=== PATIENT | male | born 1950 | race Caucasian/White ===

== ENCOUNTER 2018-05-12 14:52 | Emergency (ER) | payer OTHER, MEDICARE ==
--- NOTE | 2018-05-12 15:33 | ERPHSYRPT ---
- History of Present Illness Time Seen by Provider: 05/12/18 15:22 Historian: patient Patient Subjective Stated Complaint: sent by Dr Burroughs for an event on his holter of 8 second pause. states has had pain in his left chest x 3 days. denies SOB. denies cough , fever. Triage Nursing Assessment: alert and oriented with c/o CP x 3 days and has had an episode of 8 seconds pwer his Holter.. was told by Dr Burroughs to come to ER. pain in the best chest non radiating. no swelling noted. denies cough Physician History: 67-year-old white male with history of atherosclerotic coronary artery disease, CABG, CVA, myocardial infarctions. Patient arrives on the advice of his physician Dr. Pereira. Patient apparently had an 8 second positive on a Holter monitor. He states that he has been having dull pain which can be located with 1 finger on his left lateral chest for 3 days not associated with breathing. He denies nausea vomiting he states he is not short of breath. Past medical history includes CVA 3 myocardial infarction 2, adult-onset diabetes mellitus which does not require treatment, high blood pressure, atherosclerotic coronary artery disease, coronary artery bypass, Past surgical history includes right carotid endarterectomy, CABG, and cholecystectomy Social history patient denies tobacco alcohol or illicit drug use Timing/Duration: other (left-sided chest pain for 3 days, positive on Holter monitor today 8 seconds in duration) Quality: dullness Location: other (left lateral chest) Chest Pain Radiation: no radiation Severity of Pain-Max: moderate Severity of Pain-Current: mild Modifying Factors: Improves With: nothing Associated Symptoms: No nausea, No vomiting, No palpitations, No heartburn, No abdominal pain, No shortness of breath, No cough, No hurts to breathe, No diaphoresis, No chills, No fever, No fatigue, No weakness, No swelling/lump in chest, No syncope, No rash, No headache, No dizziness, No edema, No back pain Prior Chest Pain/Cardiac Workup: cardiac cath, heart attack Nitro Today/Relief: no nitro taken today Aspirin Treatment Today: 81 mg x 1 (at home), 81 mg x 3 (in er) Allergies/Adverse Reactions: Penicillins Allergy (Intermediate, Verified 05/12/18 15:28) - Review of Systems Constitutional: No Fever, No Chills Eyes: No Symptoms Ears, Nose, & Throat: No Symptoms Respiratory: No Cough, No Dyspnea Cardiac: Chest Pain (localize pain left lateral chest, dull can be located with one fingertip) Abdominal/Gastrointestinal: No Abdominal Pain, No Nausea, No Vomiting, No Diarrhea Genitourinary Symptoms: No Dysuria Musculoskeletal: No Back Pain, No Neck Pain Skin: No Rash Neurological: No Dizziness, No Focal Weakness, No Sensory Changes Psychological: No Symptoms Endocrine: No Symptoms All Other Systems: Reviewed and Negative - Past Medical History Pertinent Past Medical History: Yes Cardiac History: Coronary Artery Disease GI Medical History: GERD - Past Surgical History Past Surgical History: Yes Cardiac: CABG - Social History Smoking Status: Former smoker Exposure to second hand smoke: No Drug Use: none Patient Lives Alone: No - Nursing Vital Signs Nursing Vital Signs: Initial Vital Signs Temperature 97.8 F 05/12/18 15:12 Pulse Rate 76 05/12/18 15:12 Respiratory Rate 18 05/12/18 15:12 Blood Pressure 183/76 05/12/18 15:12 O2 Sat by Pulse Oximetry 97 05/12/18 15:12 Pain Scale Pain Intensity 6 - Physical Exam General Appearance: no apparent distress, alert Eye Exam: PERRL/EOMI, eyes nml inspection Ears, Nose, Throat Exam: normal ENT inspection, moist mucous membranes Neck Exam: normal inspection, non-tender, supple, full range of motion Respiratory Exam: normal breath sounds, lungs clear, No respiratory distress Cardiovascular Exam: regular rate/rhythm, normal peripheral pulses, capillary refill <2 sec Gastrointestinal/Abdomen Exam: soft, No tenderness, No mass Back Exam: normal inspection, No CVA tenderness, No vertebral tenderness Extremity Exam: normal inspection, normal range of motion Neurologic Exam: alert, oriented x 3, cooperative, 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, normal mood/affect, sensation nml, No motor deficits Skin Exam: normal color, warm, dry SpO2 Interpretation: normal (96%), borderline oxygenation SpO2: 96 Oxygen Delivery: Room Air - Course Nursing assessment & vital signs reviewed: Yes EKG Interpreted by Me: RATE (74 bpm), Other (EKG: Sinus arrhythmia,with PVCs, 74 beats per minute, left axis deviation, right bundle branch block,no acute ST or T wave changes) Ordered Tests: Active Orders 24 hr Category Date Time Status French Binder STAT Care 05/12/18 15:17 Active EKG-ER Only STAT Care 05/12/18 15:17 Active IV Insertion STAT Care 05/12/18 15:17 Active Pulse Oximetry (ED) STAT Care 05/12/18 15:17 Active CHEST 1 VIEW (PORTABLE) Stat Exams 05/12/18 15:17 Completed CBC W DIFF Stat Lab 05/12/18 15:50 Completed CMP Stat Lab 05/12/18 15:50 Completed D-DIMER QUANTITATION Stat Lab 05/12/18 15:50 Completed NT PRO BNP Stat Lab 05/12/18 15:50 Completed PROTIME WITH INR Stat Lab 05/12/18 15:50 Completed PTT Stat Lab 05/12/18 15:50 Completed TROPONIN Q3H Lab 05/12/18 15:50 Completed TROPONIN Q3H Lab 05/12/18 18:30 Ordered TROPONIN Q3H Lab 05/12/18 21:30 Ordered TROPONIN Q3H Lab 05/13/18 00:30 Ordered TROPONIN Q3H Lab 05/13/18 03:30 Ordered Medication Summary Discontinued Medications Generic Name Dose Route Start Last Admin Trade Name Freq PRN Reason Stop Dose Admin Aspirin 243 mg 05/12/18 15:50 05/12/18 16:24 Baby Aspirin 81 Mg Chew PO 05/12/18 15:51 243 mg STAT ONE Administration Morphine Sulfate 2 mg 05/12/18 17:09 05/12/18 17:15 Morphine Sulfate 2 Mg Inj IV 05/12/18 17:10 2 mg STAT ONE Administration Morphine Sulfate Confirm 05/12/18 17:12 Morphine Sulfate 2 Mg Inj Administered 05/12/18 17:13 Dose 2 mg .ROUTE .STK-MED ONE Ondansetron HCl 4 mg 05/12/18 17:09 05/12/18 17:16 Zofran 4 Mg/2 Ml Vial IV 05/12/18 17:10 4 mg STAT ONE Administration Ondansetron HCl Confirm 05/12/18 17:12 Zofran 4 Mg/2 Ml Vial Administered 05/12/18 17:13 Dose 4 mg .ROUTE .STK-MED ONE Lab/Rad Data: Laboratory Result Diagrams 05/12/18 15:50 05/12/18 15:50 Laboratory Results 12/19/18 12/19/18 12/19/18 Range/Units 15:50 15:50 15:50 WBC (4.0-10.5) K/mm3 RBC (4.1-5.6) M/mm3 Hgb (12.5-18.0) gm/dl Hct (42-50) % MCV (78-100) fl MCH (26-32) pg MCHC (32-36) g/dl RDW (11.5-14.0) % Plt Count (150-450) K/mm3 MPV (6-9.5) fl Gran % (36.0-66.0) % Eos # (Auto) (0-0.5) Absolute Lymphs (auto) (1.0-4.6) Absolute Monos (auto) (0.0-1.3) Lymphocytes % (24.0-44.0) % Monocytes % (0.0-12.0) % Eosinophils % (0.00-5.0) % Basophils % (0.0-0.4) % Absolute Granulocytes (1.4-6.9) Basophils # (0-0.4) PT 11.9 (8.83-12.87) SECONDS INR 1.02 (0.8-3.0) APTT 31.4 (24.1-36.1) SECONDS D-Dimer 722 H* (215-500) ng/mL Sodium 139 (137-145) mmol/L Potassium 4.1 (3.5-5.1) mmol/L Chloride 102 (98-107) mmol/L Carbon Dioxide 27 (22-30) mmol/L Anion Gap 13.5 (5-15) MEQ/L BUN 9 (9-20) mg/dL Creatinine 1.06 (0.66-1.25) mg/dL Estimated GFR > 60.0 ML/MIN Glucose 166 H (74-106) mg/dL Calcium 8.3 L (8.4-10.2) mg/dL Total Bilirubin 0.40 (0.2-1.3) mg/dL AST 30 (17-59) U/L ALT 26 (0-50) U/L Alkaline Phosphatase 104 (38-126) U/L Troponin I < 0.012 (0.000-0.034) ng/mL NT-Pro-B Natriuret Pep 157 (0-900) pg/mL Serum Total Protein 8.1 (6.3-8.2) g/dL Albumin 3.7 (3.5-5.0) g/dL 05/12/18 Range/Units 15:50 WBC 2.9 L (4.0-10.5) K/mm3 RBC 4.70 (4.1-5.6) M/mm3 Hgb 14.1 (12.5-18.0) gm/dl Hct 43.2 (42-50) % MCV 91.9 (78-100) fl MCH 30.0 (26-32) pg MCHC 32.6 (32-36) g/dl RDW 14.8 H (11.5-14.0) % Plt Count 151 (150-450) K/mm3 MPV 11.7 H (6-9.5) fl Gran % 54.6 (36.0-66.0) % Eos # (Auto) 0.17 (0-0.5) Absolute Lymphs (auto) 0.96 L (1.0-4.6) Absolute Monos (auto) 0.19 (0.0-1.3) Lymphocytes % 32.8 (24.0-44.0) % Monocytes % 6.5 (0.0-12.0) % Eosinophils % 5.8 H (0.00-5.0) % Basophils % 0.3 (0.0-0.4) % Absolute Granulocytes 1.60 (1.4-6.9) Basophils # 0.01 (0-0.4) PT (8.83-12.87) SECONDS INR (0.8-3.0) APTT (24.1-36.1) SECONDS D-Dimer (215-500) ng/mL Sodium (137-145) mmol/L Potassium (3.5-5.1) mmol/L Chloride (98-107) mmol/L Carbon Dioxide (22-30) mmol/L Anion Gap (5-15) MEQ/L BUN (9-20) mg/dL Creatinine (0.66-1.25) mg/dL Estimated GFR ML/MIN Glucose (74-106) mg/dL Calcium (8.4-10.2) mg/dL Total Bilirubin (0.2-1.3) mg/dL AST (17-59) U/L ALT (0-50) U/L Alkaline Phosphatase (38-126) U/L Troponin I (0.000-0.034) ng/mL NT-Pro-B Natriuret Pep (0-900) pg/mL Serum Total Protein (6.3-8.2) g/dL Albumin (3.5-5.0) g/dL - Progress Progress: improved Air Movement: fair Progress Note: 05/12/18 17:19 67-year-old white male arrives with complaint of 3 days of dull chest pain left lateral chest which can be described with one finger symptoms going on for 3 days patient was noted to have a pause on a Holter monitor by his family doctor which lasted 8 seconds. Patient was in no acute distress on arrival however he had a period where he was showing frequent PVCs where he was starting to feel dizzy in the emergency room. . Patient was given aspirin in the emergency room also morphine for pain. Patient's EKG sinus arrhythmia 74 bpm left axis deviation and complete right bundle branch block no acute ST or T wave changes are noted PVCs were noted Patient with normal troponin, d-dimer was elevated at 722 chemistry essentially normal with the exception of a glucose of 166 patient's CBC white blood cell 2.9 hemoglobin 14.1 hematocrit 43.1 platelets 151 I had considered obtaining a CTA on the patient's chest however the family and the patient did not want to do this they felt that they would prefer to have procedures done at the receiving facility. Patient's chest x-ray nonacute chest Patient's vitals were stable I contacted [facility] one call. She also accepted the patient for transfer to [facility] receiving physician will be Dr. Wood. - Departure Time of Disposition: 17:23 Departure Disposition: Transfer ([facility]) Clinical Impression: Abnormal Holter monitor finding Chest pain Qualifiers: Chest pain type: unspecified Qualified Code(s): R07.9 - Chest pain, unspecified Dysrhythmia Qualifiers: Arrhythmia type: unspecified cardiac arrhythmia Qualified Code(s): I49.9 - Cardiac arrhythmia, unspecified Condition: Fair Critical Care Time: No Referrals: LIZET PEREIRA [Primary Care Provider] -
--- NOTE | 2018-05-12 16:16 | XRAY ---
Indication: Left sided chest pain. Comparison: None Portable chest clear. Heart is not enlarged with incidental CABG surgery. Bony thorax intact. Impression: Nonacute chest.
[2018-05-12 16:17] LABS: BASOPHIL % 0.3 % (0.0-0.4); Basophil (Absolute #) 0.01 (0-0.4); Eosinophil % 5.8 % (0.00-5.0); Eosinophil (Absolute #) 0.17 (0-0.5); Granulocytes % 54.6 % (36.0-66.0); Hematocrit 43.2 % (42-50); Hemoglobin 14.1 gm/dl (12.5-18.0); Lymphocyte (Absolute #) 0.96 (1.0-4.6); Lymphocytes % 32.8 % (24.0-44.0); Mean Cell Volume 91.9 fl (78-100); Mean Corpuscular Hgb Concent. 32.6 g/dl (32-36); Mean Platelet Volume 11.7 fl (6-9.5); Monocyte (Absolute #) 0.19 (0.0-1.3); Monocytes % 6.5 % (0.0-12.0); Platelet Count 151 K/mm3 (150-450); Red Cell Distribution Width 14.8 % (11.5-14.0); White Blood Count 2.9 K/mm3 (4.0-10.5)
[2018-05-12 16:19] LABS: INR 1.02 (0.8-3.0)
[2018-05-12 16:22] LABS: PTT 31.4 SECONDS (24.1-36.1)
[2018-05-12] MEDS: BABY ASPIRIN 81 MG CHEW PO ONE (16:24)
[2018-05-12 16:32] LABS: ALBUMIN 3.7 g/dL (3.5-5.0); ALKALINE PHOSPHATASE 104 U/L (38-126); ANION GAP 13.5 MEQ/L (5-15); BLOOD UREA NITROGEN 9 mg/dL (9-20); CHLORIDE 102 mmol/L (98-107); Calcium 8.3 mg/dL (8.4-10.2); Carbon Dioxide 27 mmol/L (22-30); Creatinine 1 1.06 mg/dL (0.66-1.25); Glucose 166 mg/dL (74-106); NT PRO BNP 157 pg/mL (0-900); Potassium 4.1 mmol/L (3.5-5.1); SGOT/AST 30 U/L (17-59); SGPT/ALT 26 U/L (0-50); SODIUM 139 mmol/L (137-145); Total Protein 8.1 g/dL (6.3-8.2)
[2018-05-12] MEDS ORDERED: Zofran 4 MG/2 ML VIAL ONE (17:12)
[2018-05-12] MEDS ORDERED: MORPHINE SULFATE 2 MG INJ ONE (17:12)
[2018-05-12] MEDS: MORPHINE SULFATE 2 MG INJ IV ONE (17:15)
[2018-05-12] MEDS: Zofran 4 MG/2 ML VIAL IV ONE (17:16)
[2018-05-12 17:25] VITALS: BP 150/87; PULSE 50; O2SAT 97
[2018-05-13] MEDS ORDERED: BABY ASPIRIN 81 MG CHEW ONE (00:12)
== END 2018-05-12 18:13 | disposition short-term general hospital (02) ==
LOC: ED 14:52
DX: R94.39 Abnormal result of other cardiovascular function study (principal); I49.9 Cardiac arrhythmia, unspecified; R07.9 Chest pain, unspecified; R42 Dizziness and giddiness; I45.10 Unspecified right bundle-branch block; I49.3 Ventricular premature depolarization; Z95.1 Presence of aortocoronary bypass graft; Z86.73 Personal history of transient ischemic attack (TIA), and cerebral infarction without residual deficits
CPT/HCPCS: 36000; 36415; 71045; 80053; 83880; 84484; 85025; 85379; 85610; 85730; 93005; 93041; 96374; 96375; 99285; J2270; J2405; A9270-GY

== ENCOUNTER 2018-06-09 09:52 | Emergency (ER) | payer OTHER, MEDICARE ==
--- NOTE | 2018-06-09 10:08 | ERPHSYRPT ---
- History of Present Illness Time Seen by Provider: 06/09/18 10:06 Source: patient, family Exam Limitations: no limitations Physician History: 67-year-old white male with history of atherosclerotic coronary artery disease, CABG, CVA, IL, insulin-dependent diabetes mellitus who apparently had a pacer placed 2 weeks ago He is brought by medics patient apparently contacted his he stated that he had been having chest pain. Upon 's arrival patient stated that he was weak and his face was weak in his left arm and weak in his left leg. Patient is sent to off to. CT. patient currently with normal speech patient has trouble remembering how long his pain was he states it was intermittent. Currently with no visible focal deficits, states unknown when left-sided weakness was noted. Past medical history includes CABG, atherosclerotic coronary artery disease, CVA , myocardial infarction, insulin-dependent diabetes mellitus Past surgical history includes right carotid endarterectomy, CABG, cholecystectomy, cardiac pacemaker Timing/Duration: today Severity: moderate Modifying Factors: Improves With: nothing Allergies/Adverse Reactions: Penicillins Allergy (Intermediate, Verified 06/09/18 11:09) Rmfjlbh-Awx-Byp Reductase Inhibitor Allergy (Verified 06/09/18 11:10) Home Medications: Amlodipine Besylate [Norvasc] 10 mg PO DAILY 06/09/18 [History] Aspirin 81 gm Chew [Baby Aspirin 81 mg Chew] 81 mg PO DAILY 06/09/18 [ History] Carvedilol 6.25 mg [Coreg 6.25 MG] 6.25 mg PO BID 06/09/18 [History] Clopidogrel Bisulfate 75 mg [PLAVIX 75 MG Tablet] 75 mg PO DAILY 06/09/18 [History] Metoclopramide HCl 10 mg [Reglan 10 MG] 10 mg PO DAILY 06/09/18 [History] Omeprazole Magnesium [Prilosec Otc] 20 mg PO DAILY 06/09/18 [History] Oxycodone HCl [Oxycontin] 10 mg PO UD PRN 06/09/18 [History] Tamsulosin HCl 0.4 mg [Flomax 0.4 MG] 0.4 mg PO DAILY 06/09/18 [History] Trazodone HCl 50 mg [Desyrel 50 mg] 50 mg PO DAILY 06/09/18 [History] Valsartan [Diovan] 320 mg PO DAILY 06/09/18 [History] - Review of Systems Constitutional: Other (patient felt like he had a left facial weakness), No Fever, No Chills Eyes: No Symptoms Ears, Nose, & Throat: No Symptoms Respiratory: No Cough, No Dyspnea Cardiac: Chest Pain, No Edema, No Syncope Abdominal/Gastrointestinal: No Abdominal Pain, No Nausea, No Vomiting, No Diarrhea Genitourinary Symptoms: No Dysuria Musculoskeletal: Other (Patient states he felt like he had left sided weakness) , No Back Pain, No Neck Pain Skin: No Rash Neurological: Focal Weakness (Patient states he felt like he had left facial droop and left arm and leg weakness unknown period of time), Other, No Dizziness Psychological: No Symptoms Endocrine: No Symptoms All Other Systems: Reviewed and Negative - Past Medical History Pertinent Past Medical History: Yes Cardiac History: Coronary Artery Disease GI Medical History: GERD - Past Surgical History Past Surgical History: Yes Cardiac: CABG - Social History Smoking Status: Former smoker Exposure to second hand smoke: No Drug Use: none Patient Lives Alone: No - Nursing Vital Signs Nursing Vital Signs: Initial Vital Signs Temperature 98.2 F 06/09/18 10:24 Pulse Rate 64 06/09/18 10:24 Blood Pressure 187/93 06/09/18 10:24 O2 Sat by Pulse Oximetry 97 06/09/18 10:24 Pain Scale Pain Intensity 0 - Physical Exam General Appearance: no apparent distress, alert Eye Exam: PERRL/EOMI, eyes nml inspection Ears, Nose, Throat Exam: normal ENT inspection, TMs normal, pharynx normal, moist mucous membranes Neck Exam: normal inspection, non-tender, supple, full range of motion Respiratory Exam: normal breath sounds, lungs clear, No respiratory distress Cardiovascular Exam: regular rate/rhythm, normal heart sounds, normal peripheral pulses, capillary refill <2 sec Gastrointestinal/Abdomen Exam: soft, normal bowel sounds, No tenderness, No mass Back Exam: normal inspection, normal range of motion, No CVA tenderness, No vertebral tenderness Extremity Exam: normal inspection, normal range of motion, pelvis stable Neurologic Exam: alert, oriented x 3, cooperative, 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 Minimal motion artifact. 2. Stable old left temporal infarct. 3. Normal aging brain including atrophy and degenerative microvascular ischemia. 4. No acute intracranial abnormalities) Ordered Tests: Active Orders 24 hr Category Date Time Status Accucheck STAT Care 06/09/18 09:55 Active Flatbed Stitcher STAT Care 06/09/18 09:55 Active EKG-ER Only STAT Care 06/09/18 09:55 Active IV Insertion STAT Care 06/09/18 09:55 Active Pulse Oximetry (ED) STAT Care 06/09/18 09:55 Active CHEST 1 VIEW (PORTABLE) Stat Exams 06/09/18 11:08 Completed HEAD WITHOUT CONTRAST [CT] Stat Exams 06/09/18 09:55 Completed CBC W DIFF Stat Lab 06/09/18 10:15 Completed CMP Stat Lab 06/09/18 10:15 Completed D-DIMER QUANTITATION Stat Lab 06/09/18 10:15 Completed PROTIME WITH INR Stat Lab 06/09/18 10:15 Completed PTT Stat Lab 06/09/18 10:15 Completed TROPONIN Q3H Lab 06/09/18 10:15 Completed TROPONIN Q3H Lab 06/09/18 13:36 Completed TROPONIN Q3H Lab 06/09/18 16:15 Ordered TROPONIN Q3H Lab 06/09/18 19:15 Ordered TROPONIN Q3H Lab 06/09/18 22:15 Ordered Medication Summary Discontinued Medications Generic Name Dose Route Start Last Admin Trade Name Freq PRN Reason Stop Dose Admin Aspirin 243 mg 06/09/18 11:11 06/09/18 11:21 Baby Aspirin 81 Mg Chew PO 06/09/18 11:12 243 mg STAT ONE Administration Aspirin Confirm 06/09/18 11:18 Baby Aspirin 81 Mg Chew Administered 06/09/18 11:19 Dose 243 mg .ROUTE .STK-MED ONE Morphine Sulfate 2 mg 06/09/18 14:28 06/09/18 14:38 Morphine Sulfate 2 Mg Inj IV 06/09/18 14:29 2 mg STAT ONE Administration Morphine Sulfate Confirm 06/09/18 14:28 Morphine Sulfate 2 Mg Inj Administered 06/09/18 14:29 Dose 2 mg .ROUTE .STK-MED ONE Ondansetron HCl Confirm 06/09/18 15:00 Zofran 4 Mg/2 Ml Vial Administered 06/09/18 15:01 Dose 4 mg .ROUTE .STK-MED ONE Lab/Rad Data: Laboratory Result Diagrams 06/09/18 10:15 06/09/18 10:15 Laboratory Results 06/09/18 06/09/18 06/09/18 Range/Units 13:36 10:15 10:15 WBC (4.0-10.5) K/mm3 RBC (4.1-5.6) M/mm3 Hgb (12.5-18.0) gm/dl Hct (42-50) % MCV (78-100) fl MCH (26-32) pg MCHC (32-36) g/dl RDW (11.5-14.0) % Plt Count (150-450) K/mm3 MPV (6-9.5) fl Gran % (36.0-66.0) % Eos # (Auto) (0-0.5) Absolute Lymphs (auto) (1.0-4.6) Absolute Monos (auto) (0.0-1.3) Lymphocytes % (24.0-44.0) % Monocytes % (0.0-12.0) % Eosinophils % (0.00-5.0) % Basophils % (0.0-0.4) % Absolute Granulocytes (1.4-6.9) Basophils # (0-0.4) PT 11.7 (8.83-12.87) SECONDS INR 1.01 (0.8-3.0) APTT 30.8 (24.1-36.1) SECONDS D-Dimer 666 H* (215-500) ng/mL Sodium (137-145) mmol/L Potassium (3.5-5.1) mmol/L Chloride (98-107) mmol/L Carbon Dioxide (22-30) mmol/L Anion Gap (5-15) MEQ/L BUN (9-20) mg/dL Creatinine (0.66-1.25) mg/dL Estimated GFR ML/MIN Glucose (74-106) mg/dL Calcium (8.4-10.2) mg/dL Total Bilirubin (0.2-1.3) mg/dL AST (17-59) U/L ALT (0-50) U/L Alkaline Phosphatase (38-126) U/L Troponin I < 0.012 < 0.012 (0.000-0.034) ng/mL Serum Total Protein (6.3-8.2) g/dL Albumin (3.5-5.0) g/dL 06/09/18 06/09/18 Range/Units 10:15 10:15 WBC 3.5 L (4.0-10.5) K/mm3 RBC 5.23 (4.1-5.6) M/mm3 Hgb 15.4 (12.5-18.0) gm/dl Hct 47.0 (42-50) % MCV 89.9 (78-100) fl MCH 29.4 (26-32) pg MCHC 32.8 (32-36) g/dl RDW 14.1 H (11.5-14.0) % Plt Count 152 (150-450) K/mm3 MPV 11.6 H (6-9.5) fl Gran % 52.3 (36.0-66.0) % Eos # (Auto) 0.26 (0-0.5) Absolute Lymphs (auto) 1.19 (1.0-4.6) Absolute Monos (auto) 0.21 (0.0-1.3) Lymphocytes % 34.2 (24.0-44.0) % Monocytes % 6.0 (0.0-12.0) % Eosinophils % 7.5 H (0.00-5.0) % Basophils % 0.0 (0.0-0.4) % Absolute Granulocytes 1.82 (1.4-6.9) Basophils # 0 (0-0.4) PT (8.83-12.87) SECONDS INR (0.8-3.0) APTT (24.1-36.1) SECONDS D-Dimer (215-500) ng/mL Sodium 137 (137-145) mmol/L Potassium 4.4 (3.5-5.1) mmol/L Chloride 100 (98-107) mmol/L Carbon Dioxide 27 (22-30) mmol/L Anion Gap 14.3 (5-15) MEQ/L BUN 9 (9-20) mg/dL Creatinine 1.00 (0.66-1.25) mg/dL Estimated GFR > 60.0 ML/MIN Glucose 224 H (74-106) mg/dL Calcium 9.0 (8.4-10.2) mg/dL Total Bilirubin 0.70 (0.2-1.3) mg/dL AST 40 (17-59) U/L ALT 33 (0-50) U/L Alkaline Phosphatase 130 H (38-126) U/L Troponin I (0.000-0.034) ng/mL Serum Total Protein 8.9 H (6.3-8.2) g/dL Albumin 4.2 (3.5-5.0) g/dL - Progress Progress: improved Progress Note: 06/09/18 11:37 67-year-old white male with history of CABG, atherosclerotic coronary artery disease CVA, IL, insulin-dependent diabetes mellitus, right carotid endarterectomy, CABG and cholecystectomy Arrives with complaint of a anterior chest pain which occurred at unknown period of time also complaining of some left-sided feeling of weakness of his face and arm and leg. On arrival patient with a normal physical examination normal neurologic examination head CT no acute intracranial abnormalities. Patient with a paced rhythm patient with normal EKG. call was put out to [facility] ER one call patient requesting transfer to [facility]. Patient was given aspirin 324 mg orally I've discussed the case with Dr Worthington at [facility] ER she requests that the patient has telemetry neuro examination prior to disposition. Patient did have some chest pain which again was unknown period of time. Will go ahead and ordered obtained [facility] neurology consult. 06/09/18 14:49 Patient is cleared by Teleneurology Dr. Umanzor, she felt that the patient had unmasking of a previous CVA which was caused by his chest pain. Patient is already on Plavix and aspirin she did not recommend further medications. Patient apparently is scheduled cerebral angiograph E and cardiac catheter next week. Patient is continuing to complain of pain in her his anterior chest he is given 2 mg of morphine with improvement. He had already received 243 mg of aspirin. Patient's troponin remains normal. Will discharge patient. , - Departure Time of Disposition: 14:51 Departure Disposition: Transfer ([facility]) Clinical Impression: Left-sided weakness Chest pain Qualifiers: Chest pain type: unspecified Qualified Code(s): R07.9 - Chest pain, unspecified Condition: Fair Critical Care Time: No Referrals: LIZET SOLIS [Primary Care Provider] -
[2018-06-09 10:25] LABS: Basophil (Absolute #) 0 (0-0.4); Eosinophil % 7.5 % (0.00-5.0); Eosinophil (Absolute #) 0.26 (0-0.5); Granulocytes % 52.3 % (36.0-66.0); Hemoglobin 15.4 gm/dl (12.5-18.0); Lymphocyte (Absolute #) 1.19 (1.0-4.6); Lymphocytes % 34.2 % (24.0-44.0); Mean Cell Volume 89.9 fl (78-100); Mean Corpuscular Hemoglobin 29.4 pg (26-32); Mean Corpuscular Hgb Concent. 32.8 g/dl (32-36); Mean Platelet Volume 11.6 fl (6-9.5); Monocyte (Absolute #) 0.21 (0.0-1.3); Platelet Count 152 K/mm3 (150-450); Red Blood Count 5.23 M/mm3 (4.1-5.6); Red Cell Distribution Width 14.1 % (11.5-14.0); White Blood Count 3.5 K/mm3 (4.0-10.5)
--- NOTE | 2018-06-09 10:28 | XRAY ---
Indication: Left facial weakness. History strokes. Multiple contiguous axial images obtained through the head without contrast. Comparison: November 17, 2010. Images through base of the brain slightly degraded by motion artifact. Again age-appropriate global atrophy and small old left anterior temporal lobe infarct with progressive worsening mild periventricular degenerative micro-ischemia bilaterally. No acute intracranial hemorrhage, abnormal extra-axial fluid collection, or mass effect. Fourth ventricle is midline without hydrocephalus. Bony calvarium intact. Visualized paranasal sinuses and mastoid air cells are clear. Impression: 1. Minimal motion artifact. 2. Stable old left temporal lobe infarct. 3. Normal aging brain including atrophy and degenerative micro-ischemia. 4. No acute intracranial abnormalities. Comment: MRI may yield further information if there remains further clinical concern. CTDI 68.65
[2018-06-09 10:37] LABS: ALBUMIN 4.2 g/dL (3.5-5.0); ALKALINE PHOSPHATASE 130 U/L (38-126); ANION GAP 14.3 MEQ/L (5-15); BLOOD UREA NITROGEN 9 mg/dL (9-20); CHLORIDE 100 mmol/L (98-107); Carbon Dioxide 27 mmol/L (22-30); Glucose 224 mg/dL (74-106); Potassium 4.4 mmol/L (3.5-5.1); SGOT/AST 40 U/L (17-59); SGPT/ALT 33 U/L (0-50); SODIUM 137 mmol/L (137-145); Total Protein 8.9 g/dL (6.3-8.2)
[2018-06-09 10:42] LABS: INR 1.01 (0.8-3.0); PROTIME 11.7 SECONDS (8.83-12.87)
[2018-06-09 10:44] LABS: PTT 30.8 SECONDS (24.1-36.1)
[2018-06-09] MEDS ORDERED: BABY ASPIRIN 81 MG CHEW PO ONE (11:11)
[2018-06-09] MEDS ORDERED: BABY ASPIRIN 81 MG CHEW ONE (11:18)
--- NOTE | 2018-06-09 11:29 | XRAY ---
Indication: Chest pain. Comparison: May 12, 2018. Portable chest remains clear. Heart is not enlarged again with CABG surgery. New left-sided dual-lead pacemaker without complications. Bony thorax intact. Impression: Nonacute chest with chronic features.
[2018-06-09] MEDS ORDERED: MORPHINE SULFATE 2 MG INJ ONE (14:28)
[2018-06-09] MEDS ORDERED: MORPHINE SULFATE 2 MG INJ IV ONE (14:28)
[2018-06-09 14:29] VITALS: BP 187/79
[2018-06-09 14:53] VITALS: PULSE 67; O2SAT 94
[2018-06-09] MEDS ORDERED: Zofran 4 MG/2 ML VIAL ONE (15:00)
== END 2018-06-09 15:24 | disposition short-term general hospital (02) ==
LOC: ED 09:52
DX: R07.9 Chest pain, unspecified (principal); I25.810 Atherosclerosis of coronary artery bypass graft(s) without angina pectoris; R29.810 Facial weakness; E11.9 Type 2 diabetes mellitus without complications; Z86.73 Personal history of transient ischemic attack (TIA), and cerebral infarction without residual deficits; I25.2 Old myocardial infarction; Z79.899 Other long term (current) drug therapy; K21.9 Gastro-esophageal reflux disease without esophagitis
CPT/HCPCS: 36000; 36415; 70450; 71045; 80053; 82962; 84484; 85025; 85379; 85610; 85730; 93005; 93041; 96374; 99285; Q3014; J2270; J2405; A9270-GY

== ENCOUNTER 2018-12-13 15:34 | Inpatient (IN) | payer MEDICARE ==
[2018-12-13] MEDS: Sodium Chloride 0.9% 1000 ML 1,000 ML IV SCH ×2 (16:16→21:45)
[2018-12-13 16:19] LABS: BASOPHIL % 0.1 % (0.0-0.4); Basophil (Absolute #) 0.01 (0-0.4); Eosinophil % 0.1 % (0.00-5.0); Eosinophil (Absolute #) 0.01 (0-0.5); Granulocyte Absolute (ANC) 6.35 (1.4-6.9); Granulocytes % 82.2 % (36.0-66.0); Hematocrit 40.5 % (42-50); Hemoglobin 13.1 gm/dl (12.5-18.0); Lymphocyte (Absolute #) 0.85 (1.0-4.6); Mean Cell Volume 88.8 fl (78-100); Mean Corpuscular Hemoglobin 28.7 pg (26-32); Mean Corpuscular Hgb Concent. 32.3 g/dl (32-36); Mean Platelet Volume 11.7 fl (6-9.5); Monocyte (Absolute #) 0.51 (0.0-1.3); Monocytes % 6.6 % (0.0-12.0); Platelet Count 229 K/mm3 (150-450); Red Blood Count 4.56 M/mm3 (4.1-5.6); White Blood Count 7.7 K/mm3 (4.0-10.5)
--- NOTE | 2018-12-13 16:21 | ERPHSYRPT ---
- History of Present Illness Time Seen by Provider: 12/13/18 16:03 Historian: patient, other (spouse) Exam Limitations: no limitations Patient Subjective Stated Complaint: PT HERE FOR INCREASING WEAKNESS SINCE THURSDAY, WITH INCREASE LOOSE STOOLS, STATES SHE IS UNABLE TO CARE FOR HIM AT HOME, SHE STATES HE FELL THIS WEEKEND AT HOME. PT DENIES ANY INJURY Triage Nursing Assessment: PT ARRIVED PER WC AND IN BED WITH ASSIST OF ONE,PT ALERT, RESP EASY, SKIN W/D/P, SLIGHT EDEMA TO LOWER LEGS Physician History: Pt has been suffering of chronic gastrointestinal problems, underwent different work ups, evaluations. He has been unable to control his diarrhea for 3-4 days, and becoming increasingly weak according to his . He was unable to get up today, due to generalized weakness. They denies nausea, vomiting, no fever at home, no recent antibiotics, had chest pain yesterday, resolved, and c/o diffuse abdominal pain. They called his physician and was directed here for workup and admission. Timing/Duration: day(s) (3) Activities at Onset: none Quality: cramping Abdominal Pain Onset Location: generalized abdomen Pain Radiation: no radiation Severity of Pain-Max: mild Severity of Pain-Current: mild Modifying Factors: Improves With: nothing Associated Symptoms: chest pain, diarrhea, loss of appetite Previous symptoms: same symptoms as today Allergies/Adverse Reactions: Penicillins Allergy (Intermediate, Verified 12/13/18 16:00) Arcpgki-Gap-Zlh Reductase Inhibitor Allergy (Verified 12/13/18 16:00) Home Medications: Amlodipine Besylate [Norvasc] 10 mg PO DAILY 06/09/18 [History] Aspirin 81 gm Chew [Baby Aspirin 81 mg Chew] 81 mg PO DAILY 06/09/18 [ History] Carvedilol 6.25 mg [Coreg 6.25 MG] 6.25 mg PO BID 06/09/18 [History] Clopidogrel Bisulfate 75 mg [PLAVIX 75 MG Tablet] 75 mg PO DAILY 06/09/18 [History] Metoclopramide HCl 10 mg [Reglan 10 MG] 10 mg PO DAILY 06/09/18 [History] Omeprazole Magnesium [Prilosec Otc] 20 mg PO DAILY 06/09/18 [History] Oxycodone HCl [Oxycontin] 10 mg PO UD PRN 06/09/18 [History] Tamsulosin HCl 0.4 mg [Flomax 0.4 MG] 0.4 mg PO DAILY 06/09/18 [History] Trazodone HCl 50 mg [Desyrel 50 mg] 50 mg PO DAILY 06/09/18 [History] Valsartan [Diovan] 320 mg PO DAILY 06/09/18 [History] Hx Influenza Vaccination/Date Given: No Hx Pneumococcal Vaccination/Date Given: No Immunizations Up to Date: Yes - Review of Systems Constitutional: Weakness Ears, Nose, & Throat: No Symptoms Respiratory: No Symptoms Cardiac: Chest Pain (yesterday, resolved.) Abdominal/Gastrointestinal: Abdominal Pain, Diarrhea, No Hematemesis, No Hematochezia, No Melena Genitourinary Symptoms: No Symptoms Musculoskeletal: No Symptoms Skin: No Symptoms Neurological: No Symptoms All Other Systems: Reviewed and Negative - Past Medical History Pertinent Past Medical History: Yes Neurological History: Stroke Cardiac History: Coronary Artery Disease, Hypertension, Myocardial Infarction ( [place]) GI Medical History: GERD - Past Surgical History Past Surgical History: Yes Cardiac: CABG, Pacemaker Gastrointestinal: Cholecystectomy - Social History Smoking Status: Former smoker Exposure to second hand smoke: No Drug Use: none Patient Lives Alone: No - Nursing Vital Signs Nursing Vital Signs: Initial Vital Signs Temperature 101.8 F 12/13/18 16:04 Pulse Rate 83 12/13/18 16:04 Respiratory Rate 18 12/13/18 16:04 Blood Pressure 117/82 12/13/18 16:04 O2 Sat by Pulse Oximetry 92 L 12/13/18 16:04 Pain Scale Pain Intensity 0 - Physical Exam General Appearance: no apparent distress Eye Exam: eyes nml inspection Ears, Nose, Throat Exam: normal ENT inspection, moist mucous membranes Neck Exam: normal inspection, non-tender, supple, No JVD Respiratory Exam: normal breath sounds, lungs clear, airway intact, No chest tenderness, No respiratory distress Cardiovascular Exam: regular rate/rhythm, normal heart sounds, normal peripheral pulses, No murmur Gastrointestinal/Abdomen Exam: soft, tenderness (generalized, mild), other ( diminished bowel sounds), No distention, No mass, No guarding, No ecchymosis, No pulsatile mass, No rebound, No organomegaly Back Exam: normal inspection, No CVA tenderness Extremity Exam: normal inspection, No calf tenderness Neurologic Exam: alert, oriented x 3, cooperative, normal mood/affect Skin Exam: normal color, warm, dry, No rash, No diaphoresis Lymphatic Exam: No adenopathy SpO2 Interpretation: borderline oxygenation SpO2: 92 O2 Delivery: Room Air - Course Nursing assessment & vital signs reviewed: Yes EKG Interpreted by Me: RATE, Left Constantine Deviation, Right Bundle Branch Block, Non -specific ST Changes - Radiology Exams Chest X-ray Interpretation: Interpreted by me, Reviewed by me, Other (LLL infiltrate) - CT Exams Abdomen/Pelvis CT Interpretation: Tele-radiologist Report, Other (LLL Pneumonia) Ordered Tests: Active Orders 24 hr Category Date Time Status Up With Assistance ROUTINE Activity 12/13/18 20:20 Active Accucheck Q6H Care 12/13/18 20:20 Active Admit as Inpatient ROUTINE Care 12/13/18 20:20 Active Code Status Order ROUTINE Care 12/13/18 20:20 Active EKG-ER Only STAT Care 12/13/18 16:10 Active IV Care Q6H Care 12/13/18 20:20 Active IV Insertion STAT Care 12/13/18 16:10 Active Oxygen-ED Only Nasal Cannula 2 lpm Care 12/13/18 16:12 Active Oxygen-ED Only Nasal Cannula 2 lpm Care 12/13/18 16:22 Active 1800 Calorie ADA Diet 12/13/18 Dinner Active ABDOMEN AND PELVIS W/0 CONTRAS [CT] Stat Exams 12/13/18 17:53 Taken CHEST 1 VIEW (PORTABLE) Stat Exams 12/13/18 16:11 Completed ABG [ARTERIAL BLOOD GASES] Stat Lab 12/13/18 19:27 Completed AMYLASE Stat Lab 12/13/18 16:10 Completed BLOOD CULTURE Stat Lab 12/13/18 20:17 Ordered BMP AM.LAB Lab 12/14/18 04:00 Ordered CBC W DIFF AM.LAB Lab 12/14/18 04:00 Ordered CBC W DIFF Stat Lab 12/13/18 16:10 Completed CK-Creatinine Phosphokinase Stat Lab 12/13/18 16:10 Completed CMP Stat Lab 12/13/18 16:10 Completed LIPASE Stat Lab 12/13/18 16:10 Completed Lactic Acid AM.LAB Lab 12/14/18 04:00 Ordered Lactic Acid Stat Lab 12/13/18 16:18 Completed Lactic Acid Stat Lab 12/13/18 19:27 Completed NT PRO BNP Stat Lab 12/13/18 16:10 Completed Occult Blood, Other Screening Stat Lab 12/13/18 16:10 Uncollected PROTIME WITH INR Stat Lab 12/13/18 16:10 Completed PTT Stat Lab 12/13/18 16:10 Completed TROPONIN Q3H Lab 12/13/18 16:10 Completed TROPONIN Q3H Lab 12/13/18 19:10 Completed TROPONIN Q3H Lab 12/13/18 22:15 Ordered TROPONIN Q3H Lab 12/14/18 01:15 Ordered TROPONIN Q3H Lab 12/14/18 04:15 Ordered UA W/RFX UR CULTURE Stat Lab 12/13/18 17:30 Completed Oxygen Nasal Cannula 2 lpm RT 12/13/18 20:20 Active Medication Summary Generic Name Dose Route Start Last Admin Trade Name Freq PRN Reason Stop Dose Admin Acetaminophen 650 mg 12/13/18 20:20 Tylenol 325 Mg PO 01/12/19 20:19 Q4H PRN PRN PAIN AND/OR FEVER Albuterol/Ipratropium 3 ml 12/13/18 20:20 Duoneb 0.5-3 Mg/3 Ml Neb IH 01/12/19 20:19 Q4HPRN PRN SHORTNESS OF BREATH/WHEEZING Sodium Chloride 1,000 mls @ 100 mls/hr 12/13/18 16:15 12/13/18 16:16 Sodium Chloride 0.9% 1000 Ml IV 01/12/19 16:14 100 mls/hr .Q10H YOLANDE Administration Azithromycin 500 mg in 250 mls @ 250 mls/hr 12/14/18 10:00 Zithromax 500 Mg/ 250 Ml Nacl Premix IV 01/13/19 09:59 Q24H10 YOLANDE Ceftriaxone Sodium/Dextrose 1 g in 50 mls @ 100 mls/hr 12/14/18 10:00 Rocephin 1 Gm-D5w 50 Ml Bag IV 01/13/19 09:59 Q24H10 YOLANED Sodium Chloride 1,000 mls @ 100 mls/hr 12/13/18 20:30 Sodium Chloride 0.45% 1000 Ml IV 01/12/19 20:29 .Q10H YOLANDE Insulin Aspart 0 unit 12/13/18 20:20 Novolog Insulin SQ 01/12/19 20:19 UD PRN HYPERGLYCEMIA Ondansetron HCl 4 mg 12/13/18 20:20 Zofran 4 Mg/2 Ml Vial IV 01/12/19 20:19 Q6H PRN PRN NAUSEA/VOMITING Discontinued Medications Generic Name Dose Route Start Last Admin Trade Name Freq PRN Reason Stop Dose Admin Acetaminophen 1,000 mg 12/13/18 16:26 12/13/18 16:39 Tylenol Extra Strength 500 Mg PO 12/13/18 16:27 1,000 mg STAT STA Administration Acetaminophen Confirm 12/13/18 16:38 Tylenol Extra Strength 500 Mg Administered 12/13/18 16:39 Dose 500 mg .ROUTE .STK-MED ONE Acetaminophen Confirm 12/13/18 16:38 Tylenol Extra Strength 500 Mg Administered 12/13/18 16:39 Dose 500 mg .ROUTE .STK-MED ONE Sodium Chloride 1,000 mls @ 999 mls/hr 12/13/18 16:36 12/13/18 18:51 Sodium Chloride 0.9% 1000 Ml IV 12/13/18 17:36 Infused .Q1H1M STA Infusion Ceftriaxone Sodium/Dextrose 1 g in 50 mls @ 100 mls/hr 12/13/18 19:11 19:19 Rocephin 1 Gm-D5w 50 Ml Bag IV 12/13/18 19:40 50 mls/hr STAT STA 50 mls/hr Administration Azithromycin 500 mg in 250 mls @ 250 mls/hr 12/13/18 19:12 12/13/18 20:20 Zithromax 500 Mg/ 250 Ml Nacl Premix IV 12/13/18 20:11 250 mls/hr STAT STA 250 mls/hr Administration Azithromycin Confirm 12/13/18 19:17 Zithromax 500 Mg/ 250 Ml Nacl Premix Administered 12/13/18 19:18 Dose 500 mg in 250 mls @ ud IV .STK-MED ONE Ceftriaxone Sodium/Dextrose Confirm 12/13/18 19:17 Rocephin 1 Gm-D5w 50 Ml Bag Administered 12/13/18 19:18 Dose 1 g in 50 mls @ ud IV .STK-MED ONE Insulin Human Regular 10 unit 12/13/18 19:03 12/13/18 19:19 Novolin R IV 12/13/18 19:04 10 unit STAT ONE Administration Insulin Human Regular Confirm 12/13/18 19:16 Novolin R Administered 12/13/18 19:17 Dose 10 unit .ROUTE .STK-MED ONE Levetiracetam 1,000 mg 12/13/18 18:26 12/13/18 18:34 Keppra 500 Mg PO 12/13/18 18:27 Not Given NOW ONE Lab/Rad Data: Laboratory Result Diagrams 12/13/18 16:10 12/13/18 16:10 Laboratory Results 12/13/18 12/13/18 12/13/18 Range/Units 19:27 19:27 19:10 WBC (4.0-10.5) K/mm3 RBC (4.1-5.6) M/mm3 Hgb (12.5-18.0) gm/dl Hct (42-50) % MCV (78-100) fl MCH (26-32) pg MCHC (32-36) g/dl RDW (11.5-14.0) % Plt Count (150-450) K/mm3 MPV (6-9.5) fl Gran % (36.0-66.0) % Eos # (Auto) (0-0.5) Absolute Lymphs (auto) (1.0-4.6) Absolute Monos (auto) (0.0-1.3) Lymphocytes % (24.0-44.0) % Monocytes % (0.0-12.0) % Eosinophils % (0.00-5.0) % Basophils % (0.0-0.4) % Absolute Granulocytes (1.4-6.9) Basophils # (0-0.4) PT (8.83-12.87) SECONDS INR (0.8-3.0) APTT (24.1-36.1) SECONDS Puncture Site LEFT RADIAL pCO2 44 (35-45) mmHg pO2 92 (75-100) mmHg Base Excess 2.1 H (-2.0-2.0) O2 Saturation 95.2 (94-100) g/dF ABG pH 7.40 (7.35-7.45) ABG HCO3 27.3 (22-28) ABG O2 Sat (Measured) 98.8 (95-100) % Obdulio Test YES A-a Gradient 81 a/A Ratio 0.53 Hemoglobin 12.1 Carboxyhemoglobin 2.3 (0.0-6.9) % THgb Methemoglobin 1.3 L (1.4-1.5) % Temperature 37.0 C POC O2 Flow Rate 32 % Sodium (137-145) mmol/L Potassium 3.7 (3.5-5.1) mmol/L Chloride (98-107) mmol/L Carbon Dioxide (22-30) mmol/L Anion Gap (5-15) MEQ/L BUN (9-20) mg/dL Creatinine (0.66-1.25) mg/dL Estimated GFR ML/MIN Glucose (74-106) mg/dL Lactic Acid 1.4 (0.4-2.0) Calcium (8.4-10.2) mg/dL Total Bilirubin (0.2-1.3) mg/dL AST (17-59) U/L ALT (0-50) U/L Alkaline Phosphatase (38-126) U/L Creatine Kinase (55-170) U/L Troponin I 0.013 (0.000-0.034) ng/mL NT-Pro-B Natriuret Pep (0-900) pg/mL Serum Total Protein (6.3-8.2) g/dL Albumin (3.5-5.0) g/dL Amylase (30-110) U/L Lipase (23-300) U/L Urine Color (YELLOW) Urine Appearance (CLEAR) Urine pH (5-6) Ur Specific [place] (1.005-1.025) Urine Protein (Negative) Urine Ketones (NEGATIVE) Urine Blood (0-5) [place]/ul Urine Nitrite (NEGATIVE) Urine Bilirubin (NEGATIVE) Urine Urobilinogen (0-1) mg/dL Ur Leukocyte Esterase (NEGATIVE) Urine WBC (Auto) (0-5) /HPF Urine RBC (Auto) (0-2) /HPF U Epithel Cells (Auto) (FEW) /HPF Urine Bacteria (Auto) (NEGATIVE) /HPF Urine Mucus (Auto) (NEGATIVE) /HPF Urine Culture Reflexed (NO) Urine Glucose (NEGATIVE) mg/dL 07/22/19 07/22/19 07/22/19 Range/Units 17:30 16:18 16:10 WBC (4.0-10.5) K/mm3 RBC (4.1-5.6) M/mm3 Hgb (12.5-18.0) gm/dl Hct (42-50) % MCV (78-100) fl MCH (26-32) pg MCHC (32-36) g/dl RDW (11.5-14.0) % Plt Count (150-450) K/mm3 MPV (6-9.5) fl Gran % (36.0-66.0) % Eos # (Auto) (0-0.5) Absolute Lymphs (auto) (1.0-4.6) Absolute Monos (auto) (0.0-1.3) Lymphocytes % (24.0-44.0) % Monocytes % (0.0-12.0) % Eosinophils % (0.00-5.0) % Basophils % (0.0-0.4) % Absolute Granulocytes (1.4-6.9) Basophils # (0-0.4) PT (8.83-12.87) SECONDS INR (0.8-3.0) APTT (24.1-36.1) SECONDS Puncture Site pCO2 (35-45) mmHg pO2 (75-100) mmHg Base Excess (-2.0-2.0) O2 Saturation (94-100) g/dF ABG pH (7.35-7.45) ABG HCO3 (22-28) ABG O2 Sat (Measured) (95-100) % Obdulio Test A-a Gradient a/A Ratio Hemoglobin Carboxyhemoglobin (0.0-6.9) % THgb Methemoglobin (1.4-1.5) % Temperature C POC O2 Flow Rate % Sodium (137-145) mmol/L Potassium (3.5-5.1) mmol/L Chloride (98-107) mmol/L Carbon Dioxide (22-30) mmol/L Anion Gap (5-15) MEQ/L BUN (9-20) mg/dL Creatinine (0.66-1.25) mg/dL Estimated GFR ML/MIN Glucose (74-106) mg/dL Lactic Acid 4.1 H (0.4-2.0) Calcium (8.4-10.2) mg/dL Total Bilirubin (0.2-1.3) mg/dL AST (17-59) U/L ALT (0-50) U/L Alkaline Phosphatase (38-126) U/L Creatine Kinase (55-170) U/L Troponin I 0.015 (0.000-0.034) ng/mL NT-Pro-B Natriuret Pep (0-900) pg/mL Serum Total Protein (6.3-8.2) g/dL Albumin (3.5-5.0) g/dL Amylase (30-110) U/L Lipase (23-300) U/L Urine Color YELLOW (YELLOW) Urine Appearance SLIGHTLY CLOUDY (CLEAR) Urine pH 5.0 (5-6) Ur Specific [place] 1.033 (1.005-1.025) Urine Protein 30 (Negative) Urine Ketones TRACE (NEGATIVE) Urine Blood MODERATE (0-5) [place]/ul Urine Nitrite NEGATIVE (NEGATIVE) Urine Bilirubin NEGATIVE (NEGATIVE) Urine Urobilinogen NEGATIVE (0-1) mg/dL Ur Leukocyte Esterase NEGATIVE (NEGATIVE) Urine WBC (Auto) 0-2 (0-5) /HPF Urine RBC (Auto) 0-2 (0-2) /HPF U Epithel Cells (Auto) NONE (FEW) /HPF Urine Bacteria (Auto) NONE (NEGATIVE) /HPF Urine Mucus (Auto) SLIGHT (NEGATIVE) /HPF Urine Culture Reflexed NO (NO) Urine Glucose >=500 (NEGATIVE) mg/dL 12/13/18 12/13/18 12/13/18 Range/Units 16:10 16:10 16:10 WBC 7.7 (4.0-10.5) K/mm3 RBC 4.56 (4.1-5.6) M/mm3 Hgb 13.1 (12.5-18.0) gm/dl Hct 40.5 L (42-50) % MCV 88.8 (78-100) fl MCH 28.7 (26-32) pg MCHC 32.3 (32-36) g/dl RDW 14.0 (11.5-14.0) % Plt Count 229 (150-450) K/mm3 MPV 11.7 H (6-9.5) fl Gran % 82.2 H (36.0-66.0) % Eos # (Auto) 0.01 (0-0.5) Absolute Lymphs (auto) 0.85 L (1.0-4.6) Absolute Monos (auto) 0.51 (0.0-1.3) Lymphocytes % 11.0 L (24.0-44.0) % Monocytes % 6.6 (0.0-12.0) % Eosinophils % 0.1 (0.00-5.0) % Basophils % 0.1 (0.0-0.4) % Absolute Granulocytes 6.35 (1.4-6.9) Basophils # 0.01 (0-0.4) PT 14.2 H (8.83-12.87) SECONDS INR 1.25 (0.8-3.0) APTT 33.1 (24.1-36.1) SECONDS Puncture Site pCO2 (35-45) mmHg pO2 (75-100) mmHg Base Excess (-2.0-2.0) O2 Saturation (94-100) g/dF ABG pH (7.35-7.45) ABG HCO3 (22-28) ABG O2 Sat (Measured) (95-100) % Obdulio Test A-a Gradient a/A Ratio Hemoglobin Carboxyhemoglobin (0.0-6.9) % THgb Methemoglobin (1.4-1.5) % Temperature C POC O2 Flow Rate % Sodium 134 L (137-145) mmol/L Potassium 4.3 (3.5-5.1) mmol/L Chloride 97 L (98-107) mmol/L Carbon Dioxide 25 (22-30) mmol/L Anion Gap 15.8 H (5-15) MEQ/L BUN 19 (9-20) mg/dL Creatinine 1.44 H (0.66-1.25) mg/dL Estimated GFR 51.7 ML/MIN Glucose 477 H (74-106) mg/dL Lactic Acid (0.4-2.0) Calcium 9.0 (8.4-10.2) mg/dL Total Bilirubin 0.70 (0.2-1.3) mg/dL AST 20 (17-59) U/L ALT 17 (0-50) U/L Alkaline Phosphatase 109 (38-126) U/L Creatine Kinase 265 H (55-170) U/L Troponin I (0.000-0.034) ng/mL NT-Pro-B Natriuret Pep 574 (0-900) pg/mL Serum Total Protein 8.5 H (6.3-8.2) g/dL Albumin 3.6 (3.5-5.0) g/dL Amylase 48 (30-110) U/L Lipase 61 (23-300) U/L Urine Color (YELLOW) Urine Appearance (CLEAR) Urine pH (5-6) Ur Specific [place] (1.005-1.025) Urine Protein (Negative) Urine Ketones (NEGATIVE) Urine Blood (0-5) [place]/ul Urine Nitrite (NEGATIVE) Urine Bilirubin (NEGATIVE) Urine Urobilinogen (0-1) mg/dL Ur Leukocyte Esterase (NEGATIVE) Urine WBC (Auto) (0-5) /HPF Urine RBC (Auto) (0-2) /HPF U Epithel Cells (Auto) (FEW) /HPF Urine Bacteria (Auto) (NEGATIVE) /HPF Urine Mucus (Auto) (NEGATIVE) /HPF Urine Culture Reflexed (NO) Urine Glucose (NEGATIVE) mg/dL - Progress Progress: improved Progress Note: 12/13/18 20:14 Patient was started on IV saline bolus, and lactic acid was ordered ( 4.1), given Tylenol, chest X ray revealed LLL infiltrate, he was started on IV Rocephin and Zithromax, and O2 nasally, awaiting Ct abdomen result, Dr Pereira called, discussed our findings, and agreed to admit him to telemetry with Pneumonia, diarrhea, hyperglycemia, he was given 10 units of Inrulin IV. Discussed with : Kelli Will see patient in: hospital (full admit) Counseled pt/family regarding: lab results, diagnosis, need for follow-up, rad results - Departure Departure Disposition: In-patient Admission Clinical Impression: Pneumonia Qualifiers: Pneumonia type: due to unspecified organism Laterality: left Lung location: lower lobe of lung Qualified Code(s): J18.1 - Lobar pneumonia, unspecified organism Condition: Stable Critical Care Time: No Referrals: LIZET PEREIRA [Primary Care Provider] - Instructions: Pneumonia, Adult (DC)
[2018-12-13 16:26] LABS: Lactic Acid 4.1 (0.4-2.0)
[2018-12-13 16:26] LABS: INR 1.25 (0.8-3.0); PROTIME 14.2 SECONDS (8.83-12.87)
[2018-12-13] MEDS ORDERED: TYLENOL EXTRA STRENGTH 500 MG PO STA (16:26)
[2018-12-13 16:28] LABS: PTT 33.1 SECONDS (24.1-36.1)
[2018-12-13] MEDS ORDERED: Sodium Chloride 0.9% 1000 ML 1,000 ML IV STA (16:36)
[2018-12-13] MEDS ORDERED: TYLENOL EXTRA STRENGTH 500 MG ONE ×2 (16:38)
[2018-12-13 16:39] LABS: ALBUMIN 3.6 g/dL (3.5-5.0); ANION GAP 15.8 MEQ/L (5-15); BILIRUBIN,TOTAL 0.7 mg/dL (0.2-1.3); Creatinine 1 1.44 mg/dL (0.66-1.25); Potassium 4.3 mmol/L (3.5-5.1); Total Protein 8.5 g/dL (6.3-8.2)
--- NOTE | 2018-12-13 16:58 | XRAY ---
Exam: AP upright portable chest film (2 images) from 12/13/2018. Comparison: AP upright portable chest film from 06/09/2018. Indication: 68-year-old male with weakness for 3 days, abdominal pain, history of open heart surgery, previous smoker. Findings: The patient is mildly rotated toward the left on both AP portable radiographs. The heart size is within normal limits. Surgical clips and midline sternal wires are seen consistent with prior CABG. A left-sided cardiac pacemaker is seen with [address], one lead tip in the projection of the right atrium and the other lead tip in the projection of the apex of the right ventricle. The luisa appear unremarkable. The lungs are adequately inflated. There is minimal elevation of the right hemidiaphragm. Some mild hazy airspace disease is seen within the peripheral left lower lung field. This is new from 06/09/2018 and may reflect pneumonia. The remainder of the lung timmons appears clear. No central vascular congestion or pulmonary vascular redistribution to the upper lung timmons is seen. No lateral pleural effusions or pneumothorax is seen. No acute osseous process is seen. Impression: 1. The patient is mildly rotated toward the left on both portable radiographs. However, there appears to be some new mild airspace disease within the peripheral left lower lung field which could be due to pneumonia. Correlate clinically. 2. No other acute cardiopulmonary disease is seen. 3. Status post CABG and left-sided cardiac pacemaker, as described above.
[2018-12-13 18:04] LABS: Appearance SLIGHTLY CLOUDY (CLEAR); Bilirubin NEGATIVE (NEGATIVE); Blood MODERATE Ery/ul (0-5); Glucose >=500 mg/dL (NEGATIVE); Ketones TRACE (NEGATIVE); Leukocyte Esterase NEGATIVE (NEGATIVE); Mucus SLIGHT /HPF (NEGATIVE); Nitrite NEGATIVE (NEGATIVE); Protein,Urine Dip 30 (Negative); RBC 0-2 /HPF (0-2); Specific Gravity 1.033 (1.005-1.025); Urobilinogen NEGATIVE mg/dL (0-1); WBC 0-2 /HPF (0-5)
[2018-12-13] MEDS ORDERED: KEPPRA 500 MG PO ONE (18:26)
[2018-12-13] MEDS ORDERED: NovoLIN R IV ONE (19:03)
[2018-12-13] MEDS ORDERED: ROCEPHIN 1 Gm-D5w 50 ml Bag** 1 G/50 ML IVPB IV STA (19:11)
[2018-12-13] MEDS ORDERED: Zithromax 500 MG/ 250 ML NaCl Premix 500 MG/250 ML IVPB IV STA (19:12)
[2018-12-13] MEDS ORDERED: NovoLIN R ONE (19:16)
[2018-12-13] MEDS ORDERED: Zithromax 500 MG/ 250 ML NaCl Premix 500 MG/250 ML IVPB IV ONE (19:17)
[2018-12-13] MEDS ORDERED: ROCEPHIN 1 Gm-D5w 50 ml Bag** 1 G/50 ML IVPB IV ONE (19:17)
[2018-12-13 19:33] LABS: A-aADO2 81; ABG HEMOGLOBIN 12.1; ABG POTASSIUM 3.7 (3.5-5.1); ABG SITE LEFT RADIAL; ALLEN TEST OK? YES; ARTERIAL BLD GAS O2 SATURATION 98.8 % (95-100); ARTERIAL BLOOD GAS BASE EXCESS 2.1 (-2.0-2.0); ARTERIAL BLOOD GAS FIO2 32 %; ARTERIAL BLOOD GAS PCO2 44 mmHg (35-45); ARTERIAL BLOOD GAS PO2 92 mmHg (75-100); CARBOXYHEMOGLOBIN 2.3 % THgb (0.0-6.9); HCO3- 27.3 (22-28); HGB O2 SAT 95.2 g/dF (94-100); Methhemoglobin 1.3 % (1.4-1.5); paO2 pAO1 0.53
[2018-12-13] MEDS ORDERED: DUONEB 0.5-3 MG/3 ml Neb IH PRN (20:20)
[2018-12-13] MEDS ORDERED: Zofran 4 MG/2 ML VIAL IV PRN (20:20)
[2018-12-13] MEDS: Flomax 0.4 MG PO SCH (22:42)
[2018-12-13] MEDS: Reglan 10 MG PO SCH (22:42)
[2018-12-13] MEDS: Coreg 6.25 MG PO SCH (22:42)
[2018-12-13] MEDS: DESYREL 50 MG PO SCH (22:42)
[2018-12-14] MEDS: Sodium Chloride 0.9% 1000 ML 1,000 ML IV SCH ×4 (02:43→20:46)
[2018-12-14] MEDS: TYLENOL 325 MG PO PRN ×2 (03:07→20:49)
[2018-12-14 04:40] LABS: BASOPHIL % 0.2 % (0.0-0.4); Basophil (Absolute #) 0.01 (0-0.4); Eosinophil % 0.5 % (0.00-5.0); Eosinophil (Absolute #) 0.03 (0-0.5); Granulocyte Absolute (ANC) 5.28 (1.4-6.9); Granulocytes % 81.4 % (36.0-66.0); Hematocrit 37.3 % (42-50); Hemoglobin 11.7 gm/dl (12.5-18.0); Lymphocyte (Absolute #) 0.75 (1.0-4.6); Lymphocytes % 11.6 % (24.0-44.0); Mean Cell Volume 90.3 fl (78-100); Mean Corpuscular Hemoglobin 28.3 pg (26-32); Mean Corpuscular Hgb Concent. 31.4 g/dl (32-36); Mean Platelet Volume 10.9 fl (6-9.5); Monocyte (Absolute #) 0.41 (0.0-1.3); Monocytes % 6.3 % (0.0-12.0); Platelet Count 175 K/mm3 (150-450); Red Blood Count 4.13 M/mm3 (4.1-5.6); Red Cell Distribution Width 14.1 % (11.5-14.0); White Blood Count 6.5 K/mm3 (4.0-10.5)
[2018-12-14 04:46] LABS: ANION GAP 12.5 MEQ/L (5-15); BLOOD UREA NITROGEN 15 mg/dL (9-20); CHLORIDE 103 mmol/L (98-107); Calcium 7.9 mg/dL (8.4-10.2); Carbon Dioxide 26 mmol/L (22-30); Creatinine 1 1.03 mg/dL (0.66-1.25); Glucose 291 mg/dL (74-106); Potassium 4.3 mmol/L (3.5-5.1); SODIUM 137 mmol/L (137-145)
[2018-12-14 08:22] LABS: 027 TOX PROD PRESUMPTIVE NEGATIVE (NEGATIVE); TOXIGENIC C. DIFF ORG NEGATIVE (NEGATIVE)
--- NOTE | 2018-12-14 09:08 | PCM.HP ---
History of Present Illness - Chief Complaint Chief Complaint: Pneumonia History of Present Illness: is a 68 year old male pt of mine from [facility] with dementia, COPD, anxiety, DM who was brought to ER yesterday after having several days of diarrhea. Also fell 3d ago at home. He has been very weak. He was found to have LLL pneumonia and hyperglycemia (BS 477). He was given IV rocephin and zithromax and admitted. He has been having 6/10 L sided chest pain prior to admission. Afebrile at home although he was sweaty. In the ER his temp was 101.8. WBC 6.5 this morning. LA was 4.1 initially, then became normal after 2L of fluids. - Review of Systems Constitutional: Fever Respiratory: Cough Cardiac: Chest Pain Abdominal/Gastrointestinal: Abdominal Pain (none now), Diarrhea Genitourinary Symptoms: Urinary Retention (chronic) Musculoskeletal: Arthralgias, Back Pain Neurological: Dizziness (chornic) Psychological: Anxiety, Emotional Lability All Other Systems: Reviewed and Negative Medications & Allergies Home Medications: Home Medication List Amlodipine Besylate [Norvasc] 10 mg PO DAILY 06/09/18 [History Confirmed ] Carvedilol 6.25 mg [Coreg 6.25 MG] 6.25 mg PO BID 06/09/18 [History Confirmed 12/13/18] Clopidogrel Bisulfate 75 mg [PLAVIX 75 MG Tablet] 75 mg PO DAILY 06/09/18 [History Confirmed 12/13/18] Metoclopramide HCl 10 mg [Reglan 10 MG] 10 mg PO DAILY 06/09/18 [History Confirmed 12/13/18] Omeprazole Magnesium [Prilosec Otc] 20 mg PO DAILY 06/09/18 [History Confirmed 12/13/18] Tamsulosin HCl 0.4 mg [Flomax 0.4 MG] 0.4 mg PO BID 06/09/18 [History Confirmed 12/13/18] Trazodone HCl 50 mg [Desyrel 50 mg] 50 mg PO BID 06/09/18 [History Confirmed 12/13/18] Valsartan [Diovan] 320 mg PO DAILY 06/09/18 [History Confirmed 12/13/18] Aspirin EC 81 mg [Ecotrin 81 mg] 81 mg PO DAILY 12/13/18 [History Confirmed 12/13/18] Allergies/Adverse Reactions: Allergies Allergy/AdvReac Type Severity Reaction Status Date / Time Penicillins Allergy Intermediate Verified 12/13/18 16:00 [id number] Reductase Allergy Verified 12/13/18 16:00 Inhibitor - Past Medical History Past Medical History: Yes Neurological History: Dementia, Migraines, Stroke ENT History: No Pertinent History Cardiac History: Angina, Arrhythmia, Coronary Artery Disease, High Cholesterol, Hypertension, Myocardial Infarction ([place]), Peripheral Vascular Disease, Other Respiratory History: Bronchitis Endocrine Medical History: No Pertinent History Musculoskelatal History: Arthritis GI Medical History: GERD, Irritable Bowel History: No Pertinent History Pyscho-Social History: No Pertinent History Male Reproductive Disorders: Prostate Problems Comment: recent pacemaker placement in September 2018 - Past Surgical History Past Surgical History: Yes Neuro Surgical History: No Pertinent History Cardiac History: CABG, Cardiac Catheterization, Cardiac Stent, Pacemaker, Vascular Surgery, Other Respiratory Surgery: No Pertinent History GI Surgical History: Cholecystectomy Genitourinary Surgical Hx: No Pertinent History Musculskeletal Surgical Hx: No Pertinent History Male Surgical History: No Pertinent History Other Surgical History: arterial surgery in both legs; right carotid surgery in last 10 years; left carotid surgery in August 2018- now 100% blocked after surgery - Social History Smoking Status: Former smoker How long have you smoked: 50+years Exposure to second hand smoke: No Alcohol: None Drug Use: none - Physical Exam Vital Signs: Vital Signs - 24 hr Temp Pulse Resp BP Pulse Ox 12/14/18 07:30 98.6 F 86 18 157/73 90 L 12/14/18 07:22 94 L 12/14/18 04:00 99.4 F 77 23 172/79 96 12/14/18 00:00 100.7 F 86 32 H 173/78 96 12/13/18 22:55 98.9 F 86 18 174/80 96 12/13/18 22:33 96 12/13/18 22:32 86 24 96 12/13/18 20:25 92 L 12/13/18 19:05 99.9 F 12/13/18 18:51 65 16 129/68 95 12/13/18 17:45 78 18 138/68 95 12/13/18 16:59 81 28 H 108/48 92 L 12/13/18 16:04 101.8 F 83 18 117/82 92 L Oxygen-Last 24 hours O2 Percentage 4 Liters = 36% O2 Percentage 4 Liters = 36% O2 Percentage 4 Liters = 36% O2 Percentage 3 Liters = 32% O2 Percentage 2 Liters = 28% O2 Percentage 2 Liters = 28% General Appearance: no apparent distress, anxiety, other (appears acutely ill) Neurologic Exam: cooperative, other (oriented to place and to November 2018, not day ) Eye Exam: eyes nml inspection Ears, Nose, Throat Exam: moist mucous membranes Neck Exam: normal inspection, non-tender, No lymphadenopathy Respiratory Exam: normal breath sounds, lungs clear, No crackles/rales, No rhonchi, No wheezing Cardiovascular Exam: regular rate/rhythm, normal heart sounds, No murmur Gastrointestinal/Abdomen Exam: soft, normal bowel sounds, tenderness (suprapubic , LLQ, RLQ) Back Exam: normal inspection, No rash Extremity Exam: normal inspection, No pedal edema, No swelling Skin Exam: normal color, warm, dry, No rash Results - Labs Lab/Micro Results: Accuchecks Date 12/13/18 Time 22:00 Accucheck Value: 213 Lab Results-Last 24 Hours 12/13/18 12/13/18 12/13/18 Range/Units 16:10 16:10 16:10 WBC 7.7 (4.0-10.5) K/mm3 RBC 4.56 (4.1-5.6) M/mm3 Hgb 13.1 (12.5-18.0) gm/dl Hct 40.5 L (42-50) % MCV 88.8 (78-100) fl MCH 28.7 (26-32) pg MCHC 32.3 (32-36) g/dl RDW 14.0 (11.5-14.0) % Plt Count 229 (150-450) K/mm3 MPV 11.7 H (6-9.5) fl Gran % 82.2 H (36.0-66.0) % Eos # (Auto) 0.01 (0-0.5) Absolute Lymphs (auto) 0.85 L (1.0-4.6) Absolute Monos (auto) 0.51 (0.0-1.3) Lymphocytes % 11.0 L (24.0-44.0) % Monocytes % 6.6 (0.0-12.0) % Eosinophils % 0.1 (0.00-5.0) % Basophils % 0.1 (0.0-0.4) % Absolute Granulocytes 6.35 (1.4-6.9) Basophils # 0.01 (0-0.4) PT 14.2 H (8.83-12.87) SECONDS INR 1.25 (0.8-3.0) APTT 33.1 (24.1-36.1) SECONDS Puncture Site pCO2 (35-45) mmHg pO2 (75-100) mmHg Base Excess (-2.0-2.0) O2 Saturation (94-100) g/dF ABG pH (7.35-7.45) ABG HCO3 (22-28) ABG O2 Sat (Measured) (95-100) % Obdulio Test A-a Gradient a/A Ratio Hemoglobin Carboxyhemoglobin (0.0-6.9) % THgb Methemoglobin (1.4-1.5) % Temperature C POC O2 Flow Rate % Sodium 134 L (137-145) mmol/L Potassium 4.3 (3.5-5.1) mmol/L Chloride 97 L (98-107) mmol/L Carbon Dioxide 25 (22-30) mmol/L Anion Gap 15.8 H (5-15) MEQ/L BUN 19 (9-20) mg/dL Creatinine 1.44 H (0.66-1.25) mg/dL Estimated GFR 51.7 ML/MIN Glucose 477 H (74-106) mg/dL Hemoglobin A1c (4.5-6.0) % Lactic Acid (0.4-2.0) Calcium 9.0 (8.4-10.2) mg/dL Total Bilirubin 0.70 (0.2-1.3) mg/dL AST 20 (17-59) U/L ALT 17 (0-50) U/L Alkaline Phosphatase 109 (38-126) U/L Creatine Kinase 265 H (55-170) U/L Troponin I (0.000-0.034) ng/mL NT-Pro-B Natriuret Pep 574 (0-900) pg/mL Serum Total Protein 8.5 H (6.3-8.2) g/dL Albumin 3.6 (3.5-5.0) g/dL Amylase 48 (30-110) U/L Lipase 61 (23-300) U/L Urine Color (YELLOW) Urine Appearance (CLEAR) Urine pH (5-6) Ur Specific [place] (1.005-1.025) Urine Protein (Negative) Urine Ketones (NEGATIVE) Urine Blood (0-5) [place]/ul Urine Nitrite (NEGATIVE) Urine Bilirubin (NEGATIVE) Urine Urobilinogen (0-1) mg/dL Ur Leukocyte Esterase (NEGATIVE) Urine WBC (Auto) (0-5) /HPF Urine RBC (Auto) (0-2) /HPF U Epithel Cells (Auto) (FEW) /HPF Urine Bacteria (Auto) (NEGATIVE) /HPF Urine Mucus (Auto) (NEGATIVE) /HPF Urine Culture Reflexed (NO) Urine Glucose (NEGATIVE) mg/dL Stool Occult Blood (Negative) C. difficile Screen (NEGATIVE) C.difficile 027-NAP1-B1 (NEGATIVE) 12/13/18 12/13/18 12/13/18 Range/Units 16:10 16:18 17:30 WBC (4.0-10.5) K/mm3 RBC (4.1-5.6) M/mm3 Hgb (12.5-18.0) gm/dl Hct (42-50) % MCV (78-100) fl MCH (26-32) pg MCHC (32-36) g/dl RDW (11.5-14.0) % Plt Count (150-450) K/mm3 MPV (6-9.5) fl Gran % (36.0-66.0) % Eos # (Auto) (0-0.5) Absolute Lymphs (auto) (1.0-4.6) Absolute Monos (auto) (0.0-1.3) Lymphocytes % (24.0-44.0) % Monocytes % (0.0-12.0) % Eosinophils % (0.00-5.0) % Basophils % (0.0-0.4) % Absolute Granulocytes (1.4-6.9) Basophils # (0-0.4) PT (8.83-12.87) SECONDS INR (0.8-3.0) APTT (24.1-36.1) SECONDS Puncture Site pCO2 (35-45) mmHg pO2 (75-100) mmHg Base Excess (-2.0-2.0) O2 Saturation (94-100) g/dF ABG pH (7.35-7.45) ABG HCO3 (22-28) ABG O2 Sat (Measured) (95-100) % Obdulio Test A-a Gradient a/A Ratio Hemoglobin Carboxyhemoglobin (0.0-6.9) % THgb Methemoglobin (1.4-1.5) % Temperature C POC O2 Flow Rate % Sodium (137-145) mmol/L Potassium (3.5-5.1) mmol/L Chloride (98-107) mmol/L Carbon Dioxide (22-30) mmol/L Anion Gap (5-15) MEQ/L BUN (9-20) mg/dL Creatinine (0.66-1.25) mg/dL Estimated GFR ML/MIN Glucose (74-106) mg/dL Hemoglobin A1c (4.5-6.0) % Lactic Acid 4.1 H (0.4-2.0) Calcium (8.4-10.2) mg/dL Total Bilirubin (0.2-1.3) mg/dL AST (17-59) U/L ALT (0-50) U/L Alkaline Phosphatase (38-126) U/L Creatine Kinase (55-170) U/L Troponin I 0.015 (0.000-0.034) ng/mL NT-Pro-B Natriuret Pep (0-900) pg/mL Serum Total Protein (6.3-8.2) g/dL Albumin (3.5-5.0) g/dL Amylase (30-110) U/L Lipase (23-300) U/L Urine Color YELLOW (YELLOW) Urine Appearance SLIGHTLY CLOUDY (CLEAR) Urine pH 5.0 (5-6) Ur Specific [place] 1.033 (1.005-1.025) Urine Protein 30 (Negative) Urine Ketones TRACE (NEGATIVE) Urine Blood MODERATE (0-5) [place]/ul Urine Nitrite NEGATIVE (NEGATIVE) Urine Bilirubin NEGATIVE (NEGATIVE) Urine Urobilinogen NEGATIVE (0-1) mg/dL Ur Leukocyte Esterase NEGATIVE (NEGATIVE) Urine WBC (Auto) 0-2 (0-5) /HPF Urine RBC (Auto) 0-2 (0-2) /HPF U Epithel Cells (Auto) NONE (FEW) /HPF Urine Bacteria (Auto) NONE (NEGATIVE) /HPF Urine Mucus (Auto) SLIGHT (NEGATIVE) /HPF Urine Culture Reflexed NO (NO) Urine Glucose >=500 (NEGATIVE) mg/dL Stool Occult Blood (Negative) C. difficile Screen (NEGATIVE) C.difficile 027-NAP1-B1 (NEGATIVE) 12/13/18 12/13/18 12/13/18 Range/Units 19:10 19:27 19:27 WBC (4.0-10.5) K/mm3 RBC (4.1-5.6) M/mm3 Hgb (12.5-18.0) gm/dl Hct (42-50) % MCV (78-100) fl MCH (26-32) pg MCHC (32-36) g/dl RDW (11.5-14.0) % Plt Count (150-450) K/mm3 MPV (6-9.5) fl Gran % (36.0-66.0) % Eos # (Auto) (0-0.5) Absolute Lymphs (auto) (1.0-4.6) Absolute Monos (auto) (0.0-1.3) Lymphocytes % (24.0-44.0) % Monocytes % (0.0-12.0) % Eosinophils % (0.00-5.0) % Basophils % (0.0-0.4) % Absolute Granulocytes (1.4-6.9) Basophils # (0-0.4) PT (8.83-12.87) SECONDS INR (0.8-3.0) APTT (24.1-36.1) SECONDS Puncture Site LEFT RADIAL pCO2 44 (35-45) mmHg pO2 92 (75-100) mmHg Base Excess 2.1 H (-2.0-2.0) O2 Saturation 95.2 (94-100) g/dF ABG pH 7.40 (7.35-7.45) ABG HCO3 27.3 (22-28) ABG O2 Sat (Measured) 98.8 (95-100) % Obdulio Test YES A-a Gradient 81 a/A Ratio 0.53 Hemoglobin 12.1 Carboxyhemoglobin 2.3 (0.0-6.9) % THgb Methemoglobin 1.3 L (1.4-1.5) % Temperature 37.0 C POC O2 Flow Rate 32 % Sodium (137-145) mmol/L Potassium 3.7 (3.5-5.1) mmol/L Chloride (98-107) mmol/L Carbon Dioxide (22-30) mmol/L Anion Gap (5-15) MEQ/L BUN (9-20) mg/dL Creatinine (0.66-1.25) mg/dL Estimated GFR ML/MIN Glucose (74-106) mg/dL Hemoglobin A1c (4.5-6.0) % Lactic Acid 1.4 (0.4-2.0) Calcium (8.4-10.2) mg/dL Total Bilirubin (0.2-1.3) mg/dL AST (17-59) U/L ALT (0-50) U/L Alkaline Phosphatase (38-126) U/L Creatine Kinase (55-170) U/L Troponin I 0.013 (0.000-0.034) ng/mL NT-Pro-B Natriuret Pep (0-900) pg/mL Serum Total Protein (6.3-8.2) g/dL Albumin (3.5-5.0) g/dL Amylase (30-110) U/L Lipase (23-300) U/L Urine Color (YELLOW) Urine Appearance (CLEAR) Urine pH (5-6) Ur Specific [place] (1.005-1.025) Urine Protein (Negative) Urine Ketones (NEGATIVE) Urine Blood (0-5) [place]/ul Urine Nitrite (NEGATIVE) Urine Bilirubin (NEGATIVE) Urine Urobilinogen (0-1) mg/dL Ur Leukocyte Esterase (NEGATIVE) Urine WBC (Auto) (0-5) /HPF Urine RBC (Auto) (0-2) /HPF U Epithel Cells (Auto) (FEW) /HPF Urine Bacteria (Auto) (NEGATIVE) /HPF Urine Mucus (Auto) (NEGATIVE) /HPF Urine Culture Reflexed (NO) Urine Glucose (NEGATIVE) mg/dL Stool Occult Blood (Negative) C. difficile Screen (NEGATIVE) C.difficile 027-NAP1-B1 (NEGATIVE) 12/13/18 12/14/18 12/14/18 Range/Units 20:40 01:20 04:25 WBC (4.0-10.5) K/mm3 RBC (4.1-5.6) M/mm3 Hgb (12.5-18.0) gm/dl Hct (42-50) % MCV (78-100) fl MCH (26-32) pg MCHC (32-36) g/dl RDW (11.5-14.0) % Plt Count (150-450) K/mm3 MPV (6-9.5) fl Gran % (36.0-66.0) % Eos # (Auto) (0-0.5) Absolute Lymphs (auto) (1.0-4.6) Absolute Monos (auto) (0.0-1.3) Lymphocytes % (24.0-44.0) % Monocytes % (0.0-12.0) % Eosinophils % (0.00-5.0) % Basophils % (0.0-0.4) % Absolute Granulocytes (1.4-6.9) Basophils # (0-0.4) PT (8.83-12.87) SECONDS INR (0.8-3.0) APTT (24.1-36.1) SECONDS Puncture Site pCO2 (35-45) mmHg pO2 (75-100) mmHg Base Excess (-2.0-2.0) O2 Saturation (94-100) g/dF ABG pH (7.35-7.45) ABG HCO3 (22-28) ABG O2 Sat (Measured) (95-100) % Obdulio Test A-a Gradient a/A Ratio Hemoglobin Carboxyhemoglobin (0.0-6.9) % THgb Methemoglobin (1.4-1.5) % Temperature C POC O2 Flow Rate % Sodium (137-145) mmol/L Potassium (3.5-5.1) mmol/L Chloride (98-107) mmol/L Carbon Dioxide (22-30) mmol/L Anion Gap (5-15) MEQ/L BUN (9-20) mg/dL Creatinine (0.66-1.25) mg/dL Estimated GFR ML/MIN Glucose (74-106) mg/dL Hemoglobin A1c (4.5-6.0) % Lactic Acid (0.4-2.0) Calcium (8.4-10.2) mg/dL Total Bilirubin (0.2-1.3) mg/dL AST (17-59) U/L ALT (0-50) U/L Alkaline Phosphatase (38-126) U/L Creatine Kinase (55-170) U/L Troponin I < 0.012 < 0.012 < 0.012 (0.000-0.034) ng/mL NT-Pro-B Natriuret Pep (0-900) pg/mL Serum Total Protein (6.3-8.2) g/dL Albumin (3.5-5.0) g/dL Amylase (30-110) U/L Lipase (23-300) U/L Urine Color (YELLOW) Urine Appearance (CLEAR) Urine pH (5-6) Ur Specific [place] (1.005-1.025) Urine Protein (Negative) Urine Ketones (NEGATIVE) Urine Blood (0-5) [place]/ul Urine Nitrite (NEGATIVE) Urine Bilirubin (NEGATIVE) Urine Urobilinogen (0-1) mg/dL Ur Leukocyte Esterase (NEGATIVE) Urine WBC (Auto) (0-5) /HPF Urine RBC (Auto) (0-2) /HPF U Epithel Cells (Auto) (FEW) /HPF Urine Bacteria (Auto) (NEGATIVE) /HPF Urine Mucus (Auto) (NEGATIVE) /HPF Urine Culture Reflexed (NO) Urine Glucose (NEGATIVE) mg/dL Stool Occult Blood (Negative) C. difficile Screen (NEGATIVE) C.difficile 027-NAP1-B1 (NEGATIVE) 12/14/18 12/14/18 12/14/18 Range/Units 04:25 04:25 04:25 WBC 6.5 (4.0-10.5) K/mm3 RBC 4.13 (4.1-5.6) M/mm3 Hgb 11.7 L (12.5-18.0) gm/dl Hct 37.3 L (42-50) % MCV 90.3 (78-100) fl MCH 28.3 (26-32) pg MCHC 31.4 L (32-36) g/dl RDW 14.1 H (11.5-14.0) % Plt Count 175 (150-450) K/mm3 MPV 10.9 H (6-9.5) fl Gran % 81.4 H (36.0-66.0) % Eos # (Auto) 0.03 (0-0.5) Absolute Lymphs (auto) 0.75 L (1.0-4.6) Absolute Monos (auto) 0.41 (0.0-1.3) Lymphocytes % 11.6 L (24.0-44.0) % Monocytes % 6.3 (0.0-12.0) % Eosinophils % 0.5 (0.00-5.0) % Basophils % 0.2 (0.0-0.4) % Absolute Granulocytes 5.28 (1.4-6.9) Basophils # 0.01 (0-0.4) PT (8.83-12.87) SECONDS INR (0.8-3.0) APTT (24.1-36.1) SECONDS Puncture Site pCO2 (35-45) mmHg pO2 (75-100) mmHg Base Excess (-2.0-2.0) O2 Saturation (94-100) g/dF ABG pH (7.35-7.45) ABG HCO3 (22-28) ABG O2 Sat (Measured) (95-100) % Obdulio Test A-a Gradient a/A Ratio Hemoglobin Carboxyhemoglobin (0.0-6.9) % THgb Methemoglobin (1.4-1.5) % Temperature C POC O2 Flow Rate % Sodium 137 (137-145) mmol/L Potassium 4.3 (3.5-5.1) mmol/L Chloride 103 (98-107) mmol/L Carbon Dioxide 26 (22-30) mmol/L Anion Gap 12.5 (5-15) MEQ/L BUN 15 (9-20) mg/dL Creatinine 1.03 (0.66-1.25) mg/dL Estimated GFR > 60.0 ML/MIN Glucose 291 H (74-106) mg/dL Hemoglobin A1c 8.95 H (4.5-6.0) % Lactic Acid (0.4-2.0) Calcium 7.9 L (8.4-10.2) mg/dL Total Bilirubin (0.2-1.3) mg/dL AST (17-59) U/L ALT (0-50) U/L Alkaline Phosphatase (38-126) U/L Creatine Kinase (55-170) U/L Troponin I (0.000-0.034) ng/mL NT-Pro-B Natriuret Pep (0-900) pg/mL Serum Total Protein (6.3-8.2) g/dL Albumin (3.5-5.0) g/dL Amylase (30-110) U/L Lipase (23-300) U/L Urine Color (YELLOW) Urine Appearance (CLEAR) Urine pH (5-6) Ur Specific [place] (1.005-1.025) Urine Protein (Negative) Urine Ketones (NEGATIVE) Urine Blood (0-5) [place]/ul Urine Nitrite (NEGATIVE) Urine Bilirubin (NEGATIVE) Urine Urobilinogen (0-1) mg/dL Ur Leukocyte Esterase (NEGATIVE) Urine WBC (Auto) (0-5) /HPF Urine RBC (Auto) (0-2) /HPF U Epithel Cells (Auto) (FEW) /HPF Urine Bacteria (Auto) (NEGATIVE) /HPF Urine Mucus (Auto) (NEGATIVE) /HPF Urine Culture Reflexed (NO) Urine Glucose (NEGATIVE) mg/dL Stool Occult Blood (Negative) C. difficile Screen (NEGATIVE) C.difficile 027-NAP1-B1 (NEGATIVE) 12/14/18 12/14/18 Range/Units 06:40 07:40 WBC (4.0-10.5) K/mm3 RBC (4.1-5.6) M/mm3 Hgb (12.5-18.0) gm/dl Hct (42-50) % MCV (78-100) fl MCH (26-32) pg MCHC (32-36) g/dl RDW (11.5-14.0) % Plt Count (150-450) K/mm3 MPV (6-9.5) fl Gran % (36.0-66.0) % Eos # (Auto) (0-0.5) Absolute Lymphs (auto) (1.0-4.6) Absolute Monos (auto) (0.0-1.3) Lymphocytes % (24.0-44.0) % Monocytes % (0.0-12.0) % Eosinophils % (0.00-5.0) % Basophils % (0.0-0.4) % Absolute Granulocytes (1.4-6.9) Basophils # (0-0.4) PT (8.83-12.87) SECONDS INR (0.8-3.0) APTT (24.1-36.1) SECONDS Puncture Site pCO2 (35-45) mmHg pO2 (75-100) mmHg Base Excess (-2.0-2.0) O2 Saturation (94-100) g/dF ABG pH (7.35-7.45) ABG HCO3 (22-28) ABG O2 Sat (Measured) (95-100) % Obdulio Test A-a Gradient a/A Ratio Hemoglobin Carboxyhemoglobin (0.0-6.9) % THgb Methemoglobin (1.4-1.5) % Temperature C POC O2 Flow Rate % Sodium (137-145) mmol/L Potassium (3.5-5.1) mmol/L Chloride (98-107) mmol/L Carbon Dioxide (22-30) mmol/L Anion Gap (5-15) MEQ/L BUN (9-20) mg/dL Creatinine (0.66-1.25) mg/dL Estimated GFR ML/MIN Glucose (74-106) mg/dL Hemoglobin A1c (4.5-6.0) % Lactic Acid (0.4-2.0) Calcium (8.4-10.2) mg/dL Total Bilirubin (0.2-1.3) mg/dL AST (17-59) U/L ALT (0-50) U/L Alkaline Phosphatase (38-126) U/L Creatine Kinase (55-170) U/L Troponin I (0.000-0.034) ng/mL NT-Pro-B Natriuret Pep (0-900) pg/mL Serum Total Protein (6.3-8.2) g/dL Albumin (3.5-5.0) g/dL Amylase (30-110) U/L Lipase (23-300) U/L Urine Color (YELLOW) Urine Appearance (CLEAR) Urine pH (5-6) Ur Specific [place] (1.005-1.025) Urine Protein (Negative) Urine Ketones (NEGATIVE) Urine Blood (0-5) [place]/ul Urine Nitrite (NEGATIVE) Urine Bilirubin (NEGATIVE) Urine Urobilinogen (0-1) mg/dL Ur Leukocyte Esterase (NEGATIVE) Urine WBC (Auto) (0-5) /HPF Urine RBC (Auto) (0-2) /HPF U Epithel Cells (Auto) (FEW) /HPF Urine Bacteria (Auto) (NEGATIVE) /HPF Urine Mucus (Auto) (NEGATIVE) /HPF Urine Culture Reflexed (NO) Urine Glucose (NEGATIVE) mg/dL Stool Occult Blood NEGATIVE (Negative) C. difficile Screen NEGATIVE (NEGATIVE) C.difficile 027-NAP1-B1 PRESUMPTIVE NEGATIVE (NEGATIVE) Accuchecks Date 12/13/18 Time 22:00 Accucheck Value: 213 - Radiology Impressions Radiology Exams & Impressions: Radiology Procedures Category Date Time Status ABDOMEN AND PELVIS W/0 CONTRAS [CT] Stat Exams 12/13/18 17:53 Taken CHEST 1 VIEW (PORTABLE) Stat Exams 12/13/18 16:11 Completed - Other Procedures and Tests Respiratory Therapy 12/13/18 20:20 Oxygen Nasal Cannula 2 lpm Assessment/Plan (1) Pneumonia Current Visit: Yes Status: Acute Qualifiers: Pneumonia type: due to unspecified organism Laterality: left Lung location: lower lobe of lung Qualified Code(s): J18.1 - Lobar pneumonia, unspecified organism Assessment & Plan: On IV rocephin and zithromax day #2. I anticipate he will need several days in the hospital. will need PT. May well need LTCF stay for rehab. Discharge planning will have to discuss with and with pt; he will be resistant. Code(s): J18.9 - PNEUMONIA, UNSPECIFIED ORGANISM (2) Weakness Current Visit: Yes Status: Acute Code(s): R53.1 - WEAKNESS (3) Hyperglycemia Current Visit: Yes Status: Acute Code(s): R73.9 - HYPERGLYCEMIA, UNSPECIFIED (4) Diabetes mellitus Current Visit: Yes Status: Acute Code(s): E11.9 - TYPE 2 DIABETES MELLITUS WITHOUT COMPLICATIONS (5) Diarrhea Current Visit: Yes Status: Acute Code(s): R19.7 - DIARRHEA, UNSPECIFIED (6) Frequent falls Current Visit: Yes Status: Acute Code(s): R29.6 - REPEATED FALLS (7) Chest pain Current Visit: No Status: Acute Code(s): R07.9 - CHEST PAIN, UNSPECIFIED
[2018-12-14] MEDS: Flomax 0.4 MG PO SCH ×2 (10:06→21:04)
[2018-12-14] MEDS: DESYREL 50 MG PO SCH ×2 (10:06→21:04)
[2018-12-14] MEDS: Coreg 6.25 MG PO SCH ×2 (10:06→21:04)
--- NOTE | 2018-12-14 10:12 | XRAY ---
Exam: CT of the abdomen and pelvis without IV contrast from 12/13/2018. CTDI: 23.68 Comparison: CT of the abdomen and pelvis without and with IV contrast from 11/02/2014. Indication: 68-year-old male with abdominal pain and weakness, diarrhea, history of prior heart surgery and cholecystectomy. Technique: Non-IV contrast axial images were obtained through the abdomen and pelvis. Reconstructed coronal and sagittal images were created and reviewed. Findings: Patchy airspace disease is seen within the anterior lateral aspect of the left lower lobe. This is suggestive of left lower lobe pneumonia. A small calcified granuloma is seen at the posterior medial left lung base as well. No posterior pleural fluid is seen. I see findings consistent with prior CABG and midline sternotomy. There is equivocal evidence of a minimal hiatal hernia. The liver appears towards the upper limits of normal in size. Assessment of the solid organs is limited without the use of IV contrast,, but no gross liver mass is seen. Surgical clips consistent with prior cholecystectomy are seen. The spleen appears borderline enlarged measuring 13.6 cm in greatest length. A few scattered calcified granulomas are seen within the spleen. The pancreas appears unremarkable. The right adrenal gland appears unremarkable. A small stable adrenal adenoma measuring -0.5 Hounsfield units is seen at the inferior margin of the left adrenal gland, the nodule measuring about 2.2 cm x 1.2 cm in cross section on axial image #36. I again see a 4.2 cm round cyst within the lower pole of the left kidney measuring +8.8 Hounsfield units. This is slightly larger than that seen on 11/02/2014 when it measured about 3.4 cm in diameter. Some mild arteriosclerotic calcifications are seen within the intrarenal arteries. No renal calculi, hydronephrosis, or other definite renal mass is seen. Moderate atherosclerotic vascular calcifications are seen throughout the abdominal aorta and its branches. I see some surgical clips at the level of both proximal femoral arteries. Correlate with prior surgical history. No abdominal aortic aneurysm or abnormal retroperitoneal lymphadenopathy is seen. Abundant intraperitoneal fat is seen. No free intraperineal air is seen. Minimal protrusion of intra-abdominal fat into the subcutaneous fat is seen at the level of the umbilicus on midline sagittal image #128. No ventral bowel containing hernia is seen. A small amount of contrast is seen within the right lower quadrant which may relate to medication. I see no findings of appendicitis. No bowel distention or obstruction is seen. Mild proximal sigmoid colon diverticulosis without evidence of diverticulitis is seen. No other pelvic mass or enlarged pelvic lymph nodes are seen. No free intraperitoneal fluid is seen. The urinary bladder is only mildly distended. The seminal vesicles and prostate gland appear unremarkable. The skeleton reveals no acute fracture or other aggressive bone lesion. Mild degenerative changes are seen throughout the visualized lower thoracolumbar spine. Impression: 1. There is airspace infiltrate within left lower lobe consistent with left lower lobe pneumonia. 2. Stable findings are seen within the abdomen and pelvis consisting of prior cholecystectomy, equivocal evidence of a minimal hiatal hernia, borderline splenomegaly, 4 cm cyst within lower pole of the left kidney, mild diverticulosis of the proximal sigmoid colon without diverticulitis, and moderate arteriosclerotic vascular calcifications within the abdominal aorta and its branches. No other acute process is seen within the abdomen and pelvis.
[2018-12-14] MEDS: PLAVIX 75 MG Tablet PO SCH (11:55)
[2018-12-14] MEDS: DIOVAN 80 MG PO SCH (11:56)
[2018-12-14] MEDS: ECOTRIN 81 MG PO SCH (11:56)
[2018-12-14] MEDS: Protonix 40MG Tablet PO SCH (11:56)
[2018-12-14] MEDS: NORVASC 5 MG PO SCH (11:57)
[2018-12-14] MEDS: NovoLOG Insulin SQ PRN ×3 (11:57→21:04)
[2018-12-14] MEDS ORDERED: APRESOLINE 20 MG/ML INJ IV ONE (17:08)
[2018-12-14] MEDS: ROCEPHIN 1 Gm-D5w 50 ml Bag** 1 G/50 ML IVPB IV SCH (19:55)
[2018-12-14] MEDS: Zithromax 500 MG/ 250 ML NaCl Premix 500 MG/250 ML IVPB IV SCH (21:03)
[2018-12-14] MEDS: Reglan 10 MG PO SCH (21:04)
[2018-12-15] MEDS: NovoLOG Insulin SQ PRN ×4 (08:11→22:21)
--- NOTE | 2018-12-15 09:10 | PCM.NOTE ---
Date and Time: 12/15/18905 Subjective Assessment: Last night pt had some disorientation but was redirected by his and does remember part of the episode (was urinating on the floor trying to get his IV out). He has been having abd pain and chronically has arthritis pain and would like a stronger medicine than Tylenol. At home was on percocet in the past. He has been taking his bp meds at home regularly. says bp are labile at home. Still having watery diarrhea. PT found pt to have "stiff ankles" and recommended therapy for that. - Review of Systems Constitutional: No Fever Abdominal/Gastrointestinal: Diarrhea, Appetite Changes Objective Exam General Appearance: no apparent distress, alert, other (does appear ill) Neurologic Exam: oriented x 3, cooperative Skin Exam: normal color, warm, dry, No rash Respiratory Exam: normal breath sounds, lungs clear, No crackles/rales, No rhonchi, No wheezing Cardiovascular Exam: regular rate/rhythm, normal heart sounds, No murmur Gastrointestinal/Abdomen Exam: soft, normal bowel sounds, tenderness (LLQ, suprapubic, RLQ), No distention, No mass, No guarding, No rebound Extremity Exam: normal inspection, No pedal edema, No swelling Back Exam: normal inspection, No rash OBJECTIVE DATA Vital Signs: Vital Signs - 24 hr Temp Pulse Resp BP Pulse Ox 12/15/18 07:34 94 L 12/15/18 07:29 98.1 F 89 20 159/70 96 12/15/18 06:57 95 12/15/18 04:15 99.2 F 78 18 144/77 97 12/15/18 00:12 98.9 F 75 21 147/65 91 L 12/14/18 22:48 96 12/14/18 20:05 99.7 F 80 24 156/70 97 12/14/18 16:00 99.3 F 76 17 183/79 94 L 12/14/18 12:00 99.1 F 83 16 190/81 90 L Oxygen-Last 24 hours O2 Percentage 4 Liters = 36% O2 Percentage 4 Liters = 36% O2 Percentage 4 Liters = 36% O2 Percentage 4 Liters = 36% Pain Assessment - Last Documented Pain Intensity 8 Pain Scale Used 0-10 Pain Scale Intake and Output: Intake & Output 12/12/18 12/13/18 12/14/18 07/24/19 11:59 11:59 11:59 11:59 Intake Total 480 3865 Output Total 550 400 Balance -70 3465 Weight 117.5 kg Lab Results: Accuchecks Date 12/15/18 Date 12/14/18 Date 12/14/18 Time 08:16 Time 16:30 Time 11:30 Accucheck Value: 223 Accucheck Value: 216 Accucheck Value: 219 Accucheck Value: 329 Lab Results-Last 24 Hours 12/14/18 Range/Units Unknown Stool Lactoferrin Positive H (Negative) Radiology Exams: Radiology Procedures Category Date Time Status ABDOMEN AND PELVIS W/0 CONTRAS [CT] Stat Exams 12/13/18 17:53 Completed CHEST 1 VIEW (PORTABLE) Stat Exams 12/13/18 16:11 Completed Multi-Disciplinary Progress Notes: Multi-Disciplinary Progress Notes 12/14/18 11:52 Case Management Note by Johana Chamorro TALKED WITH PT'S AND LAY CAREGIVER, TERELL AT BEDSIDE WITH PT. SHE ISN'T SURE WHAT DC NEEDS SHE WANTS FOR PATIENT AT THIS TIME. WILL DISCUSS AGAIN TOMORROW. Initialized on 12/14/18 11:52 - END OF NOTE 12/14/18 10:15 Case Management Note by Kaylynn Bundy spoke with pt about cc coord and handout given. Initialized on 12/14/18 10:15 - END OF NOTE Assessment/Plan (1) Pneumonia Current Visit: Yes Status: Acute Qualifiers: Pneumonia type: due to unspecified organism Laterality: left Lung location: lower lobe of lung Qualified Code(s): J18.1 - Lobar pneumonia, unspecified organism Assessment & Plan: Without real improvement. He is on IV antbiotics and must remain on them for the next 2-3d at least, until he starts to show significant improvement. Code(s): J18.9 - PNEUMONIA, UNSPECIFIED ORGANISM (2) Diarrhea Current Visit: Yes Status: Acute Qualifiers: Diarrhea type: unspecified type Qualified Code(s): R19.7 - Diarrhea, unspecified Assessment & Plan: Not improved. C. diff neg, hemoccult neg, but lactoferring positive. Will order GI pathogen panel today. Code(s): R19.7 - DIARRHEA, UNSPECIFIED (3) Weakness Current Visit: Yes Status: Acute Assessment & Plan: Needs PT Code(s): R53.1 - WEAKNESS (4) Hyperglycemia Current Visit: Yes Status: Chronic Code(s): R73.9 - HYPERGLYCEMIA, UNSPECIFIED (5) Diabetes mellitus Current Visit: Yes Status: Acute Qualifiers: Diabetes mellitus type: type 2 Diabetes mellitus buttermilk drier operator insulin use: without buttermilk drier operator use Diabetes mellitus complication status: with hyperglycemia Qualified Code(s): E11.65 - Type 2 diabetes mellitus with hyperglycemia Code(s): E11.9 - TYPE 2 DIABETES MELLITUS WITHOUT COMPLICATIONS (6) Frequent falls Current Visit: Yes Status: Acute Code(s): R29.6 - REPEATED FALLS (7) Chest pain Current Visit: No Status: Resolved Qualifiers: Chest pain type: unspecified Qualified Code(s): R07.9 - Chest pain, unspecified Code(s): R07.9 - CHEST PAIN, UNSPECIFIED
[2018-12-15] MEDS ORDERED: VALSARTAN 320 MG PO SCH (10:00)
[2018-12-15] MEDS ORDERED: NON-FORMULARY ITEM (Omeprazole Magnesium [Prilosec Otc] 20 MG) PO SCH (10:00)
[2018-12-15] MEDS: PLAVIX 75 MG Tablet PO SCH (11:07)
[2018-12-15] MEDS: ECOTRIN 81 MG PO SCH (11:07)
[2018-12-15] MEDS: DESYREL 50 MG PO SCH ×2 (11:07→22:21)
[2018-12-15] MEDS: NORVASC 5 MG PO SCH (11:08)
[2018-12-15] MEDS: Coreg 6.25 MG PO SCH ×2 (11:08→22:21)
[2018-12-15] MEDS: DIOVAN 80 MG PO SCH (11:08)
[2018-12-15] MEDS: Flomax 0.4 MG PO SCH ×2 (11:08→22:21)
[2018-12-15] MEDS: Protonix 40MG Tablet PO SCH (11:08)
[2018-12-15] MEDS: PERCOCET TABLET 5/325MG PO PRN ×2 (11:11→17:22)
[2018-12-15] MEDS: Sodium Chloride 0.9% 1000 ML 1,000 ML IV SCH (13:02)
[2018-12-15 19:33] LABS: Adenovirus F 40/41 NEGATIVE (NEGATIVE); Astrovirus NEGATIVE (NEGATIVE); C. Difficile Organism NEGATIVE (NEGATIVE); Campylobacter NEGATIVE (NEGATIVE); Cryptosporidium NEGATIVE (NEGATIVE); Cyclospora cayentanensis NEGATIVE (NEGATIVE); Entamoeaba histolytica NEGATIVE (NEGATIVE); Enteroaggregative E.coli NEGATIVE (NEGATIVE); Enteropathogenic E.coli NEGATIVE (NEGATIVE); Enterotoxigenic E.coli NEGATIVE (NEGATIVE); Giardia lamblia NEGATIVE (NEGATIVE); Norovirus GI/GII NEGATIVE (NEGATIVE); Plesiomonas shigelloides NEGATIVE (NEGATIVE); Rotavirus A NEGATIVE (NEGATIVE); Salmonella NEGATIVE (NEGATIVE); Sapovirus NEGATIVE (NEGATIVE); Shiga-like toxin prod.E.coli NEGATIVE (NEGATIVE); Vibrio NEGATIVE (NEGATIVE); Vibrio cholerae NEGATIVE (NEGATIVE); Yersinia enterocolitica NEGATIVE (NEGATIVE)
[2018-12-15] MEDS: ROCEPHIN 1 Gm-D5w 50 ml Bag** 1 G/50 ML IVPB IV SCH (20:32)
[2018-12-15] MEDS: Zithromax 500 MG/ 250 ML NaCl Premix 500 MG/250 ML IVPB IV SCH (22:20)
[2018-12-15] MEDS: Reglan 10 MG PO SCH (22:20)
[2018-12-16] MEDS: Sodium Chloride 0.9% 1000 ML 1,000 ML IV SCH (06:04)
[2018-12-16] MEDS: PERCOCET TABLET 5/325MG PO PRN ×3 (07:02→20:34)
[2018-12-16] MEDS: NovoLOG Insulin SQ PRN ×4 (07:57→22:23)
--- NOTE | 2018-12-16 08:49 | PCM.NOTE ---
Date and Time: 12/16/18 0844 Subjective Assessment: Pt had temp to 100.2 last night. His sputum is less per . He has been up since 2 a.m. Not much appetite. He was up and walked into the [facility] yesterday with assistance. Still having diarrhea. - Review of Systems Constitutional: Weakness Abdominal/Gastrointestinal: Appetite Changes Objective Exam General Appearance: no apparent distress, alert Neurologic Exam: oriented x 3, cooperative (eventually; initially tells lab "no " to blood draw) Skin Exam: normal color, warm, dry, No rash Respiratory Exam: diminished breath sounds, rhonchi (LLL, faint), No crackles/ rales, No wheezing Cardiovascular Exam: regular rate/rhythm, normal heart sounds, No murmur Gastrointestinal/Abdomen Exam: soft, normal bowel sounds, tenderness (LLQ, suprapubic, RLQ) Extremity Exam: normal inspection, No pedal edema, No swelling Back Exam: normal inspection, No rash OBJECTIVE DATA Vital Signs: Vital Signs - 24 hr Temp Pulse Resp BP Pulse Ox 12/16/18 07:18 98.7 F 85 20 145/78 92 L 12/16/18 04:10 100.2 F 86 18 169/72 91 L 12/16/18 00:05 98.9 F 86 20 148/68 92 L 12/15/18 20:16 92 L 12/15/18 20:10 100.2 F 83 20 150/65 93 L 12/15/18 16:47 98 F 78 20 146/70 93 L 12/15/18 12:39 98.2 F 86 20 160/84 95 12/15/18 10:56 95 Oxygen-Last 24 hours O2 Percentage 2 Liters = 28% O2 Percentage 2 Liters = 28% Pain Assessment - Last Documented Pain Intensity 7 Pain Scale Used 0-10 Pain Scale Intake and Output: Intake & Output 12/13/18 12/14/18 12/15/18 12/16/18 11:59 11:59 11:59 11:59 Intake Total 480 4225 1926 Output Total 550 400 Balance -70 8425 6 Weight 117.5 kg Lab Results: Accuchecks Date 12/15/18 Date 12/15/18 Time 16:30 Time 11:45 Accucheck Value: 245 Accucheck Value: 221 Accucheck Value: 181 Accucheck Value: 216 Lab Results-Last 24 Hours 12/15/18 Range/Units 16:45 Stl C. cayetanensis PCR NEGATIVE (NEGATIVE) Stl Adenov F 40/41 PCR NEGATIVE (NEGATIVE) Stool Astrovirus (PCR) NEGATIVE (NEGATIVE) Stool Cryptosporidium PCR NEGATIVE (NEGATIVE) Stool EPEC (PCR) NEGATIVE (NEGATIVE) Stool EAEC (PCR) NEGATIVE (NEGATIVE) Stl E. histolytica PCR NEGATIVE (NEGATIVE) Stl P. shigelloides PCR NEGATIVE (NEGATIVE) Stool Sapovirus (PCR) NEGATIVE (NEGATIVE) St Y.enterocolitica PCR NEGATIVE (NEGATIVE) Stool Vibrio (PCR) NEGATIVE (NEGATIVE) Stl Vibrio cholerae PCR NEGATIVE (NEGATIVE) Stl Norovirus GI/GII PCR NEGATIVE (NEGATIVE) Campylobacter (PCR) NEGATIVE (NEGATIVE) C. difficile (PCR) NEGATIVE (NEGATIVE) Enterotoxigenic E. coli NEGATIVE (NEGATIVE) E.coli Shiga Toxins NEGATIVE (NEGATIVE) Giardia lamblia NEGATIVE (NEGATIVE) Rotavirus A (PCR) NEGATIVE (NEGATIVE) Salmonella (PCR) NEGATIVE (NEGATIVE) Shigella (PCR) NEGATIVE (NEGATIVE) Multi-Disciplinary Progress Notes: Multi-Disciplinary Progress Notes 12/15/18 16:58 Physical Therapy Note by Sowmya Lyles PT. REPORTS HE "DIDN'T WANT TO WALK." REFUSED PT X2 BEFORE FINALLY PARTICIPATING. PT. PERFORMED SIT TO STAND W/ CGA. STILL TRIES TO RAISE ARM IN ATTEMPT TO GET SOMEONE TO PULL HIM OUT OF THE CHAIR THIS IS HIS HABIT W/ SPOUSE AT HOME. PT. AMBULATED 100' W/ ROLLER WALKER W/ CGA. NO INSTABILITY NOTED. NO DYSPNEA. SPOUSE REPORTS THEY ARE CONSIDERING SWINGBED PROGRAM, BUT FEEL PT. WILL HAVE TO BE AWARE THAT HE HAS TO PARTICIPATE IN P.T. TO HELP MAINTAIN SKILLED STATUS. SOWMYA LYLES, PT Initialized on 12/15/18 16:58 - END OF NOTE Assessment/Plan (1) Pneumonia Current Visit: Yes Status: Acute Qualifiers: Pneumonia type: due to unspecified organism Laterality: left Lung location: lower lobe of lung Qualified Code(s): J18.1 - Lobar pneumonia, unspecified organism Assessment & Plan: Still having some elevated temp. Change rocephin and zithromax (today is day #3 ) to levaquin. Code(s): J18.9 - PNEUMONIA, UNSPECIFIED ORGANISM (2) Diarrhea Current Visit: Yes Status: Acute Qualifiers: Diarrhea type: unspecified type Qualified Code(s): R19.7 - Diarrhea, unspecified Assessment & Plan: GI panel negative. Only positive result was the lactoferrin. Discussed adding steroid for inflammtion; however this has caused urinary retention for him in the past, so will avoid. Consider starting asacol. Code(s): R19.7 - DIARRHEA, UNSPECIFIED (3) Weakness Current Visit: Yes Status: Acute Assessment & Plan: some improvement. Pt will likely need a swing bed, may be able to start tomorrow or this weekend. Code(s): R53.1 - WEAKNESS (4) Hyperglycemia Current Visit: Yes Status: Chronic Code(s): R73.9 - HYPERGLYCEMIA, UNSPECIFIED (5) Diabetes mellitus Current Visit: Yes Status: Acute Qualifiers: Diabetes mellitus type: type 2 Diabetes mellitus long-term insulin use: without long term acute care registered nurse use Diabetes mellitus complication status: with hyperglycemia Qualified Code(s): E11.65 - Type 2 diabetes mellitus with hyperglycemia Code(s): E11.9 - TYPE 2 DIABETES MELLITUS WITHOUT COMPLICATIONS (6) Frequent falls Current Visit: Yes Status: Chronic Code(s): R29.6 - REPEATED FALLS (7) Insomnia Current Visit: Yes Status: Acute Qualifiers: Insomnia type: unspecified Qualified Code(s): G47.00 - Insomnia, unspecified Assessment & Plan: discussed adding BZD at hs,but concerned about increased risk of falls so deferring for now. Code(s): G47.00 - INSOMNIA, UNSPECIFIED
[2018-12-16 09:02] LABS: Hematocrit 37.8 % (42-50); Mean Cell Volume 90.4 fl (78-100); Mean Corpuscular Hemoglobin 28.7 pg (26-32); Mean Corpuscular Hgb Concent. 31.7 g/dl (32-36); Mean Platelet Volume 11.3 fl (6-9.5); Platelet Count 208 K/mm3 (150-450); Red Blood Count 4.18 M/mm3 (4.1-5.6); Red Cell Distribution Width 14.1 % (11.5-14.0); White Blood Count 4.5 K/mm3 (4.0-10.5)
[2018-12-16] MEDS: ENOXAPARIN SODIUM SQ SCH (09:48)
[2018-12-16] MEDS: Levofloxacin 500MG/100ML D5W 500 MG/100 ML BAG IV SCH (09:49)
[2018-12-16] MEDS: PLAVIX 75 MG Tablet PO SCH (09:50)
[2018-12-16] MEDS: ECOTRIN 81 MG PO SCH (09:50)
[2018-12-16] MEDS: Protonix 40MG Tablet PO SCH (09:50)
[2018-12-16] MEDS: Flomax 0.4 MG PO SCH ×2 (09:51→22:23)
[2018-12-16] MEDS: DESYREL 50 MG PO SCH ×2 (09:51→22:23)
[2018-12-16] MEDS: Coreg 6.25 MG PO SCH ×2 (09:51→20:34)
[2018-12-16] MEDS: NORVASC 5 MG PO SCH (09:54)
[2018-12-16] MEDS: DIOVAN 80 MG PO SCH (09:54)
[2018-12-16 10:44] LABS: ANION GAP 12.8 MEQ/L (5-15); BLOOD UREA NITROGEN 11 mg/dL (9-20); CHLORIDE 100 mmol/L (98-107); Carbon Dioxide 27 mmol/L (22-30); Creatinine 1 0.96 mg/dL (0.66-1.25); Glucose 259 mg/dL (74-106); Potassium 3.8 mmol/L (3.5-5.1); SODIUM 137 mmol/L (137-145)
[2018-12-16 13:10] LABS: BAND 2 % (0.0-2.0); Lymphocytes 25 % (24-44); Monocyte 3 % (0.0-12.0); Neutrophils 70 % (36.-66.); Total Cells Counted 100
[2018-12-16 13:11] LABS: Platelet Estimate NORMAL (NORMAL)
[2018-12-16] MEDS: Reglan 10 MG PO SCH (22:23)
[2018-12-16] MEDS: TYLENOL 325 MG PO PRN (23:54)
[2018-12-17] MEDS ORDERED: APRESOLINE 20 MG/ML INJ IV ONE (04:43)
[2018-12-17] MEDS ORDERED: Nitrostat 0.4 MG Tablet SL ONE (06:14)
[2018-12-17] MEDS: Nitrostat 0.4 MG Tablet SL PRN ×3 (06:15→06:30)
[2018-12-17] MEDS: NovoLOG Insulin SQ PRN ×4 (08:05→21:50)
[2018-12-17] MEDS: PERCOCET TABLET 5/325MG PO PRN ×3 (08:51→20:04)
[2018-12-17] MEDS: COREG 12.5 MG PO SCH ×2 (10:25→21:50)
[2018-12-17] MEDS: ENOXAPARIN SODIUM SQ SCH (10:25)
[2018-12-17] MEDS: Protonix 40MG Tablet PO SCH (10:26)
[2018-12-17] MEDS: DIOVAN 80 MG PO SCH (10:27)
[2018-12-17] MEDS: ECOTRIN 81 MG PO SCH (10:28)
[2018-12-17] MEDS: DESYREL 50 MG PO SCH ×2 (10:28→21:50)
[2018-12-17] MEDS: PLAVIX 75 MG Tablet PO SCH (10:28)
[2018-12-17] MEDS: NORVASC 5 MG PO SCH (10:29)
[2018-12-17] MEDS: Flomax 0.4 MG PO SCH ×2 (10:29→21:50)
[2018-12-17] MEDS: Levofloxacin 500MG/100ML D5W 500 MG/100 ML BAG IV SCH (10:30)
[2018-12-17] MEDS: Reglan 10 MG PO SCH (21:50)
[2018-12-17] MEDS: Sodium Chloride 0.9% 10 ML FLUSH Syringe IV SCH (21:50)
[2018-12-18] MEDS: PERCOCET TABLET 5/325MG PO PRN ×4 (02:12→19:35)
[2018-12-18] MEDS: Sodium Chloride 0.9% 10 ML FLUSH Syringe IV SCH ×2 (04:55→21:30)
[2018-12-18 06:28] LABS: BASOPHIL % 0.3 % (0.0-0.4); Basophil (Absolute #) 0.01 (0-0.4); Eosinophil % 4.1 % (0.00-5.0); Eosinophil (Absolute #) 0.16 (0-0.5); Granulocyte Absolute (ANC) 2.51 (1.4-6.9); Granulocytes % 64.5 % (36.0-66.0); Hematocrit 39.5 % (42-50); Hemoglobin 12.6 gm/dl (12.5-18.0); Lymphocyte (Absolute #) 0.95 (1.0-4.6); Lymphocytes % 24.4 % (24.0-44.0); Mean Corpuscular Hemoglobin 28.4 pg (26-32); Mean Corpuscular Hgb Concent. 31.9 g/dl (32-36); Mean Platelet Volume 10.8 fl (6-9.5); Monocyte (Absolute #) 0.26 (0.0-1.3); Monocytes % 6.7 % (0.0-12.0); Platelet Count 256 K/mm3 (150-450); Red Blood Count 4.44 M/mm3 (4.1-5.6); Red Cell Distribution Width 14.3 % (11.5-14.0); White Blood Count 3.9 K/mm3 (4.0-10.5)
[2018-12-18 06:41] LABS: ANION GAP 10.2 MEQ/L (5-15); BLOOD UREA NITROGEN 9 mg/dL (9-20); CHLORIDE 100 mmol/L (98-107); Calcium 8.5 mg/dL (8.4-10.2); Carbon Dioxide 30 mmol/L (22-30); Creatinine 1 1.01 mg/dL (0.66-1.25); Glucose 245 mg/dL (74-106); Potassium 3.5 mmol/L (3.5-5.1); SODIUM 137 mmol/L (137-145)
[2018-12-18] MEDS: NovoLOG Insulin SQ PRN ×3 (08:16→21:31)
[2018-12-18] MEDS: Levofloxacin 500MG/100ML D5W 500 MG/100 ML BAG IV SCH (09:19)
[2018-12-18] MEDS: PLAVIX 75 MG Tablet PO SCH (09:19)
[2018-12-18] MEDS: Protonix 40MG Tablet PO SCH (09:19)
[2018-12-18] MEDS: ENOXAPARIN SODIUM SQ SCH (09:20)
[2018-12-18] MEDS: Flomax 0.4 MG PO SCH ×2 (09:20→21:29)
[2018-12-18] MEDS: DESYREL 50 MG PO SCH ×2 (09:20→21:29)
[2018-12-18] MEDS: COREG 12.5 MG PO SCH ×2 (09:20→21:29)
[2018-12-18] MEDS: ECOTRIN 81 MG PO SCH (09:20)
[2018-12-18] MEDS: NORVASC 5 MG PO SCH (09:20)
[2018-12-18] MEDS: DIOVAN 80 MG PO SCH (09:20)
--- NOTE | 2018-12-18 11:53 | PCM.NOTE ---
Date and Time: 12/18/18 1151 Subjective Assessment: doing little better - Review of Systems Constitutional: No Fever, No Chills Eyes: No Symptoms Ears, Nose, & Throat: No Symptoms Respiratory: Cough, Orthopnea, Short Of Breath Cardiac: No Chest Pain, No Edema, No Syncope Abdominal/Gastrointestinal: No Abdominal Pain, No Nausea, No Vomiting, No Diarrhea Genitourinary Symptoms: No Dysuria Musculoskeletal: No Back Pain, No Neck Pain Skin: No Rash Neurological: No Dizziness, No Focal Weakness, No Sensory Changes Psychological: No Symptoms Endocrine: No Symptoms Hematologic/Lymphatic: No Symptoms Immunological/Allergic: No Symptoms Objective Exam General Appearance: alert Neurologic Exam: alert, oriented x 3, cooperative, normal mood/affect, nml cerebellar function, sensation nml, No motor deficits Skin Exam: normal color, warm, dry Eye Exam: PERRL, EOMI, eyes nml inspection Ears, Nose, Throat Exam: normal ENT inspection, pharynx normal, moist mucous membranes Neck Exam: normal inspection, non-tender, supple, full range of motion Respiratory Exam: crackles/rales, rhonchi, wheezing, No respiratory distress Cardiovascular Exam: regular rate/rhythm, normal heart sounds Gastrointestinal/Abdomen Exam: soft, No tenderness, No mass Extremity Exam: normal inspection, normal range of motion Back Exam: normal inspection, normal range of motion, No CVA tenderness, No vertebral tenderness Male Genitalia Exam: deferred Rectal Exam: deferred OBJECTIVE DATA Vital Signs: Vital Signs - 24 hr Temp Pulse Resp BP Pulse Ox 12/18/18 07:16 97.8 F 89 20 135/80 97 12/18/18 04:00 99.1 F 83 18 186/80 91 L 12/18/18 00:00 98.5 F 79 19 168/82 94 L 12/17/18 20:00 99.2 F 82 18 178/88 94 L 12/17/18 19:42 91 L 12/17/18 16:00 98.8 F 77 18 154/70 90 L 12/17/18 12:00 99.1 F 73 18 176/89 90 L Pain Assessment - Last Documented Pain Intensity 7 Pain Scale Used 0-10 Pain Scale Intake and Output: Intake & Output 12/15/18 12/16/18 12/17/18 12/18/18 11:59 11:59 11:59 11:59 Intake Total 7328 8293 1780 1890 Output Total 400 825 741 2308 Balance 3825 1986 1080 89 Weight 117.5 kg Lab Results: Accuchecks Date 12/18/18 Date 12/17/18 Time 07:30 Time 22:00 Accucheck Value: 229 Accucheck Value: 156 Accucheck Value: 156 Lab Results-Last 24 Hours 12/17/18 12/17/18 12/17/18 Range/Units 12:38 15:30 18:37 WBC (4.0-10.5) K/mm3 RBC (4.1-5.6) M/mm3 Hgb (12.5-18.0) gm/dl Hct (42-50) % MCV (78-100) fl MCH (26-32) pg MCHC (32-36) g/dl RDW (11.5-14.0) % Plt Count (150-450) K/mm3 MPV (6-9.5) fl Gran % (36.0-66.0) % Eos # (Auto) (0-0.5) Absolute Lymphs (auto) (1.0-4.6) Absolute Monos (auto) (0.0-1.3) Lymphocytes % (24.0-44.0) % Monocytes % (0.0-12.0) % Eosinophils % (0.00-5.0) % Basophils % (0.0-0.4) % Absolute Granulocytes (1.4-6.9) Basophils # (0-0.4) Sodium (137-145) mmol/L Potassium (3.5-5.1) mmol/L Chloride (98-107) mmol/L Carbon Dioxide (22-30) mmol/L Anion Gap (5-15) MEQ/L BUN (9-20) mg/dL Creatinine (0.66-1.25) mg/dL Estimated GFR ML/MIN Glucose (74-106) mg/dL Calcium (8.4-10.2) mg/dL Troponin I < 0.012 < 0.012 < 0.012 (0.000-0.034) ng/mL 12/18/18 12/18/18 Range/Units 05:40 05:40 WBC 3.9 L (4.0-10.5) K/mm3 RBC 4.44 (4.1-5.6) M/mm3 Hgb 12.6 (12.5-18.0) gm/dl Hct 39.5 L (42-50) % MCV 89.0 (78-100) fl MCH 28.4 (26-32) pg MCHC 31.9 L (32-36) g/dl RDW 14.3 H (11.5-14.0) % Plt Count 256 (150-450) K/mm3 MPV 10.8 H (6-9.5) fl Gran % 64.5 (36.0-66.0) % Eos # (Auto) 0.16 (0-0.5) Absolute Lymphs (auto) 0.95 L (1.0-4.6) Absolute Monos (auto) 0.26 (0.0-1.3) Lymphocytes % 24.4 (24.0-44.0) % Monocytes % 6.7 (0.0-12.0) % Eosinophils % 4.1 (0.00-5.0) % Basophils % 0.3 (0.0-0.4) % Absolute Granulocytes 2.51 (1.4-6.9) Basophils # 0.01 (0-0.4) Sodium 137 (137-145) mmol/L Potassium 3.5 (3.5-5.1) mmol/L Chloride 100 (98-107) mmol/L Carbon Dioxide 30 (22-30) mmol/L Anion Gap 10.2 (5-15) MEQ/L BUN 9 (9-20) mg/dL Creatinine 1.01 (0.66-1.25) mg/dL Estimated GFR > 60.0 ML/MIN Glucose 245 H (74-106) mg/dL Calcium 8.5 (8.4-10.2) mg/dL Troponin I (0.000-0.034) ng/mL Multi-Disciplinary Progress Notes: Multi-Disciplinary Progress Notes 12/17/18 15:59 Physical Therapy Note by Sowmya Llyes PT. REPORTS SOME C/O CP THIS AM BUT CHECKED W/ NSG AND TROPONINS HAVE BEEN -. PT. REPORTS W/ BOTH RXS TODAY THAT HE FEELS WORSE AFTER HE WALKS, AND HE " DOESN 'T WANT TO TO USE THE ROLLER WALKER." ADVISED PT. THAT THIS IS THE SAFEST WAY FOR HIM TO WALK AT THIS TIME. PT. AMBULATED ~ 75' X 2 TODAY AND PERFORMED LE EX' S IN CHAIR X 10 REPS. O2 SATS WERE 89-90% ON ROOM AIR AFTER WALK. NO C/O CP W / PM RX. PT. MOVED TO RM 115 D/T FALL RISK. CHAIR ALARM IN PLACE. PLAN IS TO SWING ON MON 12/20/18. SOWMYA LYLES, PT Initialized on 12/17/18 15:59 - END OF NOTE Assessment/Plan (1) Pneumonia Current Visit: Yes Status: Acute Qualifiers: Pneumonia type: due to unspecified organism Laterality: left Lung location: lower lobe of lung Qualified Code(s): J18.1 - Lobar pneumonia, unspecified organism Assessment & Plan: Last Vital Signs Temp 97.8 F 12/18/18 07:16 Pulse 89 12/18/18 07:16 Resp 20 12/18/18 07:16 BP 135/80 12/18/18 07:16 Pulse Ox 97 12/18/18 07:16 Allergies Penicillins Allergy (Intermediate, Verified 12/13/18 16:00) [id number] Reductase Inhibitor Allergy (Verified 12/13/18 16:00) Active Medications Acetaminophen (Tylenol 325 Mg) 650 mg PO Q4H PRN PRN PRN Reason: PAIN AND/OR FEVER Stop: 01/12/19 20:19 Last Admin: 12/16/18 23:54 Dose: 650 mg Amlodipine Besylate (Norvasc 5 Mg) 10 mg PO DAILY [facility] Stop: 01/13/19 10:59 Last Admin: 12/18/18 09:20 Dose: 10 mg Aspirin (Ecotrin 81 Mg) 81 mg PO DAILY [facility] Stop: 01/13/19 10:59 Last Admin: 12/18/18 09:20 Dose: 81 mg Carvedilol (Coreg 12.5 Mg) 12.5 mg PO BID [facility] Stop: 01/16/19 09:59 Last Admin: 12/18/18 09:20 Dose: 12.5 mg Clopidogrel Bisulfate (Plavix 75 Mg Tablet) 75 mg PO DAILY [facility] Stop: 01/13/19 10:44 Last Admin: 12/18/18 09:19 Dose: 75 mg Enoxaparin Sodium (Enoxaparin Sodium) 40 mg SQ DAILY [facility] Stop: 01/15/19 09:59 Last Admin: 12/18/18 09:20 Dose: 40 mg Levofloxacin/Dextrose (Levofloxacin 500mg/100ml D5w) 500 mg in 100 mls @ 100 mls/hr IV Q24H10 [facility] Stop: 01/15/19 09:59 Last Admin: 12/18/18 09:19 Dose: 100 mls/hr Insulin Aspart (Novolog Insulin) 0 unit SQ UD PRN PRN Reason: HYPERGLYCEMIA Stop: 01/12/19 20:19 Last Admin: 12/18/18 08:16 Dose: 5 unit Metoclopramide HCl (Reglan 10 Mg) 10 mg PO HS [facility] Stop: 01/12/19 21:59 Last Admin: 12/17/18 21:50 Dose: 10 mg Nitroglycerin (Nitrostat 0.4 Mg Tablet) 0.4 mg SL Q5MIN PRN MR X 3 PRN PRN Reason: CHEST PAIN Stop: 01/16/19 06:13 Last Admin: 12/17/18 06:30 Dose: 0.4 mg Ondansetron HCl (Zofran 4 Mg/2 Ml Vial) 4 mg IV Q6H PRN PRN PRN Reason: NAUSEA/VOMITING Stop: 01/12/19 20:19 Oxycodone/Acetaminophen (Percocet Tablet 5/325mg) 1 tab PO QIDP PRN PRN Reason: PAIN Stop: 12/20/18 09:10 Last Admin: 12/18/18 08:22 Dose: 1 tab Pantoprazole Sodium (Protonix 40mg Tablet) 40 mg PO DAILY [facility] Stop: 01/13/19 10:44 Last Admin: 12/18/18 09:19 Dose: 40 mg Sodium Chloride (Sodium Chloride 0.9% 10 Ml Flush Syringe) 10 ml IV Q8HT [facility] Stop: 01/16/19 13:59 Last Admin: 12/18/18 04:55 Dose: 10 ml Tamsulosin HCl (Flomax 0.4 Mg) 0.4 mg PO BID [facility] Stop: 01/12/19 21:59 Last Admin: 12/18/18 09:20 Dose: 0.4 mg Trazodone HCl (Desyrel 50 Mg) 50 mg PO BID [facility] Stop: 01/12/19 21:59 Last Admin: 12/18/18 09:20 Dose: 50 mg Valsartan (Diovan 80 Mg) 320 mg PO DAILY [facility] Stop: 01/13/19 10:59 Last Admin: 12/18/18 09:20 Dose: 320 mg Intake & Output 12/17/18 12/18/18 11:59 11:59 Intake Total 1780 1890 Output Total 700 1801 Balance 1080 89 Weight 117.5 kg Lab Tests 12/17/18 12/17/18 12/17/18 12:38 15:30 18:37 WBC RBC Hgb Hct MCV MCH MCHC RDW Plt Count MPV Gran % Eos # (Auto) Absolute Lymphs (auto) Absolute Monos (auto) Lymphocytes % Monocytes % Eosinophils % Basophils % Absolute Granulocytes Basophils # Sodium Potassium Chloride Carbon Dioxide Anion Gap BUN Creatinine Estimated GFR Glucose Calcium Troponin I < 0.012 < 0.012 < 0.012 12/18/18 12/18/18 05:40 05:40 WBC 3.9 L RBC 4.44 Hgb 12.6 Hct 39.5 L MCV 89.0 MCH 28.4 MCHC 31.9 L RDW 14.3 H Plt Count 256 MPV 10.8 H Gran % 64.5 Eos # (Auto) 0.16 Absolute Lymphs (auto) 0.95 L Absolute Monos (auto) 0.26 Lymphocytes % 24.4 Monocytes % 6.7 Eosinophils % 4.1 Basophils % 0.3 Absolute Granulocytes 2.51 Basophils # 0.01 Sodium 137 Potassium 3.5 Chloride 100 Carbon Dioxide 30 Anion Gap 10.2 BUN 9 Creatinine 1.01 Estimated GFR > 60.0 Glucose 245 H Calcium 8.5 Troponin I Code(s): J18.9 - PNEUMONIA, UNSPECIFIED ORGANISM (2) Diabetes mellitus Current Visit: Yes Status: Acute Qualifiers: Diabetes mellitus type: type 2 Diabetes mellitus longterm insulin use: without longterm use Diabetes mellitus complication status: with hyperglycemia Qualified Code(s): E11.65 - Type 2 diabetes mellitus with hyperglycemia Code(s): E11.9 - TYPE 2 DIABETES MELLITUS WITHOUT COMPLICATIONS (3) Frequent falls Current Visit: Yes Status: Chronic Code(s): R29.6 - REPEATED FALLS (4) Dysrhythmia Current Visit: No Status: Acute Qualifiers: Arrhythmia type: unspecified cardiac arrhythmia Qualified Code(s): I49.9 - Cardiac arrhythmia, unspecified Code(s): I49.9 - CARDIAC ARRHYTHMIA, UNSPECIFIED
[2018-12-18] MEDS: Reglan 10 MG PO SCH (21:29)
[2018-12-19] MEDS: PERCOCET TABLET 5/325MG PO PRN ×4 (03:13→19:38)
[2018-12-19] MEDS ORDERED: Pepto-Bismol PO PRN ×2 (07:34→13:34)
[2018-12-19] MEDS: NovoLOG Insulin SQ PRN ×3 (08:09→22:53)
[2018-12-19] MEDS: ENOXAPARIN SODIUM SQ SCH (09:22)
[2018-12-19] MEDS: DIOVAN 80 MG PO SCH (09:23)
[2018-12-19] MEDS: DESYREL 50 MG PO SCH ×2 (09:24→22:51)
[2018-12-19] MEDS: Protonix 40MG Tablet PO SCH (09:24)
[2018-12-19] MEDS: COREG 12.5 MG PO SCH ×2 (09:25→22:51)
[2018-12-19] MEDS: ECOTRIN 81 MG PO SCH (09:25)
[2018-12-19] MEDS: PLAVIX 75 MG Tablet PO SCH (09:26)
[2018-12-19] MEDS: NORVASC 5 MG PO SCH (09:26)
[2018-12-19] MEDS: Flomax 0.4 MG PO SCH ×2 (09:27→22:52)
[2018-12-19] MEDS: Sodium Chloride 0.9% 10 ML FLUSH Syringe IV SCH (10:05)
[2018-12-19] MEDS: Levofloxacin 500MG/100ML D5W 500 MG/100 ML BAG IV SCH (11:53)
[2018-12-19] MEDS: Levofloxacin 500 MG Tablet PO SCH (12:13)
--- NOTE | 2018-12-19 15:22 | PCM.NOTE ---
Date and Time: 12/19/18 1516 Subjective Assessment: Patient is sitting up in his chair. states he has been up during the night most nights ,does not sleep but he c/o fatigue "always tired". He denies SOB or cough. Is being treated for LLL pneumonia with IV Levaquin. Diarrhea has improved,had a more formed stool per nursing (per patient's ). Nursing states patient asks for pain med due to "pain all over",taking Percocet qid. Objective Exam General Appearance: no apparent distress (dark periorbital circles,skin dusky), lethargy, obese Neurologic Exam: alert, oriented x 3 Neck Exam: normal inspection Respiratory Exam: other (diminished BS mid and bases ,no ronchi,no wheeze, no rales) Gastrointestinal/Abdomen Exam: soft, other (decreased BS,tender left mid/lower ( patient reports sharp pain with palpation- states chronic) CT abd diverticulosis but no diverticulitis or other.) Extremity Exam: pedal edema (1+/4) Back Exam: other (no CVA tenderness) OBJECTIVE DATA Vital Signs: Vital Signs - 24 hr Temp Pulse Resp BP Pulse Ox 12/19/18 11:06 98.2 F 68 20 120/70 92 L 12/19/18 09:51 93 L 12/19/18 07:05 98.2 F 68 20 150/66 90 L 12/19/18 04:00 98.6 F 69 19 179/84 90 L 12/19/18 00:00 98.3 F 70 20 149/66 97 12/18/18 19:47 98.0 F 76 20 175/81 94 L 12/18/18 19:11 84 L 12/18/18 16:40 97.9 F 75 20 183/73 93 L Oxygen-Last 24 hours O2 Percentage 3 Liters = 32% Pain Assessment - Last Documented Pain Intensity 8 Pain Scale Used 0-10 Pain Scale Intake and Output: Intake & Output 12/17/18 12/18/18 12/19/18 12/20/18 11:59 11:59 11:59 11:59 Intake Total 1780 1890 1560 380 Output Total 700 1801 700 Balance 1080 89 860 380 Weight 117.5 kg Lab Results: Accuchecks Date 12/19/18 Date 12/19/18 Date 12/18/18 Date 12/18/18 Time 11:30 Time 07:30 Time 22:00 Time 16:30 Accucheck Value: 158 Accucheck Value: 229 Accucheck Value: 153 Accucheck Value: 196 Multi-Disciplinary Progress Notes: Multi-Disciplinary Progress Notes 12/18/18 17:32 Case Management Note by Caty Enciso DISCHARGE PLAN REVIEWED. PLAN IS TO SWING PATIENT ON THURSDAY, IF HE AT THAT TIME CLINICALLY QUALIFIES. WILL CONTINUE TO MONITOR. Initialized on 12/18/18 17:32 - END OF NOTE Assessment/Plan (1) Pneumonia Current Visit: Yes Status: Acute Qualifiers: Pneumonia type: due to unspecified organism Laterality: left Lung location: lower lobe of lung Qualified Code(s): J18.1 - Lobar pneumonia, unspecified organism Assessment & Plan: clinically improving -changed to oral Levaquin today (IV infiltrated and patient did not want to be "stuck again". Code(s): J18.9 - PNEUMONIA, UNSPECIFIED ORGANISM (2) Diarrhea Current Visit: Yes Status: Acute Qualifiers: Diarrhea type: unspecified type Qualified Code(s): R19.7 - Diarrhea, unspecified Assessment & Plan: Improving . Is on Reglan Q HS ,could consider holding Reglan if diarrhea worsens. Code(s): R19.7 - DIARRHEA, UNSPECIFIED (3) Hyperglycemia Current Visit: Yes Status: Chronic Assessment & Plan: A1C 8% required 18 units on SS past 24 hours.Consider Metformin but did not start due to patient having diarrhea and it could worsen the diarrhea. Code(s): R73.9 - HYPERGLYCEMIA, UNSPECIFIED (4) Insomnia Current Visit: Yes Status: Acute Assessment & Plan: consider trial Melatonin 3mg up to 6 mg q hs, will have to bring in. Code(s): G47.00 - INSOMNIA, UNSPECIFIED (5) Weakness Current Visit: Yes Status: Acute Assessment & Plan: requires rehab to improve stamina ,chronic illness. Testing TSH and B12 and overnight oximetery for chronic fatigue. Code(s): R53.1 - WEAKNESS (6) CAD (coronary artery disease) Current Visit: Yes Status: Chronic Qualifiers: Coronary Disease-Associated Artery/Lesion type: bypass graft Assessment & Plan: Patient is tolerating recent increase in Coreg .Discussed Vital Reds as a supplement.( may want to read about this online) Code(s): I25.10 - ATHSCL HEART DISEASE OF [place] CORONARY ARTERY W/O ANG PCTRS (7) Generalized pain Current Visit: Yes Status: Acute Assessment & Plan: is on Percocet. Code(s): R52 - PAIN, UNSPECIFIED (8) Left sided abdominal pain of unknown cause Current Visit: Yes Status: Chronic Assessment & Plan: CT abd was neg for etiology-is in the area where Spigelian hernia can develop. Code(s): R10.9 - UNSPECIFIED ABDOMINAL PAIN
[2018-12-19] MEDS: Reglan 10 MG PO SCH (22:52)
[2018-12-20] MEDS: PERCOCET TABLET 5/325MG PO PRN ×4 (01:18→13:56)
[2018-12-20] MEDS: Sodium Chloride 0.9% 10 ML FLUSH Syringe IV SCH (05:27)
[2018-12-20 07:49] VITALS: O2SAT 94
[2018-12-20] MEDS: NovoLOG Insulin SQ PRN ×2 (07:52→12:06)
[2018-12-20] MEDS ORDERED: Pepto-Bismol PO PRN (09:10)
[2018-12-20] MEDS: ECOTRIN 81 MG PO SCH (09:50)
[2018-12-20] MEDS: Protonix 40MG Tablet PO SCH (09:50)
[2018-12-20] MEDS: Flomax 0.4 MG PO SCH (09:50)
[2018-12-20] MEDS: COREG 12.5 MG PO SCH (09:50)
[2018-12-20] MEDS: ENOXAPARIN SODIUM SQ SCH (09:50)
[2018-12-20] MEDS: Levofloxacin 500 MG Tablet PO SCH (09:50)
[2018-12-20] MEDS: DIOVAN 80 MG PO SCH (09:50)
[2018-12-20] MEDS: PLAVIX 75 MG Tablet PO SCH (09:50)
[2018-12-20] MEDS: NORVASC 5 MG PO SCH (09:50)
[2018-12-20] MEDS: DESYREL 50 MG PO SCH (09:50)
--- NOTE | 2018-12-20 11:01 | XRAY ---
Exam: CT of the head without IV contrast from 12/20/2018. CTDI: 66.1 Comparison: CT of the head without IV contrast from 06/09/2018. Indication: 68-year-old male with hallucinations, history of pneumonia, no history of prior surgery. Technique: Non-IV contrast axial images were obtained through the brain. Reconstructed coronal and sagittal images were created and reviewed. Findings: The ventricles appear of unremarkable size and configuration. No focal mass effect or midline shift is seen. No acute intracranial bleed or abnormal extra-axial fluid collection is seen. There are again mild bilateral periventricular and subcortical white matter changes, likely due to chronic microvascular disease. I again see evidence of an old peripheral low attenuation infarct within the anterior lateral aspect of the left temporal lobe within the middle cranial fossa. No other new territorial infarct is seen. On axial image #22 and axial image #24 there is a tiny low-attenuation density at the level of the head of the caudate nucleus on each side of midline. I'm not sure whether these represent tiny lacunar infarcts or prominent perivascular spaces. However, I doubt they represent a significant change from 06/09/2018. No other new parenchymal brain abnormalities are seen. The calvarium of the skull appears intact. Minimal mucosal thickening is seen at the upper anterior margin of the right maxillary sinus representing no change. The remainder the paranasal sinuses appears clear without air-fluid levels. The mastoid air cells are well aerated without effusion. The middle ear cavities appear grossly unremarkable. There appears to be some cerumen within both external auditory canals. Impression: 1. 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 2. 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 There is a tiny low-attenuation density within the head of each caudate nucleus which I don't believe represents a significant interval change from 06/09/2018. These are either due to prominent perivascular spaces, or tiny old lacunar infarcts.
[2018-12-20 12:09] VITALS: BP 148/65; PULSE 67
--- NOTE | 2018-12-20 15:42 | PCM.DS ---
Discharge Summary Date of Admission: 12/15/18 09:06 Admitting Physician: LIZET SOLIS Primary Care Provider: LIZET SOLIS Allergies Allergies Penicillins Allergy (Intermediate, Verified 12/13/18 16:00) [id number]-Sfo Reductase Inhibitor Allergy (Verified 12/13/18 16:00) Hospital Summary - Hospital Course Hospital Course: Pt is a 68 yo mael pt of mine from [facility] with DM, chronic pain, chronic diarrhea who was admitted with weakness and diarrhea and found to have pneumonia. Was treated with three days of rocephin and zithromax then changed to IV levaquin when there was no improvement. Today is day #8 of IV antibiotics. GI pathogen panel and c. diff were negative. Stool lactoferring was positive. Has not been eating well until recently. Has been doing PT, can get up to the bathroom by himself. Lives at home with his and is still requiring more care than she can give at home. Pt seen this morning by me, he has been eating more but consequently having more stools. Takes pepto at home prn, would like to have it available QID although usually doesn't take it that often. Pt is complaining that his pain medicine only lasts 2 hrs; thinks it lasts about 4 hrs. has been getting it QID. Two days ago he was hallucinating about a little boy in the opposite room, with a Nazi uniform on. No hallucinations since Sat morning. He will be discharging to swing bed today. - Vitals & Intake/Output Vital Signs: Vital Signs Temperature 96.9 F 12/20/18 12:00 Pulse Rate 67 12/20/18 12:00 Respiratory Rate 20 12/20/18 12:00 Blood Pressure 148/65 12/20/18 12:00 O2 Sat by Pulse Oximetry 94 L 12/20/18 12:00 Oxygen-Last Documented O2 Percentage 3 Liters = 32% Intake & Output: Intake & Output 12/18/18 12/19/18 12/20/18 12/21/18 11:59 11:59 11:59 11:59 Intake Total 1890 1560 2140 Output Total 1801 700 Balance 89 860 2140 - Lab Result Diagrams: 12/18/18 05:40 12/18/18 05:40 Lab Results-Last 24 Hrs: Accuchecks Date 12/19/18 Time 16:30 Accucheck Value: 163 Accucheck Value: 176 Accucheck Value: 188 Accucheck Value: 154 Lab Results-Last 24 Hours 12/19/18 12/19/18 Range/Units 13:15 13:15 Vitamin B12 279 (239-931) pg/mL TSH 3rd Generation 2.660 (0.47-4.68) mIU/L Micro Results-Entire Visit: Microbiology 12/13/18 16:10 Blood Culture Gram Stain - Final Blood Not Reportable Blood Culture - Final NO GROWTH 12/13/18 20:40 Blood Culture Gram Stain - Final Blood Not Reportable Blood Culture - Final NO GROWTH Accuchecks Date 12/19/18 Time 16:30 Accucheck Value: 163 Accucheck Value: 176 Accucheck Value: 188 Accucheck Value: 154 - Radiology Exams Ordered Rad Exams-Entire Visit: Radiology Procedures Category Date Time Status HEAD WITHOUT CONTRAST [CT] Routine Exams 12/20/18 09:09 Completed - Procedures and Test Procedures and Tests throughout Hospitalization: Therapy Orders & Screens 12/13/18 20:20 Oxygen Nasal Cannula 2 lpm Comment: 12/13/18 22:32 Respiratory Therapy Consult ONCE Comment: Reason For Exam: Diagnosis: Pneumonia 12/13/18 23:19 OT Screen per Nursing Assess Comment: Protocol Order Physician Instructions: Greater than 3 points order OT Admission Screening Reason For Exam: Triggered on Admission Diagnosis: Pneumonia Open Wound/Cellutlitis/Pressure Ulcers: No Acute Fx/ORIF/Change in wt bearing status: No Severe MUSCULOSKELETAL pain: No ADL Dysfunction: Yes Acute CVA w/Hemiparesis/Hemiplegia: No Decreased Functional Mobility/Strength: Yes Sprain/Strain: No Acute Post-op Mobility Dysfunction: No Total Points: 4 PT Screen per Nursing Assess Comment: Protocol Order Physician Instructions: Greater than 3 points order PT Admission Screenin Reason For Exam: Triggered on Admission Diagnosis: Pneumonia Open Wound/Cellutlitis/Pressure Ulcers: No Acute Fx/ORIF/Change in wt bearing status: No Severe MUSCULOSKELETAL pain: No ADL Dysfunction: Yes Acute CVA w/Hemiparesis/Hemiplegia: No Decreased Functional Mobility/Strength: Yes Sprain/Strain: No Acute Post-op Mobility Dysfunction: No Total Points: 4 ST Screen per Nursing Assess Comment: Protocol Order Physician Instructions: Greater than [address] Admission Screening Reason For Exam: Triggered on Admission Diagnosis: Pneumonia CVA/Dyshpagia/Aphasia: No: hx of CVA Cognitive Deficits: No Dehydration/Nutrition Deficit: No Reflux: Yes Oral-Motor Difficulties: No Pneumonia: Yes Long-Term Resident: No Total Points: 8 12/14/18 11:45 PT Eval & Treat (MD Order) ROUTINE Reason for Eval:: WEAKNESS, FREQUENT FALLS AT HOME. Diagnosis: Pneumonia 12/17/18 06:15 EKG STAT Comment: chest pain Diagnosis: PNEUMONIA FAILED OTPT, DARRHEA, WEAKNESS 12/17/18 14:30 EKG ROUTINE Comment: Diagnosis: PNEUMONIA FAILED OTPT, DARRHEA, WEAKNESS 12/18/18 05:00 EKG DAILY Comment: Diagnosis: PNEUMONIA FAILED OTPT, DARRHEA, WEAKNESS 12/19/18 05:00 EKG DAILY Comment: Diagnosis: PNEUMONIA FAILED OTPT, DARRHEA, WEAKNESS 12/20/18 05:00 EKG DAILY Comment: Diagnosis: PNEUMONIA FAILED OTPT, DARRHEA, WEAKNESS Discharge Exam General Appearance: no apparent distress, alert, obese Neurologic Exam: oriented x 3, cooperative Eye Exam: eyes nml inspection Ears, Nose, Throat Exam: moist mucous membranes Neck Exam: normal inspection Respiratory Exam: normal breath sounds, lungs clear, No crackles/rales, No rhonchi, No wheezing Cardiovascular Exam: regular rate/rhythm, normal heart sounds, No murmur Gastrointestinal/Abdomen Exam: soft, normal bowel sounds, tenderness (lower abd , more so on the L), No distention, No mass, No guarding, No rebound Back Exam: normal inspection, No rash Extremity Exam: swelling (trace pretibial edema bilat) Skin Exam: normal color, warm, dry, No rash Final Diagnosis/Problem List - Final Discharge Diagnosis/Problem (1) Pneumonia Status: Acute Assessment & Plan: improved; will finish 10d of IV antibiotics Code(s): J18.9 - PNEUMONIA, UNSPECIFIED ORGANISM (2) Diarrhea Status: Chronic Code(s): R19.7 - DIARRHEA, UNSPECIFIED (3) Weakness Status: Acute Assessment & Plan: swing bed for PT Code(s): R53.1 - WEAKNESS (4) Diabetes mellitus Status: Acute Code(s): E11.9 - TYPE 2 DIABETES MELLITUS WITHOUT COMPLICATIONS (5) Frequent falls Status: Chronic Code(s): R29.6 - REPEATED FALLS (6) Insomnia Status: Acute Code(s): G47.00 - INSOMNIA, UNSPECIFIED - Discharge Disposition: Swing Bed @ [facility] Condition: Stable Prescriptions: No Action Tamsulosin HCl 0.4 mg [Flomax 0.4 MG] 0.4 mg PO BID Carvedilol 6.25 mg [Coreg 6.25 MG] 6.25 mg PO BID Trazodone HCl 50 mg [Desyrel 50 mg] 50 mg PO BID Metoclopramide HCl 10 mg [Reglan 10 MG] 10 mg PO DAILY Omeprazole Magnesium [Prilosec Otc] 20 mg PO DAILY Amlodipine Besylate [Norvasc] 10 mg PO DAILY Valsartan [Diovan] 320 mg PO DAILY Clopidogrel Bisulfate 75 mg [PLAVIX 75 MG Tablet] 75 mg PO DAILY Aspirin EC 81 mg [Ecotrin 81 mg] 81 mg PO DAILY Follow up with: LIZET SOLIS [Primary Care Provider] - 1 Week
== END 2018-12-20 13:59 | disposition swing bed (61) | DRG 195 ==
LOC: ED 15:34 → MED SURG 21:09 → OBSVTOIN 12-15 09:06 → MED SURG 12-17 13:00
PROVIDERS: ADMIT Family Medicine; ATTEND Family Medicine
DX: J18.9 Pneumonia, unspecified organism (principal); E11.65 Type 2 diabetes mellitus with hyperglycemia; R19.7 Diarrhea, unspecified; R53.1 Weakness; E78.00 Pure hypercholesterolemia, unspecified; R10.84 Generalized abdominal pain; I10 Essential (primary) hypertension; R29.6 Repeated falls; G47.00 Insomnia, unspecified; J44.9 Chronic obstructive pulmonary disease, unspecified; F41.9 Anxiety disorder, unspecified; R42 Dizziness and giddiness; R33.9 Retention of urine, unspecified; R07.9 Chest pain, unspecified; I49.9 Cardiac arrhythmia, unspecified; Z79.01 Long term (current) use of anticoagulants; Z79.899 Other long term (current) drug therapy
CPT/HCPCS: 36000; 36415; 36600; 70450; 71045; 74176; 80048; 80053; 81001; 82150; 82272; 82375; 82550; 82607; 82803; 82962; 83036; 83605; 83630; 83690; 83880; 84443; 84484; 85025; 85610; 85730; 87040; 87493; 87507; 93005; 93268; 94760; 94762; 96360; 96365; 96367; 96374; 97110; 97161; 97530; 99285; G0378; J0360; J0456; J0696; J1650; J1956; A9270-GY

== ENCOUNTER 2018-12-20 11:30 | Inpatient (IN) | payer MEDICARE ==
[2018-12-20] MEDS ORDERED: Aplisol ID ONE (13:57)
[2018-12-20] MEDS ORDERED: NovoLIN R IV ONE (14:20)
[2018-12-20] MEDS ORDERED: Nitrostat 0.4 MG Tablet SL PRN (14:20)
[2018-12-20] MEDS ORDERED: Sodium Chloride 0.9% 10 ML FLUSH Syringe IV SCH (14:20)
[2018-12-20] MEDS ORDERED: TYLENOL 325 MG PO PRN (14:20)
[2018-12-20] MEDS: Pepto-Bismol PO PRN (14:23)
[2018-12-20] MEDS: NovoLOG Insulin SQ PRN ×2 (16:54→21:52)
[2018-12-20] MEDS: PERCOCET TABLET 5/325MG PO PRN ×2 (18:06→22:11)
[2018-12-20] MEDS: Flomax 0.4 MG PO SCH (21:51)
[2018-12-20] MEDS: COREG 12.5 MG PO SCH (21:51)
[2018-12-20] MEDS: Reglan 10 MG PO SCH (21:51)
[2018-12-20] MEDS: DESYREL 50 MG PO SCH (21:51)
[2018-12-21] MEDS: Pepto-Bismol PO PRN (05:21)
[2018-12-21] MEDS: PERCOCET TABLET 5/325MG PO PRN ×4 (05:23→17:34)
[2018-12-21] MEDS: NovoLOG Insulin SQ PRN ×2 (07:57→21:35)
[2018-12-21] MEDS ORDERED: APRESOLINE 20 MG/ML INJ IV PRN (08:13)
[2018-12-21] MEDS: ENOXAPARIN SODIUM SQ SCH (09:17)
[2018-12-21] MEDS: PLAVIX 75 MG Tablet PO SCH (09:18)
[2018-12-21] MEDS: Flomax 0.4 MG PO SCH ×2 (09:18→21:34)
[2018-12-21] MEDS: DESYREL 50 MG PO SCH ×2 (09:19→21:34)
[2018-12-21] MEDS: Protonix 40MG Tablet PO SCH (09:19)
[2018-12-21] MEDS: NORVASC 5 MG PO SCH (09:20)
[2018-12-21] MEDS: COREG 12.5 MG PO SCH ×2 (09:20→21:34)
[2018-12-21] MEDS: ECOTRIN 81 MG PO SCH (09:21)
[2018-12-21] MEDS: DIOVAN 80 MG PO SCH (09:22)
[2018-12-21] MEDS: Levofloxacin 500 MG Tablet PO SCH (09:22)
[2018-12-21] MEDS: OXYCODONE-ACETAMINOPHEN 10-325 PO PRN (21:34)
[2018-12-21] MEDS: Reglan 10 MG PO SCH (21:34)
[2018-12-22] MEDS: OXYCODONE-ACETAMINOPHEN 10-325 PO PRN ×3 (03:57→15:27)
[2018-12-22] MEDS: NovoLOG Insulin SQ PRN ×2 (08:00→22:57)
[2018-12-22] MEDS: DIOVAN 80 MG PO SCH (10:07)
[2018-12-22] MEDS: NORVASC 5 MG PO SCH (10:07)
[2018-12-22] MEDS: ENOXAPARIN SODIUM SQ SCH (10:08)
[2018-12-22] MEDS: PLAVIX 75 MG Tablet PO SCH (10:08)
[2018-12-22] MEDS: DESYREL 50 MG PO SCH ×2 (10:08→22:55)
[2018-12-22] MEDS: Protonix 40MG Tablet PO SCH (10:08)
[2018-12-22] MEDS: Levofloxacin 500 MG Tablet PO SCH (10:08)
[2018-12-22] MEDS: COREG 12.5 MG PO SCH ×2 (10:08→22:54)
[2018-12-22] MEDS: Flomax 0.4 MG PO SCH ×2 (10:08→22:54)
[2018-12-22] MEDS: ECOTRIN 81 MG PO SCH (10:08)
[2018-12-22] MEDS: Pepto-Bismol PO PRN ×2 (10:25→18:25)
--- NOTE | 2018-12-22 15:08 | PCM.NOTE ---
Date and Time: 12/22/18 1501 Subjective Assessment: Pt c/o pain in various areas, says the pain meds are working now but not lasting long enough. Walking with PT in the [place]. - Review of Systems Constitutional: No Fever Musculoskeletal: Arthralgias Objective Exam General Appearance: no apparent distress, alert Neurologic Exam: oriented x 3, cooperative Skin Exam: normal color, warm, dry, No rash Respiratory Exam: normal breath sounds, lungs clear, No crackles/rales, No rhonchi, No wheezing Cardiovascular Exam: regular rate/rhythm, normal heart sounds, No murmur Extremity Exam: swelling (trace LE edema bilat) OBJECTIVE DATA Vital Signs: Vital Signs - 24 hr Temp Pulse Resp BP Pulse Ox 12/22/18 07:19 91 L 12/22/18 07:17 160/75 12/22/18 07:16 98.1 F 66 78 H 199/90 90 L 12/21/18 19:45 91 L 12/21/18 19:03 98.0 F 75 20 158/78 95 Pain Assessment - Last Documented Pain Intensity 7 Pain Scale Used 0-10 Pain Scale Intake and Output: Intake & Output 12/20/18 12/21/18 12/22/18 12/23/18 11:59 11:59 11:59 11:59 Intake Total 300 580 Output Total 100 Balance 200 580 Weight 117.5 kg 117.5 kg Lab Results: Accuchecks Date 12/21/18 Time 22:00 Accucheck Value: 170 Assessment/Plan (1) Pneumonia Current Visit: No Status: Acute Qualifiers: Pneumonia type: due to unspecified organism Laterality: left Lung location: lower lobe of lung Qualified Code(s): J18.1 - Lobar pneumonia, unspecified organism Assessment & Plan: On IV levaquin - day #8 today. Would like him to finish 10d of levaquin. He will probably be going home next Thursday. Code(s): J18.9 - PNEUMONIA, UNSPECIFIED ORGANISM (2) Weakness Current Visit: No Status: Acute Assessment & Plan: doing better with therapy. Code(s): R53.1 - WEAKNESS (3) Diarrhea Current Visit: No Status: Chronic Qualifiers: Diarrhea type: functional diarrhea Qualified Code(s): K59.1 - Functional diarrhea Code(s): R19.7 - DIARRHEA, UNSPECIFIED (4) Frequent falls Current Visit: No Status: Chronic Code(s): R29.6 - REPEATED FALLS
[2018-12-22] MEDS ORDERED: BENADRYL 25 MG CAPSULE PO PRN (19:03)
[2018-12-22] MEDS: Reglan 10 MG PO SCH (22:54)
[2018-12-23] MEDS: Pepto-Bismol PO PRN (05:56)
[2018-12-23] MEDS: OXYCODONE-ACETAMINOPHEN 10-325 PO PRN ×3 (07:41→20:52)
[2018-12-23] MEDS: DESYREL 50 MG PO SCH ×2 (08:32→20:53)
[2018-12-23] MEDS: DIOVAN 80 MG PO SCH (08:32)
[2018-12-23] MEDS: PLAVIX 75 MG Tablet PO SCH (08:33)
[2018-12-23] MEDS: Flomax 0.4 MG PO SCH ×2 (08:33→20:52)
[2018-12-23] MEDS: Levofloxacin 500 MG Tablet PO SCH (08:33)
[2018-12-23] MEDS: Protonix 40MG Tablet PO SCH (08:33)
[2018-12-23] MEDS: ECOTRIN 81 MG PO SCH (08:33)
[2018-12-23] MEDS: COREG 12.5 MG PO SCH ×2 (08:33→20:52)
[2018-12-23] MEDS: NovoLOG Insulin SQ PRN ×2 (08:34→20:53)
[2018-12-23] MEDS: NORVASC 5 MG PO SCH (08:34)
[2018-12-23] MEDS: ENOXAPARIN SODIUM SQ SCH (08:34)
[2018-12-23] MEDS: Reglan 10 MG PO SCH (20:52)
[2018-12-24] MEDS: Pepto-Bismol PO PRN (02:28)
[2018-12-24] MEDS: OXYCODONE-ACETAMINOPHEN 10-325 PO PRN ×4 (06:43→21:47)
[2018-12-24] MEDS ORDERED: CORTISONE 1% CREAM TP PRN (06:54)
[2018-12-24] MEDS: PLAVIX 75 MG Tablet PO SCH (08:31)
[2018-12-24] MEDS: Protonix 40MG Tablet PO SCH (08:32)
[2018-12-24] MEDS: NORVASC 5 MG PO SCH (08:32)
[2018-12-24] MEDS: Levofloxacin 500 MG Tablet PO SCH (08:32)
[2018-12-24] MEDS: DIOVAN 80 MG PO SCH (08:32)
[2018-12-24] MEDS: DESYREL 50 MG PO SCH ×2 (08:32→21:47)
[2018-12-24] MEDS: COREG 12.5 MG PO SCH ×2 (08:32→21:47)
[2018-12-24] MEDS: ENOXAPARIN SODIUM SQ SCH (08:32)
[2018-12-24] MEDS: ECOTRIN 81 MG PO SCH (08:32)
[2018-12-24] MEDS: Flomax 0.4 MG PO SCH ×2 (08:32→21:47)
[2018-12-24] MEDS: Reglan 10 MG PO SCH (21:47)
[2018-12-24] MEDS: NovoLOG Insulin SQ PRN (21:47)
[2018-12-25] MEDS: OXYCODONE-ACETAMINOPHEN 10-325 PO PRN ×4 (04:04→20:57)
[2018-12-25] MEDS: NORVASC 5 MG PO SCH (10:37)
[2018-12-25] MEDS: Protonix 40MG Tablet PO SCH (10:38)
[2018-12-25] MEDS: COREG 12.5 MG PO SCH ×2 (10:38→20:58)
[2018-12-25] MEDS: ECOTRIN 81 MG PO SCH (10:38)
[2018-12-25] MEDS: DIOVAN 80 MG PO SCH (10:38)
[2018-12-25] MEDS: Flomax 0.4 MG PO SCH ×2 (10:38→20:57)
[2018-12-25] MEDS: DESYREL 50 MG PO SCH ×2 (10:38→20:58)
[2018-12-25] MEDS: PLAVIX 75 MG Tablet PO SCH (10:38)
[2018-12-25] MEDS: ENOXAPARIN SODIUM SQ SCH (10:39)
[2018-12-25] MEDS: Reglan 10 MG PO SCH (20:57)
[2018-12-25] MEDS: NovoLOG Insulin SQ PRN (20:58)
[2018-12-26] MEDS: OXYCODONE-ACETAMINOPHEN 10-325 PO PRN ×4 (04:57→21:16)
[2018-12-26] MEDS: DESYREL 50 MG PO SCH ×2 (10:20→21:15)
[2018-12-26] MEDS: ECOTRIN 81 MG PO SCH (10:20)
[2018-12-26] MEDS: DIOVAN 80 MG PO SCH (10:20)
[2018-12-26] MEDS: PLAVIX 75 MG Tablet PO SCH (10:20)
[2018-12-26] MEDS: Protonix 40MG Tablet PO SCH (10:20)
[2018-12-26] MEDS: NORVASC 5 MG PO SCH (10:20)
[2018-12-26] MEDS: Flomax 0.4 MG PO SCH ×2 (10:20→21:15)
[2018-12-26] MEDS: COREG 12.5 MG PO SCH ×2 (10:20→21:16)
[2018-12-26] MEDS: ENOXAPARIN SODIUM SQ SCH (10:21)
[2018-12-26] MEDS: Reglan 10 MG PO SCH (21:16)
[2018-12-26] MEDS: NovoLOG Insulin SQ PRN (21:18)
[2018-12-27] MEDS: OXYCODONE-ACETAMINOPHEN 10-325 PO PRN ×2 (03:11→08:12)
[2018-12-27 07:04] VITALS: O2SAT 94
[2018-12-27 07:30] VITALS: BP 142/82; PULSE 60
[2018-12-27] MEDS: DIOVAN 80 MG PO SCH (08:11)
[2018-12-27] MEDS: DESYREL 50 MG PO SCH (08:11)
[2018-12-27] MEDS: PLAVIX 75 MG Tablet PO SCH (08:11)
[2018-12-27] MEDS: ECOTRIN 81 MG PO SCH (08:11)
--- NOTE | 2018-12-27 08:11 | PCM.DS ---
Discharge Summary Date of Admission: 12/20/18 14:00 Admitting Physician: LIZET SOLIS Primary Care Provider: LIZET SOLIS Allergies Allergies Penicillins Allergy (Intermediate, Verified 12/13/18 16:00) [id number] Reductase Inhibitor Allergy (Verified 12/13/18 16:00) Hospital Summary - Hospital Course Hospital Course: Pt is a 68 yo male pt of mine from [facility] with COPD, HTN, and DM with chronic pain who was admitted through ER with weakness, fall, and acute on chronic diarrhea. He was also found to have pneumonia. He completed a course of IV antibiotics. After his acute stay he was admitted for a week of swing bed stay and rehab due to weakness. His diarrhea was neg for C. diff or other detectable pathogens. He has been getting rehab and doing well. Would like to go home today. Has had exacerbation of his chronic pain in different areas of his body, he thinks due to the chair and bed here in the hospital. Has been requiring percocet but does not think he will need pain medicine at home. I have advised that he may have a few percocet to go home on, but if he needs chronic pain meds he will need to see pain management. Pt has c/o LE edema throughout his stay. BP have been slightly elevated but better since I increased his carvedilol from 6.25 po BID to 12.5 mg po BID. - Vitals & Intake/Output Vital Signs: Vital Signs Temperature 98.2 F 12/27/18 07:29 Pulse Rate 60 12/27/18 07:29 Respiratory Rate 18 12/27/18 07:29 Blood Pressure 142/82 12/27/18 07:29 O2 Sat by Pulse Oximetry 94 L 12/27/18 07:29 Intake & Output: Intake & Output 12/24/18 12/25/18 12/26/18 12/27/18 11:59 11:59 11:59 11:59 Intake Total 540 9178 542 2786 Balance 540 8882 537 9851 Weight 116.3 kg - Lab Lab Results-Last 24 Hrs: Accuchecks Date 12/26/18 Time 07:30 Accucheck Value: 211 Accucheck Value: 194 Micro Results-Entire Visit: Accuchecks Date 12/26/18 Time 07:30 Accucheck Value: 211 Accucheck Value: 194 - Procedures and Test Procedures and Tests throughout Hospitalization: Therapy Orders & Screens 12/20/18 13:58 Oxygen Nasal Cannula 2 lpm Comment: Discharge Exam General Appearance: no apparent distress, alert Neurologic Exam: oriented x 3, cooperative Eye Exam: eyes nml inspection Ears, Nose, Throat Exam: moist mucous membranes Neck Exam: normal inspection Respiratory Exam: normal breath sounds, lungs clear, No crackles/rales, No rhonchi, No wheezing Cardiovascular Exam: regular rate/rhythm, normal heart sounds, No murmur Extremity Exam: pedal edema (1+ edema LE bilat, pedal and pretibial) Skin Exam: normal color, warm, dry, No rash Final Diagnosis/Problem List - Final Discharge Diagnosis/Problem (1) Pneumonia Current Visit: No Status: Resolved Code(s): J18.9 - PNEUMONIA, UNSPECIFIED ORGANISM (2) Weakness Current Visit: No Status: Resolved Code(s): R53.1 - WEAKNESS (3) Diarrhea Current Visit: No Status: Resolved Code(s): R19.7 - DIARRHEA, UNSPECIFIED (4) Frequent falls Current Visit: No Status: Chronic Code(s): R29.6 - REPEATED FALLS (5) Hypertension Current Visit: Yes Status: Chronic Assessment & Plan: home with carvedilol increased from 6.25 mg po BID to 12.5mg po BID. Code(s): I10 - ESSENTIAL (PRIMARY) HYPERTENSION (6) Generalized pain Current Visit: No Status: Chronic Code(s): R52 - PAIN, UNSPECIFIED - Discharge Disposition: Home, Self-Care Condition: Good Prescriptions: New Carvedilol 12.5 mg [Coreg 12.5 mg] 12.5 mg PO BID #60 tablet Oxycodone / APAP 10/325 mg [Oxycodone-Acetaminophen 10-325] 1 tab PO QID PRN PRN #10 tablet MDD 4 PRN Reason: Pain Continue Tamsulosin HCl 0.4 mg [Flomax 0.4 MG] 0.4 mg PO BID Trazodone HCl 50 mg [Desyrel 50 mg] 50 mg PO BID Metoclopramide HCl 10 mg [Reglan 10 MG] 10 mg PO DAILY Omeprazole Magnesium [Prilosec Otc] 20 mg PO DAILY Amlodipine Besylate [Norvasc] 10 mg PO DAILY Valsartan [Diovan] 320 mg PO DAILY Clopidogrel Bisulfate 75 mg [PLAVIX 75 MG Tablet] 75 mg PO DAILY Aspirin EC 81 mg [Ecotrin 81 mg] 81 mg PO DAILY Discontinued Carvedilol 6.25 mg [Coreg 6.25 MG] 6.25 mg PO BID Follow up with: LIZET SOLIS [Primary Care Provider] - 1 Week
[2018-12-27] MEDS: Flomax 0.4 MG PO SCH (08:12)
[2018-12-27] MEDS: NORVASC 5 MG PO SCH (08:12)
[2018-12-27] MEDS: COREG 12.5 MG PO SCH (08:12)
[2018-12-27] MEDS: ENOXAPARIN SODIUM SQ SCH (08:13)
[2018-12-27] MEDS: Protonix 40MG Tablet PO SCH (08:13)
[2018-12-27] MEDS: NovoLOG Insulin SQ PRN (08:20)
== END 2018-12-27 10:10 | disposition home or self-care (01) | DRG 195 ==
LOC: MED SURG 14:00
PROVIDERS: ADMIT Family Medicine; ATTEND Family Medicine
DX: J18.9 Pneumonia, unspecified organism (principal); I10 Essential (primary) hypertension; E11.9 Type 2 diabetes mellitus without complications; G89.29 Other chronic pain; R53.1 Weakness; R19.7 Diarrhea, unspecified; R29.6 Repeated falls
CPT/HCPCS: 82962; 94760; J1650; 97110-GP; A9270-GY

== ENCOUNTER 2020-02-02 17:18 | Observation (INO) | payer MEDICARE ==
--- NOTE | 2020-02-02 17:26 | ERPHSYRPT ---
- History of Present Illness Time Seen by Provider: 02/02/20 17:20 Source: EMS Physician History: Patient is a 69-year-old male presents to our ED for evaluation of found unresponsive with agonal breathing. Patient was at his pain specialist office today. Per report patient received 2 injections of Dilaudid to his back. The exact dosage is not known at this time. The dosage occurred at approximately 10:50 AM this morning. Patient was discharged home. Approximately 45 minutes prior to arrival patient's found patient unresponsive on the ground. Breathing was agonal. Fire department arrived to the scene. Patient was administered Narcan 4 mg and responded. Patient's mental status improved back to his baseline. Patient is on Xarelto aspirin and Plavix. He also has a pacemaker. Patient denies pain. He is currently alert and oriented x3. No chest pain or shortness of breath. No nausea vomiting or diaphoresis. Symptoms are mild to moderate in intensity. No specific worsening or improving factors. Patient denies neck pain. Cervical spine cleared clinically. Patient voices no other complaints or concerns at this time. Timing/Duration: today Severity: moderate Modifying Factors: Improves With: medication (Narcan improve symptomology.) Associated Symptoms: denies symptoms Allergies/Adverse Reactions: Penicillins Allergy (Intermediate, Verified 12/13/18 16:00) [id number] Reductase Inhibitor Allergy (Verified 12/13/18 16:00) Home Medications: Amlodipine Besylate [Norvasc] 10 mg PO DAILY 06/09/18 [History] Clopidogrel Bisulfate 75 mg [PLAVIX 75 MG Tablet] 75 mg PO DAILY 06/09/18 [History] Metoclopramide HCl 10 mg [Reglan 10 MG] 10 mg PO DAILY 06/09/18 [History] Omeprazole Magnesium [Prilosec Otc] 20 mg PO DAILY 06/09/18 [History] Tamsulosin HCl 0.4 mg [Flomax 0.4 MG] 0.4 mg PO BID 06/09/18 [History] Trazodone HCl 50 mg [Desyrel 50 mg] 50 mg PO BID 06/09/18 [History] Valsartan [Diovan] 320 mg PO DAILY 06/09/18 [History] Aspirin EC 81 mg [Ecotrin 81 mg] 81 mg PO DAILY 12/13/18 [History] Hx Influenza Vaccination/Date Given: No Hx Pneumococcal Vaccination/Date Given: No - Review of Systems Constitutional: No Symptoms, No Fever, No Chills Eyes: No Symptoms Ears, Nose, & Throat: No Symptoms Respiratory: No Symptoms, No Cough, No Dyspnea Cardiac: No Symptoms, No Chest Pain, No Edema, No Syncope Abdominal/Gastrointestinal: No Symptoms, No Abdominal Pain, No Nausea, No Vomiting, No Diarrhea Genitourinary Symptoms: No Symptoms, No Dysuria Musculoskeletal: No Symptoms, No Back Pain, No Neck Pain Skin: No Symptoms, No Rash Neurological: No Symptoms, No Dizziness, No Focal Weakness, No Sensory Changes Psychological: No Symptoms Endocrine: No Symptoms Hematologic/Lymphatic: No Symptoms Immunological/Allergic: No Symptoms All Other Systems: Reviewed and Negative - Past Medical History Pertinent Past Medical History: Yes Neurological History: Dementia, Migraines, Stroke ENT History: No Pertinent History Cardiac History: Angina, Arrhythmia, Coronary Artery Disease, High Cholesterol, Hypertension, Myocardial Infarction ([place]), Peripheral Vascular Disease, Other Respiratory History: Bronchitis Endocrine Medical History: No Pertinent History Musculoskeletal History: Arthritis GI Medical History: GERD, Irritable Bowel History: No Pertinent History Psycho-Social History: No Pertinent History Male Reproductive Disorders: Prostate Problems Other Medical History: recent pacemaker placement in September 2018 - Past Surgical History Past Surgical History: Yes Neuro Surgical History: No Pertinent History Cardiac: CABG, Cardiac Catheterization, Cardiac Stent, Pacemaker, Vascular Surgery, Other Respiratory: No Pertinent History Gastrointestinal: Cholecystectomy Genitourinary: No Pertinent History Musculoskeletal: No Pertinent History Male Surgical History: No Pertinent History Other Surgical History: arterial surgery in both legs; right carotid surgery in last 10 years; left carotid surgery in August 2018- now 100% blocked after surgery - Social History Smoking Status: Former smoker How long have you smoked: 50+years Exposure to second hand smoke: No Drug Use: none Patient Lives Alone: No - Nursing Vital Signs Nursing Vital Signs: Initial Vital Signs Temperature 97.0 F 02/02/20 17:19 Pulse Rate 65 02/02/20 17:19 Respiratory Rate 18 02/02/20 17:19 Blood Pressure 178/104 02/02/20 17:19 O2 Sat by Pulse Oximetry 100 02/02/20 17:19 Pain Scale Pain Intensity 10 - Physical Exam General Appearance: no apparent distress, alert Eye Exam: PERRL/EOMI, eyes nml inspection Ears, Nose, Throat Exam: normal ENT inspection, TMs normal, pharynx normal, moist mucous membranes Neck Exam: normal inspection, non-tender, supple, full range of motion Respiratory Exam: normal breath sounds, lungs clear, No respiratory distress Cardiovascular Exam: regular rate/rhythm, normal heart sounds, normal peripheral pulses Gastrointestinal/Abdomen Exam: soft, normal bowel sounds, No tenderness, No mass Back Exam: normal inspection, normal range of motion, No CVA tenderness, No vertebral tenderness Extremity Exam: normal inspection, normal range of motion, pelvis stable Neurologic Exam: alert, oriented x 3, cooperative, normal mood/affect, nml cerebellar function, sensation nml, No motor deficits Skin Exam: normal color, warm, dry, No rash Lymphatic Exam: No adenopathy SpO2 Interpretation: normal O2 Delivery: Room Air - Course Nursing assessment & vital signs reviewed: Yes EKG Interpreted by Me: RATE (67, ventricular paced rhythm.) - Radiology Exams Chest X-ray Interpretation: Teleradiologist Report (Clear lung timmons, sternotomy wires, pacemaker, bony thorax. No infiltrate or consolidation. Normal chest x- ray.) Ordered Tests: Active Orders 24 hr Category Date Time Status Mobile Practice Lead STAT Care 02/02/20 17:22 Active EKG-ER Only STAT Care 02/02/20 17:21 Active IV Insertion STAT Care 02/02/20 17:21 Active Pulse Oximetry (ED) STAT Care 02/02/20 17:21 Active CHEST 1 VIEW (PORTABLE) Stat Exams 02/02/20 17:22 Taken ARTERIAL BLOOD GASES Urgent Lab 02/02/20 17:21 Completed CBC W DIFF Stat Lab 02/02/20 17:21 Completed CMP Stat Lab 02/02/20 17:21 Completed Lactic Acid Stat Lab 02/02/20 17:39 Completed TROPONIN Q3H Lab 02/02/20 17:30 Received TROPONIN Q3H Lab 02/02/20 20:30 Ordered TROPONIN Q3H Lab 02/02/20 23:30 Ordered TROPONIN Q3H Lab 02/03/20 02:30 Ordered TROPONIN Q3H Lab 02/03/20 05:30 Ordered UA W/RFX UR CULTURE Stat Lab 02/02/20 17:22 Uncollected Medication Summary Generic Name Dose Route Start Last Admin Trade Name Freq PRN Reason Stop Dose Admin Naloxone HCl 2 mg/ Dextrose 502 mls @ 0 mls/hr 02/02/20 18:23 IV 03/03/20 18:22 .Q0M PRN OVERDOSE Protocol Titrate Lab/Rad Data: Laboratory Result Diagrams 02/02/20 17:21 02/02/20 17:21 Laboratory Results 02/02/20 02/02/20 02/02/20 Range/Units 17:39 17:30 17:21 WBC (4.0-10.5) K/mm3 RBC (4.1-5.6) M/mm3 Hgb (12.5-18.0) gm/dl Hct (42-50) % MCV (78-100) fl MCH (26-32) pg MCHC (32-36) g/dl RDW (11.5-14.0) % Plt Count (150-450) K/mm3 MPV (7.5-11.0) fl Gran % (36.0-66.0) % Eos # (Auto) (0-0.5) Absolute Lymphs (auto) (1.0-4.6) Absolute Monos (auto) (0.0-1.3) Lymphocytes % (24.0-44.0) % Monocytes % (0.0-12.0) % Eosinophils % (0.00-5.0) % Basophils % (0.0-0.4) % Absolute Granulocytes (1.4-6.9) Basophils # (0-0.4) Puncture Site RIGHT BRACHIAL pCO2 33 L (35-45) mmHg pO2 133 H* (75-100) mmHg Base Excess -0.4 (-2.0-2.0) O2 Saturation 96.5 (94-100) g/dF ABG pH 7.45 (7.35-7.45) ABG HCO3 22.9 (22-28) ABG O2 Sat (Measured) 99.3 (95-100) % Obdulio Test NOT APPLICABLE A-a Gradient 82 a/A Ratio 0.62 Hemoglobin 13.8 Carboxyhemoglobin 2.0 (0.0-6.9) % THgb Methemoglobin 0.8 L (1.4-1.5) % Potassium 4.1 (3.5-5.1) Temperature 37.0 C POC O2 Flow Rate 36 % Sodium (137-145) mmol/L Chloride (98-107) mmol/L Carbon Dioxide (22-30) mmol/L Anion Gap (5-15) MEQ/L BUN (9-20) mg/dL Creatinine (0.66-1.25) mg/dL Estimated GFR ML/MIN Glucose (74-106) mg/dL Lactic Acid 3.6 H (0.4-2.0) Calcium (8.4-10.2) mg/dL Total Bilirubin (0.2-1.3) mg/dL AST (17-59) U/L ALT (0-50) U/L Alkaline Phosphatase (38-126) U/L Troponin I 0.016 (0.000-0.034) ng/mL Serum Total Protein (6.3-8.2) g/dL Albumin (3.5-5.0) g/dL 02/02/20 02/02/20 Range/Units 17:21 17:21 WBC 5.1 (4.0-10.5) K/mm3 RBC 4.32 (4.1-5.6) M/mm3 Hgb 13.0 (12.5-18.0) gm/dl Hct 40.8 L (42-50) % MCV 94.4 (78-100) fl MCH 30.1 (26-32) pg MCHC 31.9 L (32-36) g/dl RDW 16.1 H (11.5-14.0) % Plt Count 123 L (150-450) K/mm3 MPV 11.2 H (7.5-11.0) fl Gran % 76.9 H (36.0-66.0) % Eos # (Auto) 0.02 (0-0.5) Absolute Lymphs (auto) 0.73 L (1.0-4.6) Absolute Monos (auto) 0.43 (0.0-1.3) Lymphocytes % 14.3 L (24.0-44.0) % Monocytes % 8.4 (0.0-12.0) % Eosinophils % 0.4 (0.00-5.0) % Basophils % 0.0 (0.0-0.4) % Absolute Granulocytes 3.94 (1.4-6.9) Basophils # 0 (0-0.4) Puncture Site pCO2 (35-45) mmHg pO2 (75-100) mmHg Base Excess (-2.0-2.0) O2 Saturation (94-100) g/dF ABG pH (7.35-7.45) ABG HCO3 (22-28) ABG O2 Sat (Measured) (95-100) % Obdulio Test A-a Gradient a/A Ratio Hemoglobin Carboxyhemoglobin (0.0-6.9) % THgb Methemoglobin (1.4-1.5) % Potassium 4.0 (3.5-5.1) Temperature C POC O2 Flow Rate % Sodium 135 L (137-145) mmol/L Chloride 105 (98-107) mmol/L Carbon Dioxide 21 L (22-30) mmol/L Anion Gap 12.5 (5-15) MEQ/L BUN 14 (9-20) mg/dL Creatinine 1.56 H (0.66-1.25) mg/dL Estimated GFR 47.0 ML/MIN Glucose 175 H (74-106) mg/dL Lactic Acid (0.4-2.0) Calcium 8.6 (8.4-10.2) mg/dL Total Bilirubin 0.50 (0.2-1.3) mg/dL AST 29 (17-59) U/L ALT 18 (0-50) U/L Alkaline Phosphatase 176 H (38-126) U/L Troponin I (0.000-0.034) ng/mL Serum Total Protein 8.0 (6.3-8.2) g/dL Albumin 3.6 (3.5-5.0) g/dL - Progress Progress: improved Progress Note: 02/02/20 18:42 Patient reassessed. He is well. Patient currently on a Narcan drip. Platelets a little low at 123. Creatinine elevated. informed us that patient has chronic renal insufficiency. However creatinine is a little higher than his baseline. Lactic acid 3.6. IV fluids running. Repeat neuro exam within normal limits. CT scan head ordered however patient declined CT scan. We will admit patient for observation. 02/02/20 18:45 Discussed with : Jazzy Will see patient in: hospital (observation) Counseled pt/family regarding: lab results, diagnosis, rad results - Departure Departure Disposition: Observation Clinical Impression: Overdose, Acute renal injury, Thrombocytopenia, Elevated lactic acid level Condition: Stable Critical Care Time: No Referrals: LIZET MCFARLANE [Primary Care Provider] -
[2020-02-02 17:30] LABS: Absolute Neutrophil Ct (ANC) 3.94 (1.4-6.9); Basophil (Absolute #) 0 (0-0.4); Eosinophil % 0.4 % (0.00-5.0); Eosinophil (Absolute #) 0.02 (0-0.5); Hematocrit 40.8 % (42-50); Lymphocyte (Absolute #) 0.73 (1.0-4.6); Lymphocytes % 14.3 % (24.0-44.0); Mean Cell Volume 94.4 fl (78-100); Mean Corpuscular Hemoglobin 30.1 pg (26-32); Mean Corpuscular Hgb Concent. 31.9 g/dl (32-36); Mean Platelet Volume 11.2 fl (7.5-11.0); Monocyte (Absolute #) 0.43 (0.0-1.3); Monocytes % 8.4 % (0.0-12.0); Neutrophil % 76.9 % (36.0-66.0); Platelet Count 123 K/mm3 (150-450); Red Blood Count 4.32 M/mm3 (4.1-5.6); Red Cell Distribution Width 16.1 % (11.5-14.0); White Blood Count 5.1 K/mm3 (4.0-10.5)
[2020-02-02 17:32] LABS: A-aADO2 82; ABG HEMOGLOBIN 13.8; ABG POTASSIUM 4.1 (3.5-5.1); ABG SITE RIGHT BRACHIAL; ARTERIAL BLD GAS O2 SATURATION 99.3 % (95-100); ARTERIAL BLOOD GAS BASE EXCESS -0.4 (-2.0-2.0); ARTERIAL BLOOD GAS FIO2 36 %; ARTERIAL BLOOD GAS PCO2 33 mmHg (35-45); ARTERIAL BLOOD GAS PO2 133 mmHg (75-100); ARTERIAL BLOOD GAS pH 7.45 (7.35-7.45); HCO3- 22.9 (22-28); HGB O2 SAT 96.5 g/dF (94-100); Methhemoglobin 0.8 % (1.4-1.5); paO2 pAO1 0.62
[2020-02-02 17:41] LABS: ALBUMIN 3.6 g/dL (3.5-5.0); ANION GAP 12.5 MEQ/L (5-15); BILIRUBIN,TOTAL 0.5 mg/dL (0.2-1.3); Calcium 8.6 mg/dL (8.4-10.2); Creatinine 1 1.56 mg/dL (0.66-1.25)
[2020-02-02] MEDS ORDERED: DEXTROSE IV PRN (18:23)
[2020-02-02] MEDS ORDERED: NARCAN IV PRN (18:23)
[2020-02-02] MEDS ORDERED: WATER IV PRN (18:23)
[2020-02-02] MEDS ORDERED: Sodium Chloride 0.9% 1000 ML 1,000 ML IV SCH (19:47)
[2020-02-02] MEDS ORDERED: HUMALOG SQ PRN (21:57)
[2020-02-02] MEDS ORDERED: TORAdol 30 mg Injection IV PRN (21:57)
[2020-02-02] MEDS ORDERED: Lidoderm Patch 5% TOP SCH (22:00)
[2020-02-02] MEDS: DESYREL 50 MG PO SCH (22:44)
[2020-02-02] MEDS: Lopressor 50 MG PO SCH (22:44)
[2020-02-02] MEDS: Reglan 10 MG PO SCH (22:45)
[2020-02-03] MEDS ORDERED: NARCAN 2 MG/2 ML ONE (01:26)
[2020-02-03] MEDS ORDERED: Dextrose 5%/Water IV Soln. 500 ML 500 ML IV ONE (01:27)
[2020-02-03 05:10] LABS: Hemoglobin 10.9 gm/dl (12.5-18.0); Mean Corpuscular Hemoglobin 30.5 pg (26-32); Mean Corpuscular Hgb Concent. 31.1 g/dl (32-36); Mean Platelet Volume 11.8 fl (7.5-11.0); Platelet Count 71 K/mm3 (150-450); Red Blood Count 3.57 M/mm3 (4.1-5.6)
[2020-02-03 05:21] LABS: ALBUMIN 2.8 g/dL (3.5-5.0); ANION GAP 8.6 MEQ/L (5-15); BILIRUBIN,TOTAL 0.3 mg/dL (0.2-1.3); Calcium 8.1 mg/dL (8.4-10.2); Creatinine 1 1.53 mg/dL (0.66-1.25); EST GLOMERULAR FILTRATION RATE 48.1 ML/MIN; Potassium 4.2 mmol/L (3.5-5.1); Total Protein 6.4 g/dL (6.3-8.2); White Blood Count 1.6 K/mm3 (4.0-10.5)
[2020-02-03 06:21] LABS: Lymphocytes 39 % (24-44); Monocyte 14 % (0.0-12.0); Neutrophils 47 % (36.-66.); Platelet Estimate DECREASED (NORMAL); Total Cells Counted 100
--- NOTE | 2020-02-03 08:44 | XRAY ---
Indication: Aspiration. Overdose. Comparison: December 13, 2018. Portable chest is now clear. Heart is not enlarged again demonstrating CABG surgery and left dual-lead pacemaker. New right Port-A-Cath without complications. Chronic right hemidiaphragm elevation and osteopenia. Impression: Nonacute chest with chronic features.
[2020-02-03] MEDS: Lopressor 50 MG PO SCH ×3 (09:25→23:49)
[2020-02-03] MEDS: DESYREL 50 MG PO SCH ×2 (09:26→21:34)
[2020-02-03] MEDS ORDERED: IRBESARTAN 300 MG PO SCH (10:00)
[2020-02-03] MEDS ORDERED: NON-FORMULARY ITEM (Rivaroxaban [Xarelto] 15 MG) PO SCH (10:00)
[2020-02-03] MEDS ORDERED: NON-FORMULARY ITEM (Omeprazole Magnesium [Prilosec Otc] 20 MG) PO SCH (10:00)
--- NOTE | 2020-02-03 10:11 | XRAY ---
Indication: Urinary retention. Two-dimensional ultrasound of the urinary bladder performed. Comparison: None Urinary bladder normally distended with volume 203 cc. No focal bladder mass or wall thickening. No post void images obtained as patient unable to urinate. Impression: Negative urinary bladder sonogram.
[2020-02-03] MEDS: Avapro 150 MG PO SCH (11:16)
[2020-02-03] MEDS: XARELTO 10 MG TABLET PO SCH (11:17)
[2020-02-03] MEDS: Protonix 40MG Tablet PO SCH (11:17)
[2020-02-03] MEDS: Cordarone 200 MG PO SCH (11:17)
[2020-02-03 14:35] LABS: Appearance SLIGHTLY CLOUDY (CLEAR); Bilirubin NEGATIVE (NEGATIVE); Blood NEGATIVE Ery/ul (0-5); Glucose 50 mg/dL (NEGATIVE); Ketones NEGATIVE (NEGATIVE); Leukocyte Esterase NEGATIVE (NEGATIVE); Mucus SLIGHT /HPF (NEGATIVE); Nitrite NEGATIVE (NEGATIVE); Protein,Urine Dip 30 (Negative); Specific Gravity 1.029 (1.005-1.025); Urobilinogen 2 mg/dL (0-1)
--- NOTE | 2020-02-03 15:41 | PCM.HP ---
History of Present Illness - Chief Complaint Chief Complaint: OVERDOSE PAIN MEDICATION History of Present Illness: is a 69 year old male pt of mine from [facility] with gastric cancer (undergoing intermittent chemotherapy), BPH with chronic urinary retention, DM, HTN, and COPD who was admitted with dilaudid overdose. He saw pain management yesterday and was given a shot of dilaudid, per . He fell on the way out to the car, then fell again on the front steps. At that point he was not responding to questions but was able to sip some liquid. Pt's called me and I instructed her to call 911. Ambulance brought pt to [facility], giving him [address] and another in the ER. He was placed on narcan drip overnight. He received 1 dose of toradol overnight without relief and refused the others. He is currently awake, conversant. Was unable to pass urine overnight; this morning bladder scan showed 200 cc urine. This afternoon he could still not urinate so coudet catheter was placed with return of 600 cc urine. On admission, platelets were 123 and WBC 5.1. This morning WBC are 1.6 and plt are 71. - Review of Systems Constitutional: No Fever Genitourinary Symptoms: Urinary Retention Musculoskeletal: Back Pain (chronic) Psychological: Anxiety All Other Systems: Reviewed and Negative Medications & Allergies Home Medications: Home Medication List Metoclopramide HCl 10 mg [Reglan 10 MG] 10 mg PO HS 06/09/18 [History Confirmed 02/02/20] Omeprazole Magnesium [Prilosec Otc] 20 mg PO DAILY 06/09/18 [History Confirmed 02/02/20] Trazodone HCl 50 mg [Desyrel 50 mg] 50 mg PO BID 06/09/18 [History Confirmed 02/02/20] Oxycodone / APAP 10/325 mg [Oxycodone-Acetaminophen 10-325] 1 tab PO QID PRN PRN #10 tablet MDD 4 12/27/18 [Rx Confirmed 02/02/20] Amiodarone HCl 200 mg PO DAILY 02/02/20 [History Confirmed 02/02/20] Irbesartan 300 mg PO DAILY 02/02/20 [History Confirmed 02/02/20] Metoprolol Tartrate 50 mg [Lopressor 50 MG] 50 mg PO BID 02/02/20 [History Confirmed 02/02/20] Rivaroxaban 10 mg Tablet [Xarelto 10 mg Tablet] 10 mg PO DAILY 02/02/20 [History Confirmed 02/02/20] Rivaroxaban [Xarelto] 15 mg PO DAILY 02/02/20 [History Confirmed 02/02/20] glipiZIDE [Glipizide] 5 mg PO BID 02/02/20 [History Confirmed 02/02/20] Allergies/Adverse Reactions: Allergies Allergy/AdvReac Type Severity Reaction Status Date / Time Nxqbbaz-Cwq-Dag Reductase Allergy Severe Swelling Verified 02/02/20 20:20 Inhibitor Penicillins Allergy Intermediate Itching Verified 02/02/20 20:20 duloxetine [From Cymbalta] AdvReac Severe Verified 02/02/20 20:20 - Past Medical History Past Medical History: Yes Neurological History: Migraines, Stroke ENT History: No Pertinent History Cardiac History: Angina, Arrhythmia, Coronary Artery Disease, High Cholesterol, Hypertension, Myocardial Infarction (VT), Other Respiratory History: Bronchitis, CHF Endocrine Medical History: Diabetes Type II Musculoskelatal History: No Pertinent History GI Medical History: GERD, Irritable Bowel, Stomach Cancer History: No Pertinent History Pyscho-Social History: No Pertinent History Male Reproductive Disorders: Prostate Problems Comment: recent pacemaker placement in September 2018 - Past Surgical History Past Surgical History: Yes Neuro Surgical History: No Pertinent History Cardiac History: CABG, Cardiac Catheterization, Cardiac Stent, Pacemaker, Vascular Surgery, Other Respiratory Surgery: No Pertinent History GI Surgical History: Cholecystectomy Genitourinary Surgical Hx: No Pertinent History Musculskeletal Surgical Hx: No Pertinent History Male Surgical History: No Pertinent History Other Surgical History: arterial surgery in both legs; right carotid surgery in last 10 years; left carotid surgery in August 2018- now 100% blocked after surgery - Social History Smoking Status: Former smoker How long have you smoked: 50+years Exposure to second hand smoke: No Alcohol: None Drug Use: none - Physical Exam Vital Signs: Vital Signs - 24 hr Temp Pulse Resp BP Pulse Ox 02/03/20 12:00 61 02/03/20 11:32 96 F 61 14 132/67 94 L 02/03/20 08:00 95 02/03/20 07:29 64 02/03/20 07:25 97.1 F 64 16 147/76 95 02/03/20 04:00 97.5 F 66 12 155/86 100 02/03/20 00:01 60 02/03/20 00:00 97.8 F 60 21 133/69 98 02/02/20 20:46 97.4 F 60 19 164/70 99 02/02/20 20:10 99 02/02/20 20:00 62 02/02/20 19:07 60 13 144/71 97 02/02/20 18:36 65 17 144/71 91 L 02/02/20 17:41 100 02/02/20 17:19 97.0 F 65 18 178/104 100 Oxygen-Last 24 hours Oxygen Flowrate (L/min)-RT 2 General Appearance: no apparent distress, alert Neurologic Exam: oriented x 3, cooperative Eye Exam: eyes nml inspection Ears, Nose, Throat Exam: moist mucous membranes Neck Exam: normal inspection, non-tender, No lymphadenopathy Respiratory Exam: normal breath sounds, lungs clear, No crackles/rales, No rhonchi, No wheezing Cardiovascular Exam: regular rate/rhythm, normal heart sounds, No murmur Gastrointestinal/Abdomen Exam: soft, normal bowel sounds, No tenderness, No distention, No mass, No guarding, No rebound Back Exam: normal inspection, No rash Extremity Exam: normal inspection, No pedal edema, No swelling Skin Exam: normal color, warm, dry, No rash Results - Labs Lab/Micro Results: Lab Results-Last 24 Hours 02/02/20 02/02/20 02/02/20 Range/Units 00:01 17:21 17:21 WBC 5.1 (4.0-10.5) K/mm3 RBC 4.32 (4.1-5.6) M/mm3 Hgb 13.0 (12.5-18.0) gm/dl Hct 40.8 L (42-50) % MCV 94.4 (78-100) fl MCH 30.1 (26-32) pg MCHC 31.9 L (32-36) g/dl RDW 16.1 H (11.5-14.0) % Plt Count 123 L (150-450) K/mm3 MPV 11.2 H (7.5-11.0) fl Gran % 76.9 H (36.0-66.0) % Eos # (Auto) 0.02 (0-0.5) Absolute Lymphs (auto) 0.73 L (1.0-4.6) Absolute Monos (auto) 0.43 (0.0-1.3) Lymphocytes % 14.3 L (24.0-44.0) % Monocytes % 8.4 (0.0-12.0) % Eosinophils % 0.4 (0.00-5.0) % Basophils % 0.0 (0.0-0.4) % Absolute Granulocytes 3.94 (1.4-6.9) Segmented Neutrophils (36.-66.) % Lymphocytes (Manual) (24-44) % Monocytes (Manual) (0.0-12.0) % Basophils # 0 (0-0.4) Platelet Estimate (NORMAL) RBC Morphology Puncture Site pCO2 (35-45) mmHg pO2 (75-100) mmHg Base Excess (-2.0-2.0) O2 Saturation (94-100) g/dF ABG pH (7.35-7.45) ABG HCO3 (22-28) ABG O2 Sat (Measured) (95-100) % Obdulio Test A-a Gradient a/A Ratio Hemoglobin Carboxyhemoglobin (0.0-6.9) % THgb Methemoglobin (1.4-1.5) % Potassium 4.0 (3.5-5.1) Temperature C POC O2 Flow Rate % Sodium 135 L (137-145) mmol/L Chloride 105 (98-107) mmol/L Carbon Dioxide 21 L (22-30) mmol/L Anion Gap 12.5 (5-15) MEQ/L BUN 14 (9-20) mg/dL Creatinine 1.56 H (0.66-1.25) mg/dL Estimated GFR 47.0 ML/MIN Glucose 175 H (74-106) mg/dL POC Glucometer (74 to 106) mg/dL Hemoglobin A1c (4.5-6.0) % Lactic Acid (0.4-2.0) Calcium 8.6 (8.4-10.2) mg/dL Total Bilirubin 0.50 (0.2-1.3) mg/dL AST 29 (17-59) U/L ALT 18 (0-50) U/L Alkaline Phosphatase 176 H (38-126) U/L Troponin I 0.018 (0.000-0.034) ng/mL Serum Total Protein 8.0 (6.3-8.2) g/dL Albumin 3.6 (3.5-5.0) g/dL Urine Color (YELLOW) Urine Appearance (CLEAR) Urine pH (5-6) Ur Specific [place] (1.005-1.025) Urine Protein (Negative) Urine Ketones (NEGATIVE) Urine Blood (0-5) [place]/ul Urine Nitrite (NEGATIVE) Urine Bilirubin (NEGATIVE) Urine Urobilinogen (0-1) mg/dL Ur Leukocyte Esterase (NEGATIVE) Urine WBC (Auto) (0-5) /HPF Urine RBC (Auto) (0-2) /HPF U Hyaline Cast (Auto) (0-2) /LPF U Epithel Cells (Auto) (FEW) /HPF Urine Bacteria (Auto) (NEGATIVE) /HPF Urine Mucus (Auto) (NEGATIVE) /HPF Urine Culture Reflexed (NO) Urine Glucose (NEGATIVE) mg/dL 02/02/20 02/02/20 02/02/20 Range/Units 17:21 17:30 17:39 WBC (4.0-10.5) K/mm3 RBC (4.1-5.6) M/mm3 Hgb (12.5-18.0) gm/dl Hct (42-50) % MCV (78-100) fl MCH (26-32) pg MCHC (32-36) g/dl RDW (11.5-14.0) % Plt Count (150-450) K/mm3 MPV (7.5-11.0) fl Gran % (36.0-66.0) % Eos # (Auto) (0-0.5) Absolute Lymphs (auto) (1.0-4.6) Absolute Monos (auto) (0.0-1.3) Lymphocytes % (24.0-44.0) % Monocytes % (0.0-12.0) % Eosinophils % (0.00-5.0) % Basophils % (0.0-0.4) % Absolute Granulocytes (1.4-6.9) Segmented Neutrophils (36.-66.) % Lymphocytes (Manual) (24-44) % Monocytes (Manual) (0.0-12.0) % Basophils # (0-0.4) Platelet Estimate (NORMAL) RBC Morphology Puncture Site RIGHT BRACHIAL pCO2 33 L (35-45) mmHg pO2 133 H* (75-100) mmHg Base Excess -0.4 (-2.0-2.0) O2 Saturation 96.5 (94-100) g/dF ABG pH 7.45 (7.35-7.45) ABG HCO3 22.9 (22-28) ABG O2 Sat (Measured) 99.3 (95-100) % Obdulio Test NOT APPLICABLE A-a Gradient 82 a/A Ratio 0.62 Hemoglobin 13.8 Carboxyhemoglobin 2.0 (0.0-6.9) % THgb Methemoglobin 0.8 L (1.4-1.5) % Potassium 4.1 (3.5-5.1) Temperature 37.0 C POC O2 Flow Rate 36 % Sodium (137-145) mmol/L Chloride (98-107) mmol/L Carbon Dioxide (22-30) mmol/L Anion Gap (5-15) MEQ/L BUN (9-20) mg/dL Creatinine (0.66-1.25) mg/dL Estimated GFR ML/MIN Glucose (74-106) mg/dL POC Glucometer (74 to 106) mg/dL Hemoglobin A1c (4.5-6.0) % Lactic Acid 3.6 H (0.4-2.0) Calcium (8.4-10.2) mg/dL Total Bilirubin (0.2-1.3) mg/dL AST (17-59) U/L ALT (0-50) U/L Alkaline Phosphatase (38-126) U/L Troponin I 0.016 (0.000-0.034) ng/mL Serum Total Protein (6.3-8.2) g/dL Albumin (3.5-5.0) g/dL Urine Color (YELLOW) Urine Appearance (CLEAR) Urine pH (5-6) Ur Specific [place] (1.005-1.025) Urine Protein (Negative) Urine Ketones (NEGATIVE) Urine Blood (0-5) [place]/ul Urine Nitrite (NEGATIVE) Urine Bilirubin (NEGATIVE) Urine Urobilinogen (0-1) mg/dL Ur Leukocyte Esterase (NEGATIVE) Urine WBC (Auto) (0-5) /HPF Urine RBC (Auto) (0-2) /HPF U Hyaline Cast (Auto) (0-2) /LPF U Epithel Cells (Auto) (FEW) /HPF Urine Bacteria (Auto) (NEGATIVE) /HPF Urine Mucus (Auto) (NEGATIVE) /HPF Urine Culture Reflexed (NO) Urine Glucose (NEGATIVE) mg/dL 02/02/20 02/02/20 02/03/20 Range/Units 20:45 22:53 00:02 WBC (4.0-10.5) K/mm3 RBC (4.1-5.6) M/mm3 Hgb (12.5-18.0) gm/dl Hct (42-50) % MCV (78-100) fl MCH (26-32) pg MCHC (32-36) g/dl RDW (11.5-14.0) % Plt Count (150-450) K/mm3 MPV (7.5-11.0) fl Gran % (36.0-66.0) % Eos # (Auto) (0-0.5) Absolute Lymphs (auto) (1.0-4.6) Absolute Monos (auto) (0.0-1.3) Lymphocytes % (24.0-44.0) % Monocytes % (0.0-12.0) % Eosinophils % (0.00-5.0) % Basophils % (0.0-0.4) % Absolute Granulocytes (1.4-6.9) Segmented Neutrophils (36.-66.) % Lymphocytes (Manual) (24-44) % Monocytes (Manual) (0.0-12.0) % Basophils # (0-0.4) Platelet Estimate (NORMAL) RBC Morphology Puncture Site pCO2 (35-45) mmHg pO2 (75-100) mmHg Base Excess (-2.0-2.0) O2 Saturation (94-100) g/dF ABG pH (7.35-7.45) ABG HCO3 (22-28) ABG O2 Sat (Measured) (95-100) % Obdulio Test A-a Gradient a/A Ratio Hemoglobin Carboxyhemoglobin (0.0-6.9) % THgb Methemoglobin (1.4-1.5) % Potassium (3.5-5.1) Temperature C POC O2 Flow Rate % Sodium (137-145) mmol/L Chloride (98-107) mmol/L Carbon Dioxide (22-30) mmol/L Anion Gap (5-15) MEQ/L BUN (9-20) mg/dL Creatinine (0.66-1.25) mg/dL Estimated GFR ML/MIN Glucose (74-106) mg/dL POC Glucometer 141 H (74 to 106) mg/dL Hemoglobin A1c (4.5-6.0) % Lactic Acid 1.2 (0.4-2.0) Calcium (8.4-10.2) mg/dL Total Bilirubin (0.2-1.3) mg/dL AST (17-59) U/L ALT (0-50) U/L Alkaline Phosphatase (38-126) U/L Troponin I 0.015 (0.000-0.034) ng/mL Serum Total Protein (6.3-8.2) g/dL Albumin (3.5-5.0) g/dL Urine Color (YELLOW) Urine Appearance (CLEAR) Urine pH (5-6) Ur Specific [place] (1.005-1.025) Urine Protein (Negative) Urine Ketones (NEGATIVE) Urine Blood (0-5) [place]/ul Urine Nitrite (NEGATIVE) Urine Bilirubin (NEGATIVE) Urine Urobilinogen (0-1) mg/dL Ur Leukocyte Esterase (NEGATIVE) Urine WBC (Auto) (0-5) /HPF Urine RBC (Auto) (0-2) /HPF U Hyaline Cast (Auto) (0-2) /LPF U Epithel Cells (Auto) (FEW) /HPF Urine Bacteria (Auto) (NEGATIVE) /HPF Urine Mucus (Auto) (NEGATIVE) /HPF Urine Culture Reflexed (NO) Urine Glucose (NEGATIVE) mg/dL 02/03/20 02/03/20 02/03/20 Range/Units 04:20 04:20 04:20 WBC 1.6 L* (4.0-10.5) K/mm3 RBC 3.57 L (4.1-5.6) M/mm3 Hgb 10.9 L (12.5-18.0) gm/dl Hct 35.0 L (42-50) % MCV 98.0 (78-100) fl MCH 30.5 (26-32) pg MCHC 31.1 L (32-36) g/dl RDW 16.0 H (11.5-14.0) % Plt Count 71 L D (150-450) K/mm3 MPV 11.8 H (7.5-11.0) fl Gran % (36.0-66.0) % Eos # (Auto) (0-0.5) Absolute Lymphs (auto) (1.0-4.6) Absolute Monos (auto) (0.0-1.3) Lymphocytes % (24.0-44.0) % Monocytes % (0.0-12.0) % Eosinophils % (0.00-5.0) % Basophils % (0.0-0.4) % Absolute Granulocytes (1.4-6.9) Segmented Neutrophils 47 (36.-66.) % Lymphocytes (Manual) 39 (24-44) % Monocytes (Manual) 14 H (0.0-12.0) % Basophils # (0-0.4) Platelet Estimate DECREASED (NORMAL) RBC Morphology NORMAL Puncture Site pCO2 (35-45) mmHg pO2 (75-100) mmHg Base Excess (-2.0-2.0) O2 Saturation (94-100) g/dF ABG pH (7.35-7.45) ABG HCO3 (22-28) ABG O2 Sat (Measured) (95-100) % Obdulio Test A-a Gradient a/A Ratio Hemoglobin Carboxyhemoglobin (0.0-6.9) % THgb Methemoglobin (1.4-1.5) % Potassium 4.2 (3.5-5.1) Temperature C POC O2 Flow Rate % Sodium 134 L (137-145) mmol/L Chloride 101 (98-107) mmol/L Carbon Dioxide 28 (22-30) mmol/L Anion Gap 8.6 (5-15) MEQ/L BUN 17 (9-20) mg/dL Creatinine 1.53 H (0.66-1.25) mg/dL Estimated GFR 48.1 ML/MIN Glucose 120 H (74-106) mg/dL POC Glucometer (74 to 106) mg/dL Hemoglobin A1c 5.59 (4.5-6.0) % Lactic Acid (0.4-2.0) Calcium 8.1 L (8.4-10.2) mg/dL Total Bilirubin 0.30 (0.2-1.3) mg/dL AST 25 (17-59) U/L ALT 16 (0-50) U/L Alkaline Phosphatase 127 H (38-126) U/L Troponin I (0.000-0.034) ng/mL Serum Total Protein 6.4 (6.3-8.2) g/dL Albumin 2.8 L (3.5-5.0) g/dL Urine Color (YELLOW) Urine Appearance (CLEAR) Urine pH (5-6) Ur Specific [place] (1.005-1.025) Urine Protein (Negative) Urine Ketones (NEGATIVE) Urine Blood (0-5) [place]/ul Urine Nitrite (NEGATIVE) Urine Bilirubin (NEGATIVE) Urine Urobilinogen (0-1) mg/dL Ur Leukocyte Esterase (NEGATIVE) Urine WBC (Auto) (0-5) /HPF Urine RBC (Auto) (0-2) /HPF U Hyaline Cast (Auto) (0-2) /LPF U Epithel Cells (Auto) (FEW) /HPF Urine Bacteria (Auto) (NEGATIVE) /HPF Urine Mucus (Auto) (NEGATIVE) /HPF Urine Culture Reflexed (NO) Urine Glucose (NEGATIVE) mg/dL 02/03/20 02/03/20 02/03/20 Range/Units 07:14 11:25 14:30 WBC (4.0-10.5) K/mm3 RBC (4.1-5.6) M/mm3 Hgb (12.5-18.0) gm/dl Hct (42-50) % MCV (78-100) fl MCH (26-32) pg MCHC (32-36) g/dl RDW (11.5-14.0) % Plt Count (150-450) K/mm3 MPV (7.5-11.0) fl Gran % (36.0-66.0) % Eos # (Auto) (0-0.5) Absolute Lymphs (auto) (1.0-4.6) Absolute Monos (auto) (0.0-1.3) Lymphocytes % (24.0-44.0) % Monocytes % (0.0-12.0) % Eosinophils % (0.00-5.0) % Basophils % (0.0-0.4) % Absolute Granulocytes (1.4-6.9) Segmented Neutrophils (36.-66.) % Lymphocytes (Manual) (24-44) % Monocytes (Manual) (0.0-12.0) % Basophils # (0-0.4) Platelet Estimate (NORMAL) RBC Morphology Puncture Site pCO2 (35-45) mmHg pO2 (75-100) mmHg Base Excess (-2.0-2.0) O2 Saturation (94-100) g/dF ABG pH (7.35-7.45) ABG HCO3 (22-28) ABG O2 Sat (Measured) (95-100) % Obdulio Test A-a Gradient a/A Ratio Hemoglobin Carboxyhemoglobin (0.0-6.9) % THgb Methemoglobin (1.4-1.5) % Potassium (3.5-5.1) Temperature C POC O2 Flow Rate % Sodium (137-145) mmol/L Chloride (98-107) mmol/L Carbon Dioxide (22-30) mmol/L Anion Gap (5-15) MEQ/L BUN (9-20) mg/dL Creatinine (0.66-1.25) mg/dL Estimated GFR ML/MIN Glucose (74-106) mg/dL POC Glucometer 143 H 136 H (74 to 106) mg/dL Hemoglobin A1c (4.5-6.0) % Lactic Acid (0.4-2.0) Calcium (8.4-10.2) mg/dL Total Bilirubin (0.2-1.3) mg/dL AST (17-59) U/L ALT (0-50) U/L Alkaline Phosphatase (38-126) U/L Troponin I (0.000-0.034) ng/mL Serum Total Protein (6.3-8.2) g/dL Albumin (3.5-5.0) g/dL Urine Color [place] (YELLOW) Urine Appearance SLIGHTLY CLOUDY (CLEAR) Urine pH 5.0 (5-6) Ur Specific [place] 1.029 (1.005-1.025) Urine Protein 30 (Negative) Urine Ketones NEGATIVE (NEGATIVE) Urine Blood NEGATIVE (0-5) [place]/ul Urine Nitrite NEGATIVE (NEGATIVE) Urine Bilirubin NEGATIVE (NEGATIVE) Urine Urobilinogen 2 (0-1) mg/dL Ur Leukocyte Esterase NEGATIVE (NEGATIVE) Urine WBC (Auto) NONE (0-5) /HPF Urine RBC (Auto) NONE (0-2) /HPF U Hyaline Cast (Auto) 6-10 (0-2) /LPF U Epithel Cells (Auto) NONE (FEW) /HPF Urine Bacteria (Auto) NONE (NEGATIVE) /HPF Urine Mucus (Auto) SLIGHT (NEGATIVE) /HPF Urine Culture Reflexed YES (NO) Urine Glucose 50 (NEGATIVE) mg/dL Accuchecks Date 02/03/20 Date 02/03/20 Date 02/02/20 Time 11:30 Time 07:26 Time 23:00 - Radiology Impressions Radiology Exams & Impressions: Radiology Procedures Category Date Time Status BLADDER [US] Stat Exams 02/03/20 10:01 Completed CHEST 1 VIEW (PORTABLE) Stat Exams 02/02/20 17:22 Completed - Other Procedures and Tests Respiratory Therapy 02/02/20 20:09 Oxygen NASAL CANNULA 2 lpm Assessment/Plan (1) Overdose Current Visit: Yes Status: Resolved Qualifiers: Encounter type: initial encounter Injury intent: accidental or unintentional Qualified Code(s): T50.901A - Poisoning by unspecified drugs, medicaments and biological substances, accidental (unintentional), initial encounter Assessment & Plan: From meds given at Dr. Alicia's office - I tried to call them today but they are already closed. Reportedly was dilaudid. Will restart his home pain meds now. Off narcan drip since this morning. Code(s): T50.901A - POISONING BY UNSP DRUG/MEDS/BIOL SUBST, ACCIDENTAL, INIT (2) Leukopenia Current Visit: Yes Status: Chronic Qualifiers: Leukopenia type: neutropenia Neutropenia type: secondary to cancer chemotherapy Qualified Code(s): D70.1 - Agranulocytosis secondary to cancer chemotherapy; T45.1X5A - Adverse effect of antineoplastic and immunosuppressive drugs, initial encounter Assessment & Plan: I spoke with Dr. Arreaga, this is chronic. He did not have an issues with sending pt home tomorrow, will recheck labs in the a.m. He will f/u with pt in office Thursday or Thursday (I will tell to call Dr. Arreaga's office and schedule that on Thursday). Code(s): D72.819 - DECREASED WHITE BLOOD CELL COUNT, UNSPECIFIED (3) Gastric cancer Current Visit: Yes Status: Chronic Qualifiers: Malignant neoplasm of stomach location: unspecified location Qualified Code(s): C16.9 - Malignant neoplasm of stomach, unspecified (4) Chronic back pain Current Visit: Yes Status: Acute Qualifiers: Back pain location: low back pain Back pain laterality: midline Sciatica presence: without sciatica Qualified Code(s): M54.5 - Low back pain; G89.29 - Other chronic pain Assessment & Plan: He is supposed to get a pain pump placed in the next few weeks if his platelets are acceptable. Code(s): M54.9 - DORSALGIA, UNSPECIFIED; G89.29 - OTHER CHRONIC PAIN (5) Thrombocytopenia Current Visit: Yes Status: Acute (6) Diabetes mellitus Current Visit: No Status: Chronic Qualifiers: Diabetes mellitus type: type 2 Diabetes mellitus terminal manager insulin use: without prison use Diabetes mellitus complication status: with hyperglycemia Qualified Code(s): E11.65 - Type 2 diabetes mellitus with hyperglycemia Code(s): E11.9 - TYPE 2 DIABETES MELLITUS WITHOUT COMPLICATIONS (7) Frequent falls Current Visit: No Status: Chronic Assessment & Plan: He is planning to get HHC and home PT on discharge. Code(s): R29.6 - REPEATED FALLS (8) Hypertension Current Visit: No Status: Chronic Qualifiers: Hypertension type: essential hypertension Qualified Code(s): I10 - Essential (primary) hypertension Code(s): I10 - ESSENTIAL (PRIMARY) HYPERTENSION (9) Weakness Current Visit: No Status: Chronic Code(s): R53.1 - WEAKNESS
[2020-02-03] MEDS: Glucotrol 5 MG PO SCH (16:17)
[2020-02-03] MEDS ORDERED: OXYCODONE-ACETAMINOPHEN 10-325 PO PRN (17:20)
[2020-02-03] MEDS: Reglan 10 MG PO SCH (21:33)
[2020-02-03] MEDS: Lidoderm Patch 5% TOP SCH (23:46)
[2020-02-04] MEDS: Lidoderm Patch 5% TOP SCH (00:03)
[2020-02-04 06:04] LABS: Absolute Neutrophil Ct (ANC) 1.01 (1.4-6.9); BASOPHIL % 0.5 % (0.0-0.4); Basophil (Absolute #) 0.01 (0-0.4); Eosinophil % 2.2 % (0.00-5.0); Eosinophil (Absolute #) 0.04 (0-0.5); Hematocrit 35.1 % (42-50); Lymphocyte (Absolute #) 0.56 (1.0-4.6); Lymphocytes % 30.8 % (24.0-44.0); Mean Cell Volume 97.5 fl (78-100); Mean Corpuscular Hemoglobin 30.6 pg (26-32); Mean Corpuscular Hgb Concent. 31.3 g/dl (32-36); Mean Platelet Volume 11.9 fl (7.5-11.0); Neutrophil % 55.5 % (36.0-66.0); Platelet Count 70 K/mm3 (150-450); Red Cell Distribution Width 15.6 % (11.5-14.0)
[2020-02-04 06:18] LABS: ANION GAP 8.3 MEQ/L (5-15); Calcium 8.4 mg/dL (8.4-10.2); Creatinine 1 1.44 mg/dL (0.66-1.25); EST GLOMERULAR FILTRATION RATE 51.5 ML/MIN; Potassium 4.4 mmol/L (3.5-5.1)
[2020-02-04 06:19] LABS: White Blood Count 1.8 K/mm3 (4.0-10.5)
[2020-02-04 07:26] VITALS: PULSE 61; O2SAT 95
[2020-02-04 07:35] LABS: Slide Review 1 YES
[2020-02-04] MEDS: Avapro 150 MG PO SCH (09:29)
[2020-02-04] MEDS: XARELTO 10 MG TABLET PO SCH (09:29)
[2020-02-04] MEDS: Protonix 40MG Tablet PO SCH (09:30)
[2020-02-04] MEDS: DESYREL 50 MG PO SCH (09:30)
[2020-02-04] MEDS: Cordarone 200 MG PO SCH (09:30)
[2020-02-04] MEDS: Glucotrol 5 MG PO SCH (09:30)
[2020-02-04] MEDS: Lopressor 50 MG PO SCH (09:30)
[2020-02-04] MEDS ORDERED: Lidoderm Patch 5% TOP SCH (10:00)
[2020-02-04 13:34] VITALS: BP 168/77
[2020-02-04] MEDS ORDERED: Sodium Chloride 0.9% 500 ML 500 ML IV ONE (13:42)
--- NOTE | 2020-02-04 13:59 | PCM.DS ---
Discharge Summary Date of Admission: 02/02/20 19:44 Admitting Physician: LIZET MCFARLANE Primary Care Provider: LIZET MCFARLANE Allergies Allergies Bnjyudl-Vvt-Euz Reductase Inhibitor Allergy (Severe, Verified 02/02/20 20:20) Swelling Penicillins Allergy (Intermediate, Verified 02/02/20 20:20) Itching duloxetine [From Cymbalta] Adverse Reaction (Severe, Verified 02/02/20 20:20) hallucinations Hospital Summary - Hospital Course Hospital Course: Patient was admitted through ER after collapsing at home. He had just received an injection x 2 of Dilaudid from his pain management doctor ,Dr Huerta and is awaitng a pain stimulater device. He was treated on Medsurg with Narcan drip . He has walked in the [place] with a walker today .His appetite was good yesterday and this morning. He states he is pain free right now . Has Lidoderm patch on low back. Has not had pain med in the past 24 hours+. Other issues include Urinary retention requiring a vázquez ,urine culture is pending and he is passing clear yellow urine. Hyponatremia day of discharge sodium = 132,given 500 cc NS .Neutropenia on chemo for gastric cancer has been in reverse isolation and no signs of infection. - Vitals & Intake/Output Vital Signs: Vital Signs Temperature 98.7 F 02/04/20 12:00 Pulse Rate 61 02/04/20 12:00 Respiratory Rate 16 02/04/20 12:00 Blood Pressure 168/77 02/04/20 12:00 O2 Sat by Pulse Oximetry 95 02/04/20 12:00 Intake & Output: Intake & Output 02/02/20 02/03/20 02/04/20 02/05/20 11:59 11:59 11:59 11:59 Intake Total 730 340 Output Total 0 950 Balance 730 -610 Weight 105.7 kg - Lab Result Diagrams: 02/04/20 05:55 02/04/20 05:55 Lab Results-Last 24 Hrs: Lab Results-Last 24 Hours 02/03/20 02/03/20 02/04/20 Range/Units 14:30 16:05 05:55 WBC 1.8 L* (4.0-10.5) K/mm3 RBC 3.60 L (4.1-5.6) M/mm3 Hgb 11.0 L (12.5-18.0) gm/dl Hct 35.1 L (42-50) % MCV 97.5 (78-100) fl MCH 30.6 (26-32) pg MCHC 31.3 L (32-36) g/dl RDW 15.6 H (11.5-14.0) % Plt Count 70 L (150-450) K/mm3 MPV 11.9 H (7.5-11.0) fl Gran % 55.5 (36.0-66.0) % Eos # (Auto) 0.04 (0-0.5) Absolute Lymphs (auto) 0.56 L (1.0-4.6) Absolute Monos (auto) 0.20 (0.0-1.3) Lymphocytes % 30.8 (24.0-44.0) % Monocytes % 11.0 (0.0-12.0) % Eosinophils % 2.2 (0.00-5.0) % Basophils % 0.5 (0.0-0.4) % Absolute Granulocytes 1.01 L (1.4-6.9) Basophils # 0.01 (0-0.4) Sodium (137-145) mmol/L Potassium (3.5-5.1) mmol/L Chloride (98-107) mmol/L Carbon Dioxide (22-30) mmol/L Anion Gap (5-15) MEQ/L BUN (9-20) mg/dL Creatinine (0.66-1.25) mg/dL Estimated GFR ML/MIN Glucose (74-106) mg/dL POC Glucometer 139 H (74 to 106) mg/dL Calcium (8.4-10.2) mg/dL Urine Color [place] (YELLOW) Urine Appearance SLIGHTLY CLOUDY (CLEAR) Urine pH 5.0 (5-6) Ur Specific [place] 1.029 (1.005-1.025) Urine Protein 30 (Negative) Urine Ketones NEGATIVE (NEGATIVE) Urine Blood NEGATIVE (0-5) [place]/ul Urine Nitrite NEGATIVE (NEGATIVE) Urine Bilirubin NEGATIVE (NEGATIVE) Urine Urobilinogen 2 (0-1) mg/dL Ur Leukocyte Esterase NEGATIVE (NEGATIVE) Urine WBC (Auto) NONE (0-5) /HPF Urine RBC (Auto) NONE (0-2) /HPF U Hyaline Cast (Auto) 6-10 (0-2) /LPF U Epithel Cells (Auto) NONE (FEW) /HPF Urine Bacteria (Auto) NONE (NEGATIVE) /HPF Urine Mucus (Auto) SLIGHT (NEGATIVE) /HPF Urine Culture Reflexed YES (NO) Urine Glucose 50 (NEGATIVE) mg/dL Slides for Path Review YES 02/04/20 02/04/20 Range/Units 05:55 06:59 WBC (4.0-10.5) K/mm3 RBC (4.1-5.6) M/mm3 Hgb (12.5-18.0) gm/dl Hct (42-50) % MCV (78-100) fl MCH (26-32) pg MCHC (32-36) g/dl RDW (11.5-14.0) % Plt Count (150-450) K/mm3 MPV (7.5-11.0) fl Gran % (36.0-66.0) % Eos # (Auto) (0-0.5) Absolute Lymphs (auto) (1.0-4.6) Absolute Monos (auto) (0.0-1.3) Lymphocytes % (24.0-44.0) % Monocytes % (0.0-12.0) % Eosinophils % (0.00-5.0) % Basophils % (0.0-0.4) % Absolute Granulocytes (1.4-6.9) Basophils # (0-0.4) Sodium 132 L (137-145) mmol/L Potassium 4.4 (3.5-5.1) mmol/L Chloride 100 (98-107) mmol/L Carbon Dioxide 28 (22-30) mmol/L Anion Gap 8.3 (5-15) MEQ/L BUN 20 (9-20) mg/dL Creatinine 1.44 H (0.66-1.25) mg/dL Estimated GFR 51.5 ML/MIN Glucose 103 (74-106) mg/dL POC Glucometer 125 H (74 to 106) mg/dL Calcium 8.4 (8.4-10.2) mg/dL Urine Color (YELLOW) Urine Appearance (CLEAR) Urine pH (5-6) Ur Specific [place] (1.005-1.025) Urine Protein (Negative) Urine Ketones (NEGATIVE) Urine Blood (0-5) [place]/ul Urine Nitrite (NEGATIVE) Urine Bilirubin (NEGATIVE) Urine Urobilinogen (0-1) mg/dL Ur Leukocyte Esterase (NEGATIVE) Urine WBC (Auto) (0-5) /HPF Urine RBC (Auto) (0-2) /HPF U Hyaline Cast (Auto) (0-2) /LPF U Epithel Cells (Auto) (FEW) /HPF Urine Bacteria (Auto) (NEGATIVE) /HPF Urine Mucus (Auto) (NEGATIVE) /HPF Urine Culture Reflexed (NO) Urine Glucose (NEGATIVE) mg/dL Slides for Path Review Micro Results-Entire Visit: Accuchecks Date 02/04/20 Date 02/03/20 Time 07:30 Time 16:10 - Radiology Exams Ordered Rad Exams-Entire Visit: Radiology Procedures Category Date Time Status BLADDER [US] Stat Exams 02/03/20 10:01 Completed CHEST 1 VIEW (PORTABLE) Stat Exams 02/02/20 17:22 Completed - Procedures and Test Procedures and Tests throughout Hospitalization: Therapy Orders & Screens 02/02/20 20:09 Oxygen NASAL CANNULA 2 lpm Comment: Diagnosis: overdose 02/03/20 11:43 PT Eval & Treat (MD Order) ROUTINE Reason for Eval:: weakness, back pain Diagnosis: OVERDOSE PAIN MEDICATION Discharge Exam General Appearance: no apparent distress, other (Is pale sitting up in [place] visiting with his .) Neurologic Exam: alert, oriented x 3, cooperative, other (no focal weakness but generalized weakness) Eye Exam: eyes nml inspection Respiratory Exam: normal breath sounds, lungs clear Cardiovascular Exam: regular rate/rhythm, murmur Gastrointestinal/Abdomen Exam: soft, normal bowel sounds (noontender,is belching) Male Genitalia Exam: other (vázquez catheter in place with approx 600 cc yellow cleaqr urine) Rectal Exam: deferred Back Exam: other (lidoderm patches in place) Extremity Exam: normal inspection (no edema) Skin Exam: warm, dry, pale Final Diagnosis/Problem List - Final Discharge Diagnosis/Problem (1) Overdose Current Visit: Yes Status: Resolved Assessment & Plan: Dilaudid injections given by Dr Huerta Code(s): T50.901A - POISONING BY UNSP DRUG/MEDS/BIOL SUBST, ACCIDENTAL, INIT (2) Hyponatremia Current Visit: Yes Status: Acute Assessment & Plan: sodium = 132 day od discharge,given 500ml NS prior to discharge. Code(s): E87.1 - HYPO-OSMOLALITY AND HYPONATREMIA (3) Chronic back pain Current Visit: Yes Status: Chronic Assessment & Plan: Pain meds managed by Dr Huerta and states he has 29 Percocet tabs at home and prefer to use these rather than the Dilaudid . NOTE -[facility] does not have the Dilaudid at their pharmacy and the Dilauid was not filled. will contact PM office on Thursday. Lidoderm patc Rx given. Code(s): M54.9 - DORSALGIA, UNSPECIFIED; G89.29 - OTHER CHRONIC PAIN (4) Gastric cancer Current Visit: Yes Status: Chronic Assessment & Plan: Has appt to see Dr Arreaga oncologist. (5) Urinary retention Current Visit: Yes Status: Acute Assessment & Plan: discharge with foely cath/ leg bag to follow with Urology. Code(s): R33.9 - RETENTION OF URINE, UNSPECIFIED (6) Physical deconditioning Current Visit: Yes Status: Chronic Assessment & Plan: PT Code(s): R53.81 - OTHER MALAISE - Discharge Disposition: HOME HEALTH SERVICE Condition: Stable Prescriptions: New Lidocaine HCl 5% Patch [Lidoderm Patch 5%] 2 patch TOP DAILY #60 patch Continue Trazodone HCl 50 mg [Desyrel 50 mg] 50 mg PO BID Metoclopramide HCl 10 mg [Reglan 10 MG] 10 mg PO HS Omeprazole Magnesium [Prilosec Otc] 20 mg PO DAILY Oxycodone / APAP 10/325 mg [Oxycodone-Acetaminophen 10-325] 1 tab PO QID PRN PRN #10 tablet MDD 4 PRN Reason: Pain glipiZIDE [Glipizide] 5 mg PO BID Rivaroxaban 10 mg Tablet [Xarelto 10 mg Tablet] 10 mg PO DAILY Rivaroxaban [Xarelto] 15 mg PO DAILY Metoprolol Tartrate 50 mg [Lopressor 50 MG] 50 mg PO BID Irbesartan 300 mg PO DAILY Amiodarone HCl 200 mg PO DAILY Instructions: How to Care for Your Vázquez Catheter, Male Additional Instructions: FOLLOW UP WITH DR. PARSONS ON THURSDAY AT SCHEDULED TIME. Follow up with: ORALIA ARREAGA [CONSULTING PHYSICIAN] - 02/08/20 SHALINI MAGANA DO [NON-STAFF PHY W/O PRIVILEGES] - Call for Appointment
[2020-02-06 07:23] LABS: Prostate Specific Antigen 1.11 ng/mL (<=6.50)
== END 2020-02-04 15:36 | disposition home health service (06) ==
LOC: ED 17:18 → ICU 19:44
PROVIDERS: ADMIT Family Medicine; ATTEND Family Medicine
DX: T40.2X1A Poisoning by other opioids, accidental (unintentional), initial encounter (principal); E11.9 Type 2 diabetes mellitus without complications; I10 Essential (primary) hypertension; C16.9 Malignant neoplasm of stomach, unspecified; J44.9 Chronic obstructive pulmonary disease, unspecified; R33.9 Retention of urine, unspecified; E78.00 Pure hypercholesterolemia, unspecified; D72.819 Decreased white blood cell count, unspecified; M54.9 Dorsalgia, unspecified; E87.1 Hypo-osmolality and hyponatremia; D69.6 Thrombocytopenia, unspecified; R29.6 Repeated falls; R53.1 Weakness; Z79.899 Other long term (current) drug therapy
CPT/HCPCS: 36000; 36415; 36600; 71045; 76705; 80048; 80053; 81001; 82375; 82803; 82962; 83036; 83605; 84153; 84154; 84484; 85025; 87086; 93005; 93041; 93268; 94760; 94770; 99285; J1885; J2310; A9270-GY; G0378

== ENCOUNTER 2020-06-29 13:41 | Emergency (ER) | payer MEDICARE ==
[2020-06-29] MEDS ORDERED: DUONEB 0.5-3 MG/3 ml Neb IH ONE ×2 (14:03→14:20)
[2020-06-29] MEDS ORDERED: solu-MEDROL 125 MG IV ONE (14:03)
[2020-06-29] MEDS ORDERED: Pepcid 20 MG VIAL IV ONE ×2 (14:04→14:17)
[2020-06-29] MEDS ORDERED: BABY ASPIRIN 81 MG CHEW PO ONE (14:04)
[2020-06-29] MEDS ORDERED: BENADRYL 50 MG/ML IV ONE (14:05)
[2020-06-29] MEDS ORDERED: Racepinephrine INH Solution 2.25% IH ONE ×2 (14:05→14:20)
--- NOTE | 2020-06-29 14:13 | ERPHSYRPT ---
- History of Present Illness Time Seen by Provider: 06/29/20 13:43 Historian: patient, family Exam Limitations: other Physician History: 69 years old male with complicated medical history with multiple myeloma, gastric cancer, CAD status post multiple stenting, atrial fibrillation on Xarelto/amiodarone on/pacemaker placement, hypertension, hyperlipidemia, congestive heart failure, diabetes mellitus presented in the ER with chief complaint of substernal chest pain sudden onset while he was watching TV almost 30 minutes prior to arrival. Patient has taken morphine and his pain is improved. Patient reports initially it was moderate intensity dull aching to sharp pain in the center of the chest without radiation, unable to affiliate any aggravating factors and denies any associated palpitations or shortness of breath. Patient also reports that he had a throat closing sensation with some swelling of tongue but no difficulty breathing. Patient has started taking Lasix recently for his bilateral lower extremity swellings and does take losartan for quite some time. Denies any fever chills or cough. Patient is maintaining oxygen saturation around 96% on room air without any apparent distress. Patient does have some memory issues/early dementia and history is obtained from and is limited. Timing/Duration: today, sudden, improved Activities at Onset: rest Quality: aching, dullness Location: substernal, central Chest Pain Radiation: no radiation Severity of Pain-Max: moderate Severity of Pain-Current: none Modifying Factors: Improves With: other Associated Symptoms: denies symptoms Prior Chest Pain/Cardiac Workup: cardiac cath Nitro Today/Relief: no nitro taken today Aspirin Treatment Today: unknown Allergies/Adverse Reactions: [id number] Reductase Inhibitor Allergy (Severe, Verified 06/29/20 13:50) Swelling Penicillins Allergy (Intermediate, Verified 06/29/20 13:50) Itching duloxetine [From Cymbalta] Adverse Reaction (Severe, Verified 06/29/20 13:50) hallucinations Home Medications: Metoclopramide HCl 10 mg [Reglan 10 MG] 10 mg PO HS 06/09/18 [History] Omeprazole Magnesium [Prilosec Otc] 20 mg PO DAILY 06/09/18 [History] Trazodone HCl 50 mg [Desyrel 50 mg] 25 mg PO BID 06/09/18 [History] Amiodarone HCl 200 mg PO DAILY 02/02/20 [History] Metoprolol Tartrate 50 mg [Lopressor 50 MG] 50 mg PO BID 02/02/20 [History] Rivaroxaban [Xarelto] 15 mg PO DAILY 02/02/20 [History] Clopidogrel Bisulfate 75 mg [PLAVIX 75 MG Tablet] 75 mg PO DAILY 06/29/20 [History] Furosemide 40 mg [Lasix 40 MG] 40 mg PO DAILY 06/29/20 [History] Losartan Potassium 100 mg PO DAILY 06/29/20 [History] Tamsulosin HCl 0.4 mg [Flomax 0.4 MG] 0.4 mg PO BID 06/29/20 [History] Hx Tetanus, Diphtheria Vaccination/Date Given: No Hx Influenza Vaccination/Date Given: No Hx Pneumococcal Vaccination/Date Given: No - Review of Systems Constitutional: No Symptoms Eyes: No Symptoms Ears, Nose, & Throat: Throat Swelling Respiratory: No Symptoms Cardiac: Chest Pain, Edema Abdominal/Gastrointestinal: No Symptoms Genitourinary Symptoms: No Symptoms Musculoskeletal: No Symptoms Skin: No Symptoms Neurological: No Symptoms Endocrine: No Symptoms Hematologic/Lymphatic: No Symptoms Immunological/Allergic: No Symptoms - Past Medical History Pertinent Past Medical History: Yes Neurological History: Migraines, Stroke ENT History: No Pertinent History Cardiac History: Angina, Arrhythmia, Coronary Artery Disease, High Cholesterol, Hypertension, Myocardial Infarction ([place]), Other Respiratory History: Bronchitis, CHF Endocrine Medical History: Diabetes Type II Musculoskeletal History: No Pertinent History GI Medical History: GERD, Irritable Bowel, Stomach Cancer History: No Pertinent History Psycho-Social History: No Pertinent History Male Reproductive Disorders: Prostate Problems Other Medical History: recent pacemaker placement in September 2018 - Past Surgical History Past Surgical History: Yes Neuro Surgical History: No Pertinent History Cardiac: CABG, Cardiac Catheterization, Cardiac Stent, Pacemaker, Vascular Surgery, Other Respiratory: No Pertinent History Gastrointestinal: Cholecystectomy Genitourinary: No Pertinent History Musculoskeletal: No Pertinent History Male Surgical History: No Pertinent History Other Surgical History: arterial surgery in both legs; right carotid surgery in last 10 years; left carotid surgery in August 2018- now 100% blocked after surgery - Social History Smoking Status: Former smoker How long have you smoked: 50+years Exposure to second hand smoke: No Drug Use: none Patient Lives Alone: No - Nursing Vital Signs Nursing Vital Signs: Initial Vital Signs Temperature 98.0 F 06/29/20 13:51 Pulse Rate 62 06/29/20 13:51 Respiratory Rate 18 06/29/20 13:51 Blood Pressure 184/96 06/29/20 13:51 O2 Sat by Pulse Oximetry 96 06/29/20 13:51 Pain Scale Pain Intensity 0 - Physical Exam General Appearance: no apparent distress, alert Eye Exam: PERRL/EOMI, eyes nml inspection Ears, Nose, Throat Exam: pharyngeal erythema (Tonsillar pillar and posterior pharynx well visible.) Neck Exam: normal inspection, non-tender, supple, full range of motion Respiratory Exam: normal breath sounds, lungs clear Cardiovascular Exam: normal heart sounds, irregular Gastrointestinal/Abdomen Exam: soft, normal bowel sounds Back Exam: normal inspection, normal range of motion Extremity Exam: normal range of motion, pedal edema Neurologic Exam: alert, oriented x 3, 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 tested Skin Exam: normal color SpO2 Interpretation: normal SpO2: 96 O2 Delivery: Room Air - Course EKG Interpreted by Me: RATE, A-fib Ordered Tests: Active Orders 24 hr Category Date Time Status Transit Operations Supervisor STAT Care 06/29/20 14:03 Active EKG-ER Only STAT Care 06/29/20 14:03 Active IV Insertion STAT Care 06/29/20 14:03 Active NPO (ED) STAT Care 06/29/20 14:03 Active CHEST 1 VIEW (PORTABLE) Stat Exams 06/29/20 14:03 Completed CBC W DIFF Stat Lab 06/29/20 14:15 Completed CMP Stat Lab 06/29/20 14:15 Completed MAGNESIUM Stat Lab 06/29/20 14:15 Completed NT PRO BNP Stat Lab 06/29/20 14:15 Completed PROTIME WITH INR Stat Lab 06/29/20 14:15 Completed PTT Stat Lab 06/29/20 14:15 Completed TROPONIN Q3H Lab 06/29/20 14:15 Completed TROPONIN Q3H Lab 06/29/20 17:30 Received TROPONIN Q3H Lab 06/29/20 20:15 Ordered TROPONIN Q3H Lab 06/29/20 23:15 Ordered TROPONIN Q3H Lab 06/30/20 02:15 Ordered UA W/RFX UR CULTURE Stat Lab 06/29/20 14:12 Completed Respiratory Therapy Assessment DAILY RT 06/29/20 15:03 Completed Medication Summary Discontinued Medications Generic Name Dose Route Start Last Admin Trade Name Nabor PRN Reason Stop Dose Admin Albuterol/Ipratropium 3 ml 06/29/20 14:03 06/29/20 14:27 Duoneb 0.5-3 Mg/3 Ml Neb IH 06/29/20 14:04 3 ml STAT ONE Administration Albuterol/Ipratropium Confirm 06/29/20 14:20 Duoneb 0.5-3 Mg/3 Ml Neb Administered 06/29/20 14:21 Dose 3 ml IH .STK-MED ONE Aspirin 324 mg 06/29/20 14:04 06/29/20 14:23 Baby Aspirin 81 Mg Chew PO 06/29/20 14:05 324 mg STAT ONE Administration Aspirin Confirm 06/29/20 14:17 Baby Aspirin 81 Mg Chew Administered 06/29/20 14:18 Dose 324 mg .ROUTE .STK-MED ONE Diphenhydramine HCl 25 mg 06/29/20 14:05 06/29/20 14:19 Benadryl 50 Mg/Ml IV 06/29/20 14:06 25 mg STAT ONE Administration Diphenhydramine HCl Confirm 06/29/20 14:17 Benadryl 50 Mg/Ml Administered 06/29/20 14:18 Dose 50 mg .ROUTE .STK-MED ONE Epinephrine 0.5 ml 06/29/20 14:05 06/29/20 14:20 Racepinephrine Inh Solution 2.25% IH 06/29/20 14:06 0.5 ml STAT ONE Administration Epinephrine Confirm 06/29/20 14:20 Racepinephrine Inh Solution 2.25% Administered 06/29/20 14:21 Dose 0.5 ml IH .STK-MED ONE Famotidine 20 mg 06/29/20 14:04 06/29/20 14:19 Pepcid 20 Mg Vial IV 06/29/20 14:05 20 mg STAT ONE Administration Famotidine Confirm 06/29/20 14:17 Pepcid 20 Mg Vial Administered 06/29/20 14:18 Dose 20 mg IV .STK-MED ONE Methylprednisolone Sodium Succinate 125 mg 06/29/20 14:03 06/29/20 14:18 Solu-Medrol 125 Mg IV 06/29/20 14:04 125 mg STAT ONE Administration Methylprednisolone Sodium Succinate Confirm 06/29/20 14:17 Solu-Medrol 125 Mg Administered 06/29/20 14:18 Dose 125 mg .ROUTE .STK-MED ONE Ondansetron HCl 4 mg 06/29/20 15:43 06/29/20 15:45 Zofran 4 Mg/2 Ml Vial IV 06/29/20 15:44 4 mg STAT ONE Administration Ondansetron HCl Confirm 06/29/20 15:44 Zofran 4 Mg/2 Ml Vial Administered 06/29/20 15:45 Dose 4 mg .ROUTE .STK-MED ONE Lab/Rad Data: Laboratory Result Diagrams 06/29/20 14:15 06/29/20 14:15 Laboratory Results 06/29/20 06/29/20 06/29/20 Range/Units 14:15 14:15 14:15 WBC (4.0-10.5) K/mm3 RBC (4.1-5.6) M/mm3 Hgb (12.5-18.0) gm/dl Hct (42-50) % MCV (78-100) fl MCH (26-32) pg MCHC (32-36) g/dl RDW (11.5-14.0) % Plt Count (150-450) K/mm3 Gran % (36.0-66.0) % Eos # (Auto) (0-0.5) Absolute Lymphs (auto) (1.0-4.6) Absolute Monos (auto) (0.0-1.3) Lymphocytes % (24.0-44.0) % Monocytes % (0.0-12.0) % Eosinophils % (0.00-5.0) % Basophils % (0.0-0.4) % Absolute Granulocytes (1.4-6.9) Basophils # (0-0.4) PT 19.6 H (8.83-12.87) SECONDS INR 1.72 (0.8-3.0) APTT 79.2 H (24.1-36.1) SECONDS Sodium 137 (137-145) mmol/L Potassium 3.9 (3.5-5.1) mmol/L Chloride 97 L (98-107) mmol/L Carbon Dioxide 35 H (22-30) mmol/L Anion Gap 7.9 (5-15) MEQ/L BUN 17 (9-20) mg/dL Creatinine 1.25 (0.66-1.25) mg/dL Estimated GFR > 60.0 ML/MIN Glucose 128 H (74-106) mg/dL Calcium 8.2 L (8.4-10.2) mg/dL Magnesium 1.8 (1.6-2.3) mg/dL Total Bilirubin 0.30 (0.2-1.3) mg/dL AST 26 (17-59) U/L ALT 12 (0-50) U/L Alkaline Phosphatase 162 H (38-126) U/L Troponin I < 0.012 (0.000-0.034) ng/mL NT-Pro-B Natriuret Pep 3350 H (0-900) pg/mL Serum Total Protein 6.7 (6.3-8.2) g/dL Albumin 3.1 L (3.5-5.0) g/dL Urine Color (YELLOW) Urine Appearance (CLEAR) Urine pH (5-6) Ur Specific [place] (1.005-1.025) Urine Protein (Negative) Urine Ketones (NEGATIVE) Urine Blood (0-5) [place]/ul Urine Nitrite (NEGATIVE) Urine Bilirubin (NEGATIVE) Urine Urobilinogen (0-1) mg/dL Ur Leukocyte Esterase (NEGATIVE) Urine WBC (Auto) (0-5) /HPF Urine RBC (Auto) (0-2) /HPF U Epithel Cells (Auto) (FEW) /HPF Urine Bacteria (Auto) (NEGATIVE) /HPF Urine Mucus (Auto) (NEGATIVE) /HPF Urine Culture Reflexed (NO) Urine Glucose (NEGATIVE) mg/dL 06/29/20 06/29/20 Range/Units 14:15 14:12 WBC 2.0 L (4.0-10.5) K/mm3 RBC 3.95 L (4.1-5.6) M/mm3 Hgb 10.9 L (12.5-18.0) gm/dl Hct 35.6 L (42-50) % MCV 90.1 (78-100) fl MCH 27.6 (26-32) pg MCHC 30.6 L (32-36) g/dl RDW 15.2 H (11.5-14.0) % Plt Count 40 L (150-450) K/mm3 Gran % 63.8 (36.0-66.0) % Eos # (Auto) 0.01 (0-0.5) Absolute Lymphs (auto) 0.50 L (1.0-4.6) Absolute Monos (auto) 0.22 (0.0-1.3) Lymphocytes % 24.8 (24.0-44.0) % Monocytes % 10.9 (0.0-12.0) % Eosinophils % 0.5 (0.00-5.0) % Basophils % 0.0 (0.0-0.4) % Absolute Granulocytes 1.29 L (1.4-6.9) Basophils # 0 (0-0.4) PT (8.83-12.87) SECONDS INR (0.8-3.0) APTT (24.1-36.1) SECONDS Sodium (137-145) mmol/L Potassium (3.5-5.1) mmol/L Chloride (98-107) mmol/L Carbon Dioxide (22-30) mmol/L Anion Gap (5-15) MEQ/L BUN (9-20) mg/dL Creatinine (0.66-1.25) mg/dL Estimated GFR ML/MIN Glucose (74-106) mg/dL Calcium (8.4-10.2) mg/dL Magnesium (1.6-2.3) mg/dL Total Bilirubin (0.2-1.3) mg/dL AST (17-59) U/L ALT (0-50) U/L Alkaline Phosphatase (38-126) U/L Troponin I (0.000-0.034) ng/mL NT-Pro-B Natriuret Pep (0-900) pg/mL Serum Total Protein (6.3-8.2) g/dL Albumin (3.5-5.0) g/dL Urine Color YELLOW (YELLOW) Urine Appearance CLEAR (CLEAR) Urine pH 5.0 (5-6) Ur Specific [place] 1.009 (1.005-1.025) Urine Protein NEGATIVE (Negative) Urine Ketones NEGATIVE (NEGATIVE) Urine Blood NEGATIVE (0-5) [place]/ul Urine Nitrite NEGATIVE (NEGATIVE) Urine Bilirubin NEGATIVE (NEGATIVE) Urine Urobilinogen NEGATIVE (0-1) mg/dL Ur Leukocyte Esterase NEGATIVE (NEGATIVE) Urine WBC (Auto) NONE (0-5) /HPF Urine RBC (Auto) NONE (0-2) /HPF U Epithel Cells (Auto) NONE (FEW) /HPF Urine Bacteria (Auto) NONE (NEGATIVE) /HPF Urine Mucus (Auto) SLIGHT (NEGATIVE) /HPF Urine Culture Reflexed NO (NO) Urine Glucose NEGATIVE (NEGATIVE) mg/dL - Progress Progress: improved Air Movement: good Progress Note: 06/29/20 15:46 69 years old is evaluated for chest pain and throat closing sensation with some swelling. Patient is not in any distress on presentation with no tachypnea/tachycardia and maintaining oxygen saturation well above 95% on room air. He is given racemic epi along with DuoNeb, Pepcid Benadryl and Solu- Medrol, on reevaluation patient is feeling better. His chest pain is resolved prior to arrival in the ER. EKG showed paced rhythm with A. fib rate controlled. Initial troponins are negative. Chest x-ray did not show any acute cardiopulmonary findings. Patient has a history of multiple myeloma and his white count usually runs low and today's to and it platelet of 40 and hemoglobin around 10. Patient does follow up with multiple specialist and [facility] and is requesting transfer up there for continuation of care. Patient has negative initial troponin. Aspirin has been given. Patient remained pain-free, on reevaluation his throat closing sensation is better and still not in any distress at all. I have called [facility] transfer center and patient would be transferred. 06/29/20 17:[address] Olea at [facility] ER, will accept patient after discussion with iron worker foreman. 06/29/20 17:[address] Melgoza iron worker foreman [facility] and patient is a ccepted for transfer. Blood Culture(s) Obtained: No Antibiotics given: No Discussed with : Other Counseled pt/family regarding: lab results, diagnosis, need for follow-up, rad results - Departure Departure Disposition: Transfer Clinical Impression: Chest pain, rule out acute myocardial infarction, Sensation of swollen throat Condition: Good Critical Care Time: Yes Critical Care Time(excluding separately billable procedures): Critical 30-74 mins Referrals: LIZET MCFARLANE [Primary Care Provider] -
[2020-06-29] MEDS ORDERED: BENADRYL 50 MG/ML ONE (14:17)
[2020-06-29] MEDS ORDERED: BABY ASPIRIN 81 MG CHEW ONE (14:17)
[2020-06-29] MEDS ORDERED: solu-MEDROL 125 MG ONE (14:17)
[2020-06-29 14:22] LABS: Appearance CLEAR (CLEAR); Bilirubin NEGATIVE (NEGATIVE); Blood NEGATIVE Ery/ul (0-5); Glucose NEGATIVE (NEGATIVE); Ketones NEGATIVE (NEGATIVE); Leukocyte Esterase NEGATIVE (NEGATIVE); Mucus SLIGHT /HPF (NEGATIVE); Nitrite NEGATIVE (NEGATIVE); Protein,Urine Dip NEGATIVE (Negative); Specific Gravity 1.009 (1.005-1.025); Urobilinogen NEGATIVE mg/dL (0-1)
[2020-06-29 14:31] LABS: Absolute Neutrophil Ct (ANC) 1.29 (1.4-6.9); Basophil (Absolute #) 0 (0-0.4); Eosinophil % 0.5 % (0.00-5.0); Eosinophil (Absolute #) 0.01 (0-0.5); Hematocrit 35.6 % (42-50); Hemoglobin 10.9 gm/dl (12.5-18.0); Lymphocytes % 24.8 % (24.0-44.0); Mean Cell Volume 90.1 fl (78-100); Mean Corpuscular Hemoglobin 27.6 pg (26-32); Mean Corpuscular Hgb Concent. 30.6 g/dl (32-36); Monocyte (Absolute #) 0.22 (0.0-1.3); Monocytes % 10.9 % (0.0-12.0); Neutrophil % 63.8 % (36.0-66.0); Platelet Count 40 K/mm3 (150-450); Red Blood Count 3.95 M/mm3 (4.1-5.6); Red Cell Distribution Width 15.2 % (11.5-14.0)
--- NOTE | 2020-06-29 14:35 | XRAY ---
Indication: Chest pain. Comparison: February 02, 2020. Portable apical lordotic chest remains clear. Heart is borderline enlarged again with CABG, left pacemaker, and right Port-A-Cath. Bony thorax intact again with osteopenia. No new/acute findings.
[2020-06-29 14:36] LABS: INR 1.72 (0.8-3.0); PROTIME 19.6 SECONDS (8.83-12.87)
[2020-06-29 14:38] LABS: PTT 79.2 SECONDS (24.1-36.1)
[2020-06-29 14:50] LABS: ALBUMIN 3.1 g/dL (3.5-5.0); ALKALINE PHOSPHATASE 162 U/L (38-126); ANION GAP 7.9 MEQ/L (5-15); BLOOD UREA NITROGEN 17 mg/dL (9-20); CHLORIDE 97 mmol/L (98-107); Calcium 8.2 mg/dL (8.4-10.2); Carbon Dioxide 35 mmol/L (22-30); Creatinine 1 1.25 mg/dL (0.66-1.25); EST GLOMERULAR FILTRATION RATE > 60.0 ML/MIN; Glucose 128 mg/dL (74-106); MAGNESIUM 1.8 mg/dL (1.6-2.3); NT PRO BNP 3350 pg/mL (0-900); Potassium 3.9 mmol/L (3.5-5.1); SGOT/AST 26 U/L (17-59); SGPT/ALT 12 U/L (0-50); SODIUM 137 mmol/L (137-145); Total Protein 6.7 g/dL (6.3-8.2)
[2020-06-29] MEDS ORDERED: Zofran 4 MG/2 ML VIAL IV ONE (15:43)
[2020-06-29] MEDS ORDERED: Zofran 4 MG/2 ML VIAL ONE (15:44)
[2020-06-29 17:48] VITALS: O2SAT 98
[2020-06-29] MEDS ORDERED: Lopressor 50 MG ONE (18:09)
[2020-06-29 18:11] VITALS: BP 189/94; PULSE 60
[2020-06-29] MEDS ORDERED: Lopressor 50 MG PO SCH (22:00)
== END 2020-06-29 19:32 | disposition short-term general hospital (02) ==
LOC: ED 13:41
DX: R07.89 Other chest pain (principal); R22.1 Localized swelling, mass and lump, neck; C90.00 Multiple myeloma not having achieved remission; I10 Essential (primary) hypertension; E78.5 Hyperlipidemia, unspecified; I50.9 Heart failure, unspecified; E11.9 Type 2 diabetes mellitus without complications; I48.91 Unspecified atrial fibrillation; I25.10 Atherosclerotic heart disease of native coronary artery without angina pectoris; I25.2 Old myocardial infarction; Z79.01 Long term (current) use of anticoagulants; Z79.899 Other long term (current) drug therapy; Z95.0 Presence of cardiac pacemaker
CPT/HCPCS: 36000; 36415; 71045; 80053; 81001; 83735; 83880; 84484; 85025; 85610; 85730; 93005; 93041; 94640; 96374; 96375; 99285; 99291; J1200; J2405; J2930; A9270-GY